=== PATIENT | male | born 1970 | race Caucasian/White ===

== ENCOUNTER 2016-06-24 11:21 | Observation (INO) ==
--- NOTE | 2016-06-24 11:37 | Emergency Department Note ---
Disposition Clinical Impression: Abdominal pain Qualifiers: Abdominal location: right lower quadrant Qualified Code(s): R10.31 - Right lower quadrant pain Disposition: Admitted As Inpatient Condition: Good Time of Disposition: 14:16 Abdominal Pain HPI - General Chief Complaint: ED Abdominal Pain Stated Complaint: "I think it may be appendicitis" Source: patient Mode of arrival: ambulatory Limitations: no limitations Nursing Notes Reviewed: Yes Vital Signs Reviewed: Yes - History of Present Illness HPI Narrative: 45-year-old male history of acute intermittent porphyria presents to the ED with right lower quadrant pain. On Friday he experienced periumbilical pain. Starting yesterday and today he has had nausea vomiting with episode nonbloody diarrhea. Today around 830, pain has migrated to the right lower quadrant and is sharp in nature. Reports a low-grade fever. Denies any urinary symptoms, scrotal pain, testicular tenderness. History of cholecystectomy. Denies any anticoagulants. Denies any bloody stools or black tarry stools. Pt Subjective Complaint: abdominal pain Pain Scale: 6 - Related Data Home Medications Medication Instructions Recorded Confirmed Citalopram [CeleXA] 20 mg PO DAILY 06/29/15 12/19/15 Indomethacin 50 mg PO BID 06/29/15 12/19/15 Metoprolol XL (24 HR) Succ [Toprol 50 mg PO DAILY PRN 06/29/15 12/19/15 Xl] Febuxostat [Uloric] 80 mg PO DAILY 12/19/15 12/19/15 Midodrine [ProAmatine] 5 mg PO DAILY 12/19/15 12/19/15 Omeprazole [PriLOSEC] 20 mg PO DAILY 12/19/15 12/19/15 Previous Rx's Medication Instructions Recorded Ondansetron ODT [Zofran ODT] 4 mg SL Q8HR #15 tab.rapdis 07/01/15 Allergies Allergy/AdvReac Type Severity Reaction Status Date / Time acetaminophen Allergy Hives Verified 06/29/15 15:39 [From Darvocet-N] cefepime Allergy Hives Verified 06/29/15 15:39 Erythromycin Base Allergy Hives Verified 06/29/15 15:39 morphine Allergy Hives Verified 06/29/15 15:39 piperacillin [From Zosyn] Allergy Hives Verified 06/29/15 15:39 propoxyphene Allergy Hives Verified 06/29/15 15:39 [From Darvocet-N] shellfish derived Allergy Anaphylaxis Verified 06/29/15 15:39 tazobactam [From Zosyn] Allergy Hives Verified 06/29/15 15:39 codeine AdvReac Gastrointestinal Verified 06/29/15 15:39 [From Tylenol-Codeine #3] Upset metoclopramide [From Reglan] AdvReac Hives Verified 12/19/15 09:39 All systems ED: reviewed and negative except as stated. Constitutional: Reports: fever. Denies: chills Cardiovascular: Denies: chest pain Respiratory: Denies: cough, dyspnea Gastrointestinal: Reports: abdominal pain, nausea, vomiting, diarrhea. Denies: melena, hematochezia Genitourinary: Denies: urgency, dysuria, frequency Musculoskeletal: Denies: back pain Integumentary: Denies: rash Abdominal Pain PMH - Past Medical History Medical history: Reports: kidney stones, SVT, other Psychiatric history: Reports: no psych history - Social History Smoking status: Never smoker Alcohol use: Reports: rarely Drug use: Reports: none Physical Exam - General Limitations: no limitations General appearance: alert, in distress (Uncomfortable) - Head Head exam: atraumatic, normocephalic, normal inspection - Eye Eye exam: Present: normal appearance, PERRL, EOMI - ENT ENT exam: normal exam, normal oropharynx, mucous membranes moist - Neck Neck exam: Present: normal inspection, full ROM, trachea midline - Chest Chest inspection: Present: normal inspection, symmetric chest wall rise - Respiratory Respiratory exam: Present: normal lung sounds bilaterally - Cardiovascular Cardiovascular exam: Present: regular rate, normal rhythm, normal heart sounds - Abdominal Exam Abdominal exam: Present: soft, tenderness, normal bowel sounds, psoas sign, Rovsing's sign, tenderness at McBurney's Point. Absent: distention, guarding, rebound, rigidity Abdominal tenderness: Present: RLQ, severe - Extremities Exam Extremities exam: Present: normal inspection, full ROM, normal capillary refill. Absent: tenderness, pedal edema, calf tenderness - Neurological Exam Neurological exam: Present: alert, oriented X3 - Psychiatric Psychiatric exam: Present: normal affect, normal mood - Skin Skin exam: Present: warm, dry, intact, normal color. Absent: rash Course Course Narrative: 45-year-old male presents with right lower quadrant pain. Clinically he appears to be appendicitis. Abdomen is soft, nondistended. Pain in right lower quadrant with positive McBurney's point and Rovsing sign. He is allergic to shellfish and CT contrast. Will get basic labs and CT without contrast. Allergic to morphine, Fentanyl ordered for pain. - Reevaluation(s) Reevaluation #1: Continues to have pain even with Fentanyl. He reports he can take Dilaudid or Demerol for pain. Awaiting CT scan results. Time: 13:02 Reevaluation #2: CT of the abdomen and pelvis does not reveal signs for appendicitis or obstructive uropathy. Patient continues to have right lower quadrant pain. Reports Dilaudid sent off his porphyria. Currently nauseated as a result. Phenergan ordered. Due to his acute onset this could be early appendicitis were CT may not be sensitive. Will consult Dr. Torres for possible admission. Time: 14:10 - Consultations Consultation #1: Spoke with adelina Ames to admit to surgery service. Recommend D5 1/2 NS 150 mL/hr. Given his acute onset, CT may not reveal appendicitis at this time. Admit for serial exams for possible appendicitis. Recommends low dose Dilaudid for pain control at 0.5 mg. Time: 14:12 Vital Signs Temperature 98.6 F 06/24/16 11:25 Pulse Rate 74 06/24/16 11:25 Respiratory Rate 16 06/24/16 11:25 Blood Pressure 130/90 06/24/16 11:25 O2 Sat by Pulse Oximetry 100 06/24/16 11:25 Temperature 98.6 F 06/24/16 11:25 Pulse Rate 65 06/24/16 12:46 Respiratory Rate 16 06/24/16 12:46 Blood Pressure 145/82 06/24/16 12:46 O2 Sat by Pulse Oximetry 96 06/24/16 12:46 Oxygen Delivery Oxygen Delivery Room Air Abdominal Pain - Medical Records Medical records reviewed: Yes I reviewed the patient's medical records. - Lab Data Lab results reviewed: Yes I reviewed the patient's lab results. Result diagrams: 06/24/16 12:41 06/24/16 12:41 Lab Results 06/24/16 06/24/16 06/24/16 Range/Units 12:41 12:41 12:41 WBC 4.0 L (4.3-11.1) K/mcL RBC 4.70 (4.19-5.50) M/mcL Hgb 15.0 (12.9-16.9) g/dL Hct 42.7 (37.5-50.1) % MCV 90.9 (83.0-100.0) fL MCH 31.9 (28.0-33.3) pg MCHC 35.1 (31.6-35.5) g/dL RDW 12.3 (11.5-14.5) % Plt Count 194 (140-400) K/mcL MPV 8.9 L (9.4-12.4) fL Immature Gran % 0.2 (0-4) % Seg Neutrophils % 52.3 % Lymphocytes % 37.3 % Monocytes % 7.5 % Eosinophils % 1.7 % Basophils % 1.0 % Neutrophils # 2.1 (1.6-8.9) K/mcL Lymphocytes # 1.5 (0.6-4.6) K/mcL Monocytes # 0.3 (0.0-1.3) K/mcL Eosinophils # 0.1 (0.0-0.6) K/mcL Basophils # 0.0 (0.0-0.2) K/mcL Immature Plt Fraction 1.8 (1.1-6.1) % PT 11.7 (9.4-12.1) Seconds INR 1.1 APTT 28.6 (26.0-36.0) Seconds Sodium 145 (136-145) mEq/L Potassium 3.7 (3.5-4.5) mEq/L Chloride 113 H (98-109) mEq/L Carbon Dioxide 22 (19-29) mEq/L BUN 14 (8-26) mg/dL Creatinine 1.05 (0.72-1.25) mg/dL Est GFR ( Amer) > 60 (> 60) Est GFR (Non-Af Amer) > 60 (> 60) BUN/Creatinine Ratio 13 (6-26) Glucose 101 H (70-99) mg/dL Calculated Osmolality 301 H (280-300) Calcium 8.6 (8.6-10.8) mg/dL Total Bilirubin 0.7 (0.2-1.2) mg/dL Direct Bilirubin 0.3 (0.0-0.5) mg/dL Indirect Bilirubin 0.4 (0.0-1.2) mg/dL AST 41 H (5-34) Units/L ALT 72 H (0-55) Units/L Alkaline Phosphatase 70 (38-126) Units/L Serum Total Protein 7.1 (6.0-8.3) g/dL Albumin 3.8 (3.5-5.0) g/dL Globulin 3.3 (2.4-3.5) g/dL Albumin/Globulin Ratio 1.2 (1.1-2.2) Lipase (8-78) Units/L 06/24/16 Range/Units 12:41 WBC (4.3-11.1) K/mcL RBC (4.19-5.50) M/mcL Hgb (12.9-16.9) g/dL Hct (37.5-50.1) % MCV (83.0-100.0) fL MCH (28.0-33.3) pg MCHC (31.6-35.5) g/dL RDW (11.5-14.5) % Plt Count (140-400) K/mcL MPV (9.4-12.4) fL Immature Gran % (0-4) % Seg Neutrophils % % Lymphocytes % % Monocytes % % Eosinophils % % Basophils % % Neutrophils # (1.6-8.9) K/mcL Lymphocytes # (0.6-4.6) K/mcL Monocytes # (0.0-1.3) K/mcL Eosinophils # (0.0-0.6) K/mcL Basophils # (0.0-0.2) K/mcL Immature Plt Fraction (1.1-6.1) % PT (9.4-12.1) Seconds INR APTT (26.0-36.0) Seconds Sodium (136-145) mEq/L Potassium (3.5-4.5) mEq/L Chloride (98-109) mEq/L Carbon Dioxide (19-29) mEq/L BUN (8-26) mg/dL Creatinine (0.72-1.25) mg/dL Est GFR ( Amer) (> 60) Est GFR (Non-Af Amer) (> 60) BUN/Creatinine Ratio (6-26) Glucose (70-99) mg/dL Calculated Osmolality (280-300) Calcium (8.6-10.8) mg/dL Total Bilirubin (0.2-1.2) mg/dL Direct Bilirubin (0.0-0.5) mg/dL Indirect Bilirubin (0.0-1.2) mg/dL AST (5-34) Units/L ALT (0-55) Units/L Alkaline Phosphatase (38-126) Units/L Serum Total Protein (6.0-8.3) g/dL Albumin (3.5-5.0) g/dL Globulin (2.4-3.5) g/dL Albumin/Globulin Ratio (1.1-2.2) Lipase 36 (8-78) Units/L - Radiology Data Radiology results reviewed: Yes I reviewed the patient's radiology results. Abdomen/Pelvis CT 06/24/16 11:36 IMPRESSION: 1. No acute finding in the abdomen or pelvis to account for patient's right lower quadrant abdominal pain. Specifically, there is no evidence of obstructive uropathy or appendicitis. D/ / 06/24/2016 13:51:39 Juan Alberto Lazaro MD / [email or web address] Interpreting Provider: Juan Alberto Lazaro MD Attestation Statement - Attestation Attestation: Patient was seen with resident physician. I reviewed the history, physical, assessment and plan, and agree with the findings. I also personally evaluated this patient and had [id number] time with this patient. 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 Patient's had nausea and vomiting as well pain started originally in the periumbilical area and has since radiated to the right lower quadrant where it has remained. Patient's exquisitely tender to palpation and is concerned that he might have appendicitis which prompted him to come to the emergency department. No fevers or chills at this point no dysuria. On examination ENT is normal heart and lungs are normal. Abdomen is soft there is exquisite tenderness with guarding in the right lower quadrant. Bowel sounds are present. Extremities are unremarkable. We will do CT scan without contrast as the patient is allergic to try and help ascertain the extent of his abdominal issues. Additionally will get lab tests and treat his pain as well as his nausea. Disposition according to the findings of the workup. CT scan did not show any acute abnormalities. Workup was otherwise normal. Patient had some difficulty tolerating pain medication which exacerbated his porphyria. This was treated while in the emergency department as well. Although the imaging was okay the patient's clinical exam was very suggestive of appendicitis and her concerns that might have been an early development still. We talked with Dr. martinez with whom the patient knows, and he agreed to admit the patient for serial abdominal examinations. We manage the pain and nausea this patient to the best of our ability will not emerge department will be admitted to Dr. martinez for further evaluation and treatment. I agree with the resident physician assessment and plan.
[2016-06-24] MEDS ORDERED: *HR* FentaNYL (PF) 100 MCG/2 ML VIAL IVP ONE ×2 (11:42→13:30)
[2016-06-24] MEDS ORDERED: Ondansetron 4 MG/2 ML VIAL IVP STA (12:09)
[2016-06-24 12:48] LABS: Eosinophils # 0.1 K/mcL (0.0-0.6); Eosinophils % 1.7 %; Hematocrit 42.7 % (37.5-50.1); Immature Granulocytes % 0.2 % (0-4); Immature Platelets 1.8 % (1.1-6.1); Lymphocytes # 1.5 K/mcL (0.6-4.6); Lymphocytes % 37.3 %; Mean Corpuscular HGB Conc 35.1 g/dL (31.6-35.5); Mean Corpuscular Hemoglobin 31.9 pg (28.0-33.3); Mean Corpuscular Volume 90.9 fL (83.0-100.0); Mean Platelet Volume 8.9 fL (9.4-12.4); Monocytes # 0.3 K/mcL (0.0-1.3); Monocytes % 7.5 %; Neutrophils # 2.1 K/mcL (1.6-8.9); Platelet Count 194 K/mcL (140-400); Red Cell Distribution Width 12.3 % (11.5-14.5); Segmented Neutrophils % 52.3 %
[2016-06-24 12:55] LABS: INR 1.1; Prothrombin Time 11.7 Seconds (9.4-12.1)
[2016-06-24] MEDS ORDERED: *HR* HYDROmorphone (PF) 1 MG/ML SYRINGE IVP ONE (12:56)
[2016-06-24 12:57] LABS: Activated Partial Thrombo Time 28.6 Seconds (26.0-36.0)
[2016-06-24 13:02] LABS: Alanine Aminotransferase 72 Units/L (0-55); Albumin 3.8 g/dL (3.5-5.0); Albumin/Globulin Ratio 1.2 (1.1-2.2); Alkaline Phosphatase 70 Units/L (38-126); Aspartate Amino Transferase 41 Units/L (5-34); BUN/Creatinine Ratio 13 (6-26); Bilirubin,Direct 0.3 mg/dL (0.0-0.5); Bilirubin,Indirect 0.4 mg/dL (0.0-1.2); Bilirubin,Total 0.7 mg/dL (0.2-1.2); Blood Urea Nitrogen 14 mg/dL (8-26); Calcium 8.6 mg/dL (8.6-10.8); Carbon Dioxide 22 mEq/L (19-29); Chloride 113 mEq/L (98-109); Globulin 3.3 g/dL (2.4-3.5); Glucose 101 mg/dL (70-99); Osmolality,Calculated 301 (280-300); Potassium 3.7 mEq/L (3.5-4.5); Sodium 145 mEq/L (136-145); Total Protein 7.1 g/dL (6.0-8.3); eGFR For African Americans > 60 (> 60); eGFR For Non-African Americans > 60 (> 60)
[2016-06-24] MEDS ORDERED: *HR* Dextrose 50 % in Water (Syg) 50 ML SYRINGE IVP ONE (13:29)
[2016-06-24] MEDS ORDERED: *HR* Promethazine 25 MG/ML VIAL IVP ONE ×2 (13:31→17:29)
[2016-06-24] MEDS: D5% in 0.45% NACL 1,000 ML IVC SCH ×2 (15:54→23:32)
[2016-06-24] MEDS: *HR* FentaNYL (PF) 100 MCG/2 ML VIAL IVP ONE ×2 (16:03→16:13)
[2016-06-24] MEDS ORDERED: *HR* Promethazine 25 MG/ML VIAL ONE (17:32)
[2016-06-24] MEDS: *HR* HYDROmorphone (PF) 1 MG/ML SYRINGE IVP PRN ×4 (18:59→23:32)
[2016-06-24] MEDS: MetroNIDAZOLE 500 MG/100 ML 500 MG/100 ML BAG IVPB SCH (18:59)
[2016-06-24] MEDS: Pantoprazole 40 MG VIAL IVP SCH (19:14)
--- NOTE | 2016-06-24 19:18 | General Surg History&Physical ---
Date of Encounter: 06/24/16 Time of Encounter: 18:15 History of Present Illness Chief complaint: Acute right lower quadrant abdominal pain, nausea and vomiting HPI: Mr. Jordan is a 45 year old male referred to [facility] after presenting to the [facility] ED with new onset right lower quadrant abdominal pain, nausea, and vomiting. Patient indicates symptoms started last evening but became acutely severe this morning prompting the patient to present to the Emergency Department for further evaluation and treatment. Patient was found to be exquisitely tender in the right lower quadrant. Laboratories were nondiagnostic with white count 4.0, hemoglobin 15, hematocrit 42.7, platelet count 194,000. Electrolytes, BUN, creatinine within normal limits. Total bilirubin 0.7, AST 41, ALT 72, alkaline phosphatase 70. Past medical history: Porphyria, kidney stones, paroxysmal SVT; avascular necrosis of the right hip Surgical history: Cardiac ablation for SVT; cystectomy 1995; right total hip for avascular necrosis 2013; right knee arthroscopy x 2 Allergies: Darvocet (propoxyphene), cefepime, erythromycin, morphine, codeine, metoclopramide. The patient indicates he tolerates Dilaudid. Medications: Citalopram 20 mg by mouth daily Indomethacin 50 mg by mouth twice a day Metoprolol XL 50 mg by mouth daily when necessary Fubuxostat (uloric) 80 mg by mouth daily Midodrine 5 mg by mouth daily Omeprazole 20 mg by mouth daily Social history: The patient is employed [employer]; the patient does not smoke, never has; he denies any illicit drug use or alcohol consumption. Physical examination: Age-appropriate male; sent quietly in his hospital bed. The patient is afebrile, 97.6, pulse 69, respirations 16, blood pressure 148/91. SPO2 on room air 98-100%. Skin is warm, no obvious jaundice Lungs: Clear, there is noted abdominal pain on deep inspiration. The patient indicates "it hurts to walk" Cardiac: Regular rate, no appreciable murmurs Abdomen: Soft with tenderness in the right lower quadrant; no discernible masses. Referred pain to the right lower quadrant when the left lower quadrant is palpated (Rovsing sign). No obvious rebound. Bowel sounds were sent. Extremities: No obvious clubbing cyanosis or edema. Laboratories: As noted above CT was reviewed with [facility] - the appendix was visualized and appeared normal. No acute findings in the abdomen or pelvis. No renal or ureteral stones detected. Mild fatty atrophy of the colon submucosa is noted which may be indicative of colitis or other chronic inflammation v an incidental finding in this acutely ill patient. It is possible for CT to be falsely negative if imaging completed within 24 hours onset of symptoms. Plan : admit for observation, serial abdominal exams. patient to remain NPO with IV fluids, pain control and antiemetics repeat labs in AM. Past Med Surg Social Fam HX - Past Medical History Medical history: kidney stones, SVT, other Psychiatric history: no psych history - Past Surgical History Surgical History: cholecystectomy, hip replacement - Social History Smoking Status: Never smoker Smokeless Tobacco Status: No Alcohol use: rarely Drug use: none - Family History Mother Adopted: No Living Status: Still Living Hx Family Cardiac Disorders: Yes (cardiac thoracic aneursym, Afib) Hx Family Respiratory Disorders: No Hx Family Cancer: No Hx Family GI Disorders: No Hx Family Endocrine Disorder: Yes (thyroid removal) Hx Family Neuromuscular Disorders: No Hx Family Neurologic Disorders: Yes (migranes) Hx Family HEENT Disorders: No Hx Family Autoimmune Disorders: No Father Living Status: Still Living Hx Family Cardiac Disorders: Yes (HTN, Cardiac Stent) Hx Family Endocrine Disorder: Yes (DM) Medications and Allergies Citalopram [CeleXA] 20 mg PO DAILY 06/29/15 [History] Metoprolol XL (24 HR) Succ [Toprol Xl] 50 mg PO DAILY PRN 06/29/15 [History] Febuxostat [Uloric] 120 mg PO DAILY 12/19/15 [History] Colchicine [Colcrys] 0.6 mg PO DAILY 06/24/16 [History] Ondansetron ODT [Zofran ODT] 4 mg SL Q6H PRN 06/24/16 [History] Allergies acetaminophen [From Darvocet-N] Allergy (Verified 06/29/15 15:39) Hives cefepime Allergy (Verified 06/29/15 15:39) Hives Erythromycin Base Allergy (Verified 06/29/15 15:39) Hives morphine Allergy (Verified 06/29/15 15:39) Hives piperacillin [From Zosyn] Allergy (Verified 06/29/15 15:39) Hives propoxyphene [From Darvocet-N] Allergy (Verified 06/29/15 15:39) Hives shellfish derived Allergy (Verified 06/29/15 15:39) Anaphylaxis tazobactam [From Zosyn] Allergy (Verified 06/29/15 15:39) Hives codeine [From Tylenol-Codeine #3] Adverse Reaction (Verified 06/29/15 15:39) Gastrointestinal Upset metoclopramide [From Reglan] Adverse Reaction (Verified 12/19/15 09:39) Hives Review of Systems All systems PM: A 10-system review of systems was performed and is negative for pertinent findings except as documented above in the HPI. General Surgery Exam Initial Vital Signs Temp Pulse Resp BP Pulse Ox 98.6 F 74 16 130/90 100 06/24/16 11:25 06/24/16 11:25 06/24/16 11:25 06/24/16 11:25 06/24/16 11:25 Results - Labs 06/24/16 12:41 06/24/16 12:41 Abnormal lab results WBC 4.0 K/mcL (4.3-11.1) L 06/24/16 12:41 MPV 8.9 fL (9.4-12.4) L 06/24/16 12:41 Chloride 113 mEq/L (98-109) H 06/24/16 12:41 Glucose 101 mg/dL (70-99) H 06/24/16 12:41 Calculated Osmolality 301 (280-300) H 06/24/16 12:41 AST 41 Units/L (5-34) H 06/24/16 12:41 ALT 72 Units/L (0-55) H 06/24/16 12:41 All other labs normal.
[2016-06-24] MEDS: *HR* Promethazine 25 MG/ML VIAL IVP PRN (21:40)
[2016-06-25] MEDS: MetroNIDAZOLE 500 MG/100 ML 500 MG/100 ML BAG IVPB SCH ×3 (01:55→20:48)
[2016-06-25] MEDS: *HR* Promethazine 25 MG/ML VIAL IVP PRN ×4 (01:55→18:19)
[2016-06-25] MEDS: *HR* HYDROmorphone (PF) 1 MG/ML SYRINGE IVP PRN ×7 (03:53→20:49)
[2016-06-25] MEDS: D5% in 0.45% NACL 1,000 ML IVC SCH ×2 (06:00→13:41)
[2016-06-25] MEDS: Pantoprazole 40 MG VIAL IVP SCH (08:04)
[2016-06-25 08:26] LABS: Basophils % 0.5 %; Eosinophils # 0.2 K/mcL (0.0-0.6); Eosinophils % 2.9 %; Hematocrit 39.3 % (37.5-50.1); Hemoglobin 14.3 g/dL (12.9-16.9); Immature Granulocytes % 0.2 % (0-4); Lymphocytes # 1.5 K/mcL (0.6-4.6); Lymphocytes % 27.4 %; Mean Corpuscular HGB Conc 36.4 g/dL (31.6-35.5); Mean Corpuscular Hemoglobin 32.9 pg (28.0-33.3); Mean Corpuscular Volume 90.6 fL (83.0-100.0); Mean Platelet Volume 9.8 fL (9.4-12.4); Monocytes # 0.4 K/mcL (0.0-1.3); Monocytes % 6.9 %; Neutrophils # 3.4 K/mcL (1.6-8.9); Platelet Count 142 K/mcL (140-400); Red Blood Count 4.34 M/mcL (4.19-5.50); Red Cell Distribution Width 11.9 % (11.5-14.5); Segmented Neutrophils % 62.1 %
[2016-06-25 08:31] LABS: BUN/Creatinine Ratio 13 (6-26); Blood Urea Nitrogen 12 mg/dL (8-26); Calcium 7.5 mg/dL (8.6-10.8); Carbon Dioxide 22 mEq/L (19-29); Chloride 109 mEq/L (98-109); Glucose 85 mg/dL (70-99); Osmolality,Calculated 291 (280-300); Potassium 3.3 mEq/L (3.5-4.5); Sodium 141 mEq/L (136-145); eGFR For African Americans > 60 (> 60); eGFR For Non-African Americans > 60 (> 60)
--- NOTE | 2016-06-25 08:33 | General Surgery Progress Note ---
Date of Encounter: 06/25/16 Time of Encounter: 07:55 Subjective Patient reports: still having pain Narrative: Hospital Day #1 - patient still complaining of RLQ abdominal pain. Characterized as " the same as yesterday" no further N/V, controlled by antiemetics Afeb, Vss Lungs CTA Abd tender RLQ with referred pain from the LLQ when palpated. No detected intra abd mass though exam limited by patient's tenderness Repeat WBC 5.5 with normal differential. Patient convinced he has acute appendicitis. It is entirely possible but there are no supporting lab or radiologic findings Plan: repeat CT. Objective Vital Signs - Last 8 Hours Temp Pulse Resp BP Pulse Ox 06/25/16 07:57 98.7 F 71 16 166/97 99 06/25/16 03:38 98.6 F 68 16 151/84 97 Intake and Output 06/24/16 06/25/16 06/25/16 23:59 07:59 15:59 Intake Total 1300 / 1300 1100 / 1100 Output Total 0 / 0 Balance 1300 / 1300 1100 / 1100 Intake: IV Fluids 1300 / 1300 1100 / 1100 D5% And 0.45% Nacl 1000 1000 / 1000 1000 / 1000 Ml Bag 1,000 ML @ 150 mls /hr IVC .[id number] [facility] Rx#: [id number] Cipro 400 MG/200 ML 400 200 / 200 mg In 200 ml @ 200 mls/hr IVPB Q12H [facility] Rx#: [id number] Flagyl 500 MG/100 ML 500 100 / 100 100 / 100 mg In 100 ml @ 100 mls/hr IVPB 0300,1100,1900 [facility] Rx#:[id number] Oral 0 / 0 Output: Urine 0 / 0 Other: Meal NPO Stool Size Moderate Stool Consistency soft Stool Color Brown # Voids 1 # Urine Diapers 1 # Bowel Movements 1 Blood Glucose* 111 98 - Labs 06/25/16 07:15 06/25/16 07:15 Consult Discharge Plan - Plan Referrals: NO,PCP [Primary Care Provider] -
[2016-06-25] MEDS ORDERED: *HR* HYDROmorphone (PF) 1 MG/ML SYRINGE IM ONE (14:10)
--- NOTE | 2016-06-25 16:19 | Event Note ---
Date of Encounter: 06/25/16 Time of Encounter: 16:15 CT repeated this AM. Personally reviewed with [facility]. No findings to suggest acute appendicitis. These findings discussed with patient. No other identified findings on CT to explain patient's symptoms. No renal or ureteral findings. Treatment plan - continue to monitor. Allow clear liquids. If symptoms fail to resolve in the next 24 hours may consider appendectomy despite lack of corroboration lab or radiologic findings Patient still c/o localized RLQ abdominal pain with palpation LLQ causing referred pain to the RLQ. No N/V - controlled with phenergan
[2016-06-25] MEDS ORDERED: D5% in 0.45% NACL 1,000 ML IVC SCH (16:30)
[2016-06-26] MEDS: *HR* Promethazine 25 MG/ML VIAL IVP PRN ×4 (00:12→21:27)
[2016-06-26] MEDS: MetroNIDAZOLE 500 MG/100 ML 500 MG/100 ML BAG IVPB SCH (03:33)
[2016-06-26 03:42] LABS: Basophils % 0.5 %; Eosinophils # 0.2 K/mcL (0.0-0.6); Eosinophils % 6.1 %; Hematocrit 36.6 % (37.5-50.1); Hemoglobin 13.2 g/dL (12.9-16.9); Immature Granulocytes % 0.3 % (0-4); Immature Platelets 2.2 % (1.1-6.1); Lymphocytes # 1.1 K/mcL (0.6-4.6); Lymphocytes % 29.7 %; Mean Corpuscular HGB Conc 36.1 g/dL (31.6-35.5); Mean Corpuscular Hemoglobin 32.4 pg (28.0-33.3); Mean Corpuscular Volume 89.9 fL (83.0-100.0); Mean Platelet Volume 9.2 fL (9.4-12.4); Monocytes # 0.4 K/mcL (0.0-1.3); Monocytes % 9.2 %; Neutrophils # 2.1 K/mcL (1.6-8.9); Platelet Count 141 K/mcL (140-400); Red Blood Count 4.07 M/mcL (4.19-5.50); Red Cell Distribution Width 11.9 % (11.5-14.5); Segmented Neutrophils % 54.2 %
[2016-06-26] MEDS: *HR* HYDROmorphone (PF) 1 MG/ML SYRINGE IVP PRN ×7 (05:44→21:08)
[2016-06-26] MEDS: Pantoprazole 40 MG VIAL IVP SCH (08:31)
[2016-06-26] MEDS ORDERED: *HR* Propofol 200 MG/20 ML VIAL IVP ONE (11:04)
[2016-06-26] MEDS ORDERED: *HR* Midazolam HCl 2 MG/2 ML VIAL ONE (11:05)
[2016-06-26] MEDS ORDERED: *HR* FentaNYL (PF) 100 MCG/2 ML VIAL ONE (11:05)
[2016-06-26] MEDS ORDERED: Bupivacaine/EPI 1:200k 0.25%PF 30 ML VIAL ONE (11:15)
--- NOTE | 2016-06-26 11:23 | Anesthesia Evaluation PreOp ---
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 History: Other (avascular necrosis of the hip) Other Medical History: Renal (stones), Other (porphyria) Anesthesia History: No Prior Anesthetic Complications, Past Anesthesia (cardiac ablation, cystectomy, r chela, r knee arth x 2) Alcohol Use: rarely Drug use: none Medications and Allergies Citalopram [CeleXA] 20 mg PO DAILY 06/29/15 [History] Metoprolol XL (24 HR) Succ [Toprol Xl] 50 mg PO DAILY PRN 06/29/15 [History] Febuxostat [Uloric] 120 mg PO DAILY 12/19/15 [History] Colchicine [Colcrys] 0.6 mg PO DAILY 06/24/16 [History] Ondansetron ODT [Zofran ODT] 4 mg SL Q6H PRN 06/24/16 [History] Allergies acetaminophen [From Darvocet-N] Allergy (Verified 06/29/15 15:39) Hives cefepime Allergy (Verified 06/29/15 15:39) Hives Erythromycin Base Allergy (Verified 06/29/15 15:39) Hives morphine Allergy (Verified 06/29/15 15:39) Hives piperacillin [From Zosyn] Allergy (Verified 06/29/15 15:39) Hives propoxyphene [From Darvocet-N] Allergy (Verified 06/29/15 15:39) Hives shellfish derived Allergy (Verified 06/29/15 15:39) Anaphylaxis tazobactam [From Zosyn] Allergy (Verified 06/29/15 15:39) Hives codeine [From Tylenol-Codeine #3] Adverse Reaction (Verified 06/29/15 15:39) Gastrointestinal Upset metoclopramide [From Reglan] Adverse Reaction (Verified 12/19/15 09:39) Hives - Meds/Allergy Pre-op Review Medications Reviewed: Yes Allergies Reviewed: Yes Beta Blockers on Current Med List: Yes If Beta Blockers taken, Date/Time (Last Dose taken): metoprolol, pt has not received Anesthesia Results - Labs 06/26/16 03:30 06/26/16 03:30 - Imaging EKG: report reviewed (sr) Anesthesia Exam Vital Signs/O2 Sat/Glucose, Most Current Temp Pulse Resp BP Pulse Ox 06/26/16 07:26 98.8 F 71 18 146/87 95 Height: 1.78 Weight: 92 NPO (# of Hours): >8 - HEENT Pupil (Motor): Pupils equal, EOMI Mallampati: II Teeth: Normal Oral Opening: Greater than 3 - PILOT STEAM YACHT LOC: Oriented PILOT STEAM YACHT Motor: Normal RUE, Normal LUE, Normal RLE, Normal LLE, Normal Face PILOT STEAM YACHT Sensory: Normal: RUE, LUE, RLE, LLE, Face - Cardiac Rhythm: Regular Murmur: None - Pulmonary Breath Sounds: bilateral Clear Respiratory Effort: Symmetrical Anesthesia Assess/Plan ASA Score: 2 (AVOID MORPHINE, KETAMINE, ETOMIDATE Okay to use propofol, fentanyl, midazolam, toradol, acetaminophen.) Modified [place] Scale for Level of Consciousness: Cooperative, oriented, and tranquil Anesthetic Plan: General Monitoring Plan: Standard Monitors Recovery Plan: PACU
--- NOTE | 2016-06-26 11:33 | General Surgery Progress Note ---
Date of Encounter: 06/26/16 Time of Encounter: 11:15 Subjective Patient reports: still having pain Narrative: Hospital day 2: Patient still complaining of pain, no nausea or vomiting. The pain is characterized as unchanged. The patient is resting in his bed, in no acute distress. The patient has not eaten, despite the allowed clear liquids, due to the abdominal pain. The patient continues to require Dilaudid hourly for control of his pain Skin is warm, without obvious jaundice. Maximum temperature 99.3; pulse 71, respirations 18, blood pressure 146/87 Lungs: Clear Abdomen: Tender in the right lower quadrant with referred pain from the left lower quadrant. The tenderness reduces my ability to examine the patient for palpable masses. No elicited rebound. Bowel sounds are hypoactive. Bowel movement recorded last evening with no symptomatic improvement. Laboratories: White count 3.8, hemoglobin 13.2, hematocrit 36.6. Platelet count 141,000. Potassium 3.2 - the potassium supplementation was not administered. Impression: Persistent acute right lower quadrant abdominal pain. Clinical findings are consistent with acute appendicitis though no corroborating evidence such as leukocytosis or abnormal CT present. Symptoms have persisted over the last 48 hours without improvement. The patient remains convinced that this is acute appendicitis. As there are no other identified etiologies for the patient 's symptoms, laparoscopic appendectomy, possible open appendectomy will be scheduled. The procedure was discussed. Risks including hemorrhage, infection, intra-abdominal abscess, injury to adjacent structures and persistent pain. The possibility of removing a normal appendix was discussed and acknowledged by the patient. Consent has been granted by the patient. Objective Vital Signs - Last 8 Hours Temp Pulse Resp BP Pulse Ox 06/26/16 07:26 98.8 F 71 18 146/87 95 Intake and Output 06/25/16 06/26/16 06/26/16 23:59 07:59 15:59 Intake Total 400 / 400 300 / 300 Output Total 0 / 0 Balance 400 / 400 300 / 300 Intake: IV Fluids 400 / 400 300 / 300 Cipro 400 MG/200 ML 400 200 / 200 200 / 200 mg In 200 ml @ 200 mls/hr IVPB Q12H [facility] Rx#: [id number] Flagyl 500 MG/100 ML 500 100 / 100 100 / 100 mg In 100 ml @ 100 mls/hr IVPB 0300,1100,1900 [facility] Rx#:[id number] Potassium Chloride 10 mEq 100 / 100 /100mL 10 meq In 100 ml @ 100 mls/hr IVPB Q1H [facility] Rx#:[id number] Oral 0 / 0 Output: Urine 0 / 0 Other: Meal Dinner Percent of Meal Consumed 0% # Voids 0 1 Blood Glucose* 112 - Labs 06/26/16 03:30 06/26/16 03:30 Diabetes panel 06/26/16 Range/Units 03:30 Potassium 3.2 L (3.5-4.5) mEq/L Pituitary panel 06/26/16 Range/Units 03:30 Potassium 3.2 L (3.5-4.5) mEq/L Adrenal panel 06/26/16 Range/Units 03:30 Potassium 3.2 L (3.5-4.5) mEq/L Consult Discharge Plan - Plan Referrals: NO,PCP [Primary Care Provider] -
[2016-06-26] MEDS ORDERED: Acetaminophen IV 1,000 MG/100 ML INFUS..BTL ONE (12:20)
[2016-06-26] MEDS ORDERED: Ketorolac 30 MG/ML VIAL ONE (12:27)
[2016-06-26] MEDS ORDERED: Ondansetron 4 MG/2 ML VIAL ONE (12:27)
[2016-06-26] MEDS ORDERED: Dexamethasone 4 MG/ML VIAL ONE (12:27)
[2016-06-26] MEDS ORDERED: Neostigmine Methylsulfate 3 MG/3 ML SYRINGE ONE (12:28)
[2016-06-26] MEDS ORDERED: *HR* HYDROmorphone (PF) 1 MG/ML SYRINGE IVP PRN (12:37)
[2016-06-26] MEDS ORDERED: Ondansetron 4 MG/2 ML VIAL IVP ONE (12:37)
[2016-06-26] MEDS ORDERED: *HR* HYDROmorphone 2 MG/ML SYRINGE ONE (12:43)
[2016-06-26] MEDS ORDERED: Ringers Solution, Lactated 500 ML IVC ONE (12:57)
--- NOTE | 2016-06-26 13:06 | Operative Note ---
Date of procedure: 06/26/16 Pre-op diagnosis: Persistent right lower quadrant abdominal pain Post-op diagnosis: same Procedure: Laparoscopic appendectomy Complications: None apparent Anesthesia: GETA Local Anesthetics: 0.25% Sensorcaine HCL with Epinephrine 1:200,000 SubQ (cc) ( 20 mL) Surgeon: Jeffrey Torres Estimated blood loss (cc): 2 IV fluids (cc): 1,000 Specimen: appendix Condition: stable Disposition: PACU Procedure in Detail: The patient was brought to the operating room where he was placed supine upon the operating room table. The patient was appropriately identified as to person and procedure. The accuracy of this information was confirmed by the procedure team. The patient was intubated and anesthetized under the supervision of Dr. Rc Waller. After induction of adequate general anesthesia, the abdomen was palpated with no discernible intra-abdominal masses. The abdomen was prepped and draped in the usual sterile fashion. Several milliliters of 0.25% bupivacaine with 1-200,000 units epinephrine was infiltrated into the infraumbilical skin. A small transverse incision was made. Dissection was carried to the fascia. Additional bupivacaine with epinephrine was infiltrated into the fascia. The fascia was grasped, elevated, and incised. An 11 mm Xcel port was established. The rigid laparoscope was placed within the obturator to visualize passage through the layers of the anterior abdominal wall. Once the abdominal cavity was accessed, the obturator was replaced by the rigid laparoscope. The abdomen was insufflated with gaseous carbon dioxide. There was no obvious injury from established and the port. Under direct visualization, a 5 mm port was placed in the midline suprapubic area, and a 12 mm port established in the left lower quadrant midclavicular line. Both sides were infiltrated with bupivacaine with epinephrine solution. He Was identified, grasped with a endoscopic Holiday, and elevated. The attached appendix was identified. No acute inflammation was identified. The mesoappendix was divided at the junction between the appendix and the cecum. The appendix was transected at its junction with the cecum using an Ethicon ATS 45 mm stapler (blue cartridge). The mesoappendix was then transected using the Ethicon ATS 45 mm stapler (vascular cartridge). Once from surrounding structures, the appendix was placed in an endoscopic pouch and extracted through the infraumbilical opening. The appendix was recovered and sent to pathology. The staple lines were inspected for adequate hemostasis. Once this was assured, the pneumoperitoneum was evacuated and the instrumentation removed. The fascia of the infraumbilical opening was closed with interrupted [id number] Vicryl using S retractors. The skin edges of the port sites were approximated with subcutaneous 4-0 Vicryl. The incisions were sealed with Dermabond dermal adhesive. The patient was taken to PACU in stable condition. Needle, sponge, and instrument counts were correct at the close of the case. Total volume of 0.25% bupivacaine with 1-200,000 units epinephrine, 20 mL.
[2016-06-26] MEDS ORDERED: Acetaminophen 325 MG TABLET PO PRN (13:27)
[2016-06-26] MEDS ORDERED: Metoprolol XL (24 HR) Succ 50 MG TAB.ER.24H PO PRN (13:27)
--- NOTE | 2016-06-26 13:34 | Anesthesia Evaluation Post Op ---
Date of Encounter: 06/26/16 Time of Encounter: 13:28 - Vital Signs Vital Signs: Vital Signs - Last 8 Hours Temp Pulse Resp BP Pulse Ox 06/26/16 13:25 97.5 F L 85 16 140/87 99 06/26/16 13:15 78 16 142/86 97 06/26/16 13:05 92 16 140/97 99 06/26/16 12:55 97 F L 97 16 163/103 100 06/26/16 07:26 98.8 F 71 18 146/87 95 Intake and Output 06/25/16 06/26/16 06/26/16 23:59 07:59 15:59 Intake Total 400 / 400 300 / 300 500 / 500 Output Total 0 / 0 2 / 2 Balance 400 / 400 300 / 300 498 / 498 Intake: IV Fluids 400 / 400 300 / 300 500 / 500 Lactated Ringers 500 ML @ 500 / 500 1000 mls/hr IVC .Q30M [facility] Rx#:[id number] Cipro 400 MG/200 ML 400 200 / 200 200 / 200 mg In 200 ml @ 200 mls/hr IVPB Q12H [facility] Rx#: [id number] Flagyl 500 MG/100 ML 500 100 / 100 100 / 100 mg In 100 ml @ 100 mls/hr IVPB 0300,1100,1900 [facility] Rx#:[id number] Potassium Chloride 10 mEq 100 / 100 /100mL 10 meq In 100 ml @ 100 mls/hr IVPB Q1H [facility] Rx#:[id number] Oral 0 / 0 Output: Urine 0 / 0 Estimated Blood Loss 2 / 2 Other: Meal Dinner Percent of Meal Consumed 0% # Voids 0 1 Blood Glucose* 112 - Lungs Lungs: Clear Ascult./Percussion - Airway Airway: Non-obstructed - Cardiovascular Regular Rate, Baseline Rhythm - Mental Status Mental Status: Alert & Oriented, Answers Appropriately - Pain Pain Scale: 0 Pain Scale used: Numeric (1 - 10) - Nausea Vomiting Nausea Vomiting: Not Present - Hydration Hydration: Tolerates oral liquids - Discharge PostOp Status: Transfer Patient to floor
[2016-06-26] MEDS: FEBUXOSTAT 120 MG PO SCH (14:25)
[2016-06-26] MEDS: D5% in 0.45% NACL 1,000 ML IVC SCH (19:38)
[2016-06-27] MEDS: D5% in 0.45% NACL 1,000 ML IVC SCH (01:14)
[2016-06-27] MEDS: *HR* HYDROmorphone (PF) 1 MG/ML SYRINGE IVP PRN ×4 (01:18→12:16)
[2016-06-27] MEDS: *HR* Promethazine 25 MG/ML VIAL IVP PRN ×3 (01:39→12:04)
[2016-06-27 03:25] LABS: Basophils % 0.1 %; Hematocrit 36.8 % (37.5-50.1); Hemoglobin 13.3 g/dL (12.9-16.9); Immature Granulocytes % 0.4 % (0-4); Lymphocytes # 0.7 K/mcL (0.6-4.6); Lymphocytes % 9.2 %; Mean Corpuscular HGB Conc 36.1 g/dL (31.6-35.5); Mean Corpuscular Hemoglobin 32.2 pg (28.0-33.3); Mean Corpuscular Volume 89.1 fL (83.0-100.0); Mean Platelet Volume 9.6 fL (9.4-12.4); Monocytes # 0.3 K/mcL (0.0-1.3); Monocytes % 3.4 %; Neutrophils # 6.6 K/mcL (1.6-8.9); Platelet Count 151 K/mcL (140-400); Red Blood Count 4.13 M/mcL (4.19-5.50); Red Cell Distribution Width 11.8 % (11.5-14.5); Segmented Neutrophils % 86.9 %
[2016-06-27] MEDS: FEBUXOSTAT 120 MG PO SCH (07:53)
[2016-06-27] MEDS ORDERED: Pantoprazole 40 MG VIAL IVP SCH (09:00)
[2016-06-27] MEDS ORDERED: Colchicine 0.6 MG TABLET PO SCH (09:00)
[2016-06-27 11:29] VITALS: BP 163/87
--- NOTE | 2016-06-27 13:17 | General Surgery Progress Note ---
Date of Encounter: 06/27/16 Time of Encounter: 12:55 Subjective Patient reports: feels better, pain is less, tolerating a regular diet Narrative: General Surgery Progress Note / Discharge Postoperative day 1: Patient feeling much improved; the preoperative abdominal pain is resolved. No referred pain from the LLQ as noted pre op. The patient's only complaint is infraumbilical port site tenderness. The patient is afebrile , 98.8, pulse 76, respirations 20, blood pressure 163/87. Lungs: Clear Cardiac: Regular rate, no appreciable murmurs Abdomen: Soft, no longer tender in the right lower quadrant. Infraumbilical incisional tenderness as expected. Port sites clean and dry. Tolerating diet; no nausea or vomiting. Laboratories: White count 7.6, hemoglobin stable at 13.3, hematocrit 36.8. Platelet count 151,000. Potassium 3.8 Pathology: Pending Impression: Postoperative day 1; patient much improved with resolution of the right lower quadrant abdominal pain. Status post laparoscopic appendectomy. Acceptable status Hypokalemia - resolved History of porphyria - stable history SVT - stable with no evidence recurrence during this hospitalization. Plan: discharge home follow up office, , 07/04/2016 Awaiting pathology results Instructions: Patient may consume a regular diet Activities as tolerated, lifting limited to less than 20 pounds Patient may shower, wash incisions with soap and water Tylenol, ibuprofen, Motrin, Advil, etc. as needed for pain Prescription for [place] 10/325 one every 6 hours as needed for pain not relieved by [id number]-nfwrzro medications;#15 Prescription for Phenergan 12.5 mg tabs 1 every 6 hours as needed for nausea vomiting; #20 Patient may resume usual home meds Objective Vital Signs - Last 8 Hours Temp Pulse Resp BP Pulse Ox 06/27/16 11:27 98.8 F 76 20 163/87 96 06/27/16 08:41 98.5 F 67 18 152/93 97 Intake and Output 06/26/16 06/27/16 06/27/16 23:59 07:59 15:59 Intake Total 240 / 240 1000 / 1000 1023 / 1023 Output Total 100 / 100 Balance 140 / 140 1000 / 1000 1023 / 1023 Intake: IV Fluids 1000 / 1000 783 / 783 D5% And 0.45% Nacl 1000 1000 / 1000 783 / 783 Ml Bag 1,000 ML @ 75 mls/ hr IVC .[id number] [facility] Rx#: [id number] Oral 240 / 240 240 / 240 Output: Urine 100 / 100 Other: Meal Breakfast Percent of Meal Consumed 100% # Voids 1 1 - Labs 06/27/16 03:20 06/27/16 03:20 Diabetes panel 06/27/16 Range/Units 03:20 Potassium 3.8 (3.5-4.5) mEq/L Pituitary panel 06/27/16 Range/Units 03:20 Potassium 3.8 (3.5-4.5) mEq/L Adrenal panel 06/27/16 Range/Units 03:20 Potassium 3.8 (3.5-4.5) mEq/L - VTE Documentation of Mechanical Device: Intermittent pneumatic compression device Consult Discharge Plan - Plan Referrals: Jeffrey Torres MD [Non-Partnered Physician] - NO,PCP [Primary Care Provider] -
--- NOTE | 2016-06-27 13:21 | Discharge Summary ---
Outpatient Proc Discharge Plan - Plan Additional Instructions: Regular diet Activity as tolerated; lifting limited to less than 20 pounds Patient may shower, wash incisions with soap and water Patient may resume usual home meds Follow-up office, 07/04/16 - please call to make appointment Tylenol, ibuprofen, Motrin, Advil, as needed for pain Rx:[place] 10/325 one every 6 hours as needed for pain not relieved by over-the- counter medications; #15 Rx:Phenergan 12.5 mg tabs 1 every 6 hours as needed for nausea or vomiting; #20 Prescriptions: HYDROcodone/Acet 10/325 mg [[place] 10-325 mg] 1 tab PO Q6HR PRN #15 tab PRN Reason: Pain Promethazine [Phenergan] 12.5 mg PO Q6HR PRN #20 tablet PRN Reason: nausea or vomiting Home Medications: Citalopram [CeleXA] 20 mg PO DAILY 06/29/15 [History] Metoprolol XL (24 HR) Succ [Toprol Xl] 50 mg PO DAILY PRN 06/29/15 [History] Febuxostat [Uloric] 120 mg PO DAILY 12/19/15 [History] Colchicine [Colcrys] 0.6 mg PO DAILY 06/24/16 [History] Ondansetron ODT [Zofran ODT] 4 mg SL Q6H PRN 06/24/16 [History] Acetaminophen [Tylenol] 650 mg PO Q6HR PRN #0 tablet 06/27/16 [Rx] HYDROcodone/Acet 10/325 mg [[place] 10-325 mg] 1 tab PO Q6HR PRN #15 tab 06/27/16 [Rx] Promethazine [Phenergan] 12.5 mg PO Q6HR PRN #20 tablet 06/27/16 [Rx]
[2016-06-27 13:25] LABS: Bilirubin,Urine Negative (Negative); Blood,Urine Negative (Negative); Clarity,Urine Clear (Clear); Color,Urine Yellow (Yellow); Glucose,Urine (UA) Normal (Normal); Ketones,Urine Negative (Negative); Leukocyte Esterase,Urine Negative (Negative); Nitrite,Urine Negative (Negative); Protein,Urine Negative (Neg-Trace); Specific Gravity,Urine 1.021 (1.010-1.025); Urobilinogen,Urine Normal (Normal)
== END 2016-06-27 14:11 | disposition home or self-care (01) ==
LOC: 3ANU 11:21 → EMEROO 11:21 → 3ANU 16:35
PROVIDERS: ADMIT Surgery; ATTEND Surgery

== ENCOUNTER 2016-09-01 08:23 | Observation (INO) ==
--- NOTE | 2016-09-01 09:02 | Emergency Department Note ---
Disposition Clinical Impression: Postoperative fever Disposition: Admitted As Inpatient Condition: Critical Time of Disposition: 11:00 Extremity Problem HPI - General Chief complaint: ED Extremity Problem,Nontraumatic Stated complaint: post surgery fever/chills Time Seen by Provider: 09/01/16 08:33 Source: patient Limitations: no limitations Nursing Notes Reviewed: Yes Vital Signs Reviewed: Yes - History of Present Illness HPI Narrative: Mr. Jordan, a 46yo male, presents from home via POV with CC: fever, chills, left foot pain. Status post 2 days left first metatarsal arthroplasty with implant. Has sharp burning pain over right metatarsal and great toe. Chills onset this AM. He has been compliant with his medications and has yet to remove his post- op-placed bandage. Allergies: morphine - acute intermittant porphyria. zosyn - hives erythromycin - hives cipro - hives multiple others PMH: SVT s/p ablation, HTN, gout Pain Scale: 8 - Related Data Home Medications Medication Instructions Recorded Confirmed Citalopram [CeleXA] 20 mg PO DAILY 06/29/15 09/01/16 Colchicine [Colcrys] 0.6 mg PO DAILY PRN 06/24/16 09/01/16 Febuxostat [Uloric] 40 mg PO DAILY 08/30/16 09/01/16 Febuxostat [Uloric] 80 mg PO DAILY 08/30/16 09/01/16 Previous Rx's Medication Instructions Recorded HYDROcodone/Acet 10/325 mg [[place] 1 tab PO Q6HR PRN #28 tab 08/30/16 10-325 mg] Allergies Allergy/AdvReac Type Severity Reaction Status Date / Time cefepime Allergy Hives Verified 09/01/16 15:20 Erythromycin Base Allergy Hives Verified 09/01/16 15:20 morphine Allergy Hives Verified 09/01/16 15:20 piperacillin [From Zosyn] Allergy Hives Verified 09/01/16 15:20 propoxyphene Allergy Hives Verified 09/01/16 15:20 [From Darvocet-N] shellfish derived Allergy Anaphylaxis Verified 09/01/16 15:20 tazobactam [From Zosyn] Allergy Hives Verified 09/01/16 15:20 ciprofloxacin [From Cipro] AdvReac Hives Verified 09/01/16 15:20 levofloxacin [From Levaquin] AdvReac See Verified 09/01/16 15:20 Comments metoclopramide [From Reglan] AdvReac Hives Verified 09/01/16 15:20 All systems ED: reviewed and negative except as stated. Constitutional: Reports: fever, chills, weakness ENT ED: Denies: congestion Cardiovascular: Denies: chest pain, palpitations, dyspnea on exertion, edema, syncope Respiratory: Denies: cough, dyspnea, wheezes Gastrointestinal: Denies: abdominal pain, nausea, vomiting, diarrhea, constipation Genitourinary: Denies: urgency, dysuria Musculoskeletal: Reports: joint swelling, arthralgia Integumentary: Reports: lesions. Denies: rash, abrasion Neurological: Reports: numbness (lt great toe). Denies: headache, weakness Past Medical History - Past Medical History Medical history: Reports: kidney stones, SVT, other Surgical history: Reports: appendectomy, cholecystectomy, hip replacement, other Psychiatric history: Reports: no psych history - Social History Smoking Status: Never smoker Smokeless Tobacco Status: No Alcohol use: Reports: none Drug use: Reports: none Physical Exam General: Patient is alert, oriented, and in no acute distress. HEENT: No facial asymmetry. Head is normocephalic and atraumatic. PERRLA, EOMI. Nasal turbinates moist and pink. Posterior pharynx without exudates or cobblestoning. Trachea midline, no palpable thyroid nodules, no thyromegaly. Cardiovascular: Heart regular rate and rhythm without clicks, rubs, gallops, or murmurs. No JVD. PMI nondisplaced. Respiratory: Symmetric chest rise with good respiratory effort. Bilateral breath sounds are clear without wheezing, crackles, or rhonchi. Abdomen: Bowel sounds present normoactive x-4 quadrants. Abdomen is soft, nondistended, and nontender. No organomegaly noted. Musculoskeletal: Able to spontaneously move left ankle and toes. Neuro: left great toe numb to tough Skin: Left great toe and first metatarsal erythmatous, swollen, warm, tender to touch with medial surgical incision closed, sutures in place, no purulance. Psych: Patient's affect is appropriate for situation. - General Limitations: no limitations General appearance: alert Course Course Narrative: 09:[address] Sessions, education consultant podiatry and patient's surgeon. He recalls the patient and requests CRP and uric acid, admit to medicine with him following. Will begin broad spectrum ABX, continue pain control. Foot X-Ray 09/01/16 08:58 IMPRESSION: 1. There has been 1st MTP joint arthroplasty. No acute osseous abnormality is present. 2. Nonspecific soft tissue swelling involving the forefoot. D/ / 09/01/2016 09:22:37 Ramses Burgos MD / jorge a Interpreting Provider: Ramses Burgos MD Given patient's multiple antibiotic allergies and the need to cover for gram- positive, MRSA, gram-negative, and Pseudomonas will provide 20mg/kg vancomycin IV as well as 20mg/kg merapenem IV Placed 20ga in left brachial vein under ultraound. Vital Signs Temperature 98.6 F 09/01/16 08:28 Pulse Rate 116 09/01/16 08:28 Respiratory Rate 18 09/01/16 08:28 Blood Pressure 139/105 09/01/16 08:28 O2 Sat by Pulse Oximetry 97 09/01/16 08:28 Temperature 98.7 F 09/02/16 23:51 Pulse Rate 86 09/02/16 23:51 Respiratory Rate 16 09/02/16 23:51 Blood Pressure 150/95 09/02/16 23:51 O2 Sat by Pulse Oximetry 95 09/02/16 23:51 Oxygen Delivery Oxygen Delivery Nasal Cannula Extremity Problem, Nontraumati - Medical Records Medical records reviewed: Yes I reviewed the patient's medical records. - Lab Data Lab results reviewed: Yes I reviewed the patient's lab results. Result diagrams: 09/03/16 04:17 09/03/16 04:17 Lab Results 09/01/16 09/01/16 09/01/16 Range/Units 09:36 09:36 09:36 WBC 4.9 (4.3-11.1) K/mcL RBC 4.27 (4.19-5.50) M/mcL Hgb 13.8 (12.9-16.9) g/dL Hct 39.8 (37.5-50.1) % MCV 93.2 (83.0-100.0) fL MCH 32.3 (28.0-33.3) pg MCHC 34.7 (31.6-35.5) g/dL RDW 13.6 (11.5-14.5) % Plt Count 148 (140-400) K/mcL MPV 9.3 L (9.4-12.4) fL Immature Gran % 0.2 (0-4) % Seg Neutrophils % 73.4 % Lymphocytes % 16.7 % Monocytes % 7.9 % Eosinophils % 1.2 % Basophils % 0.6 % Neutrophils # 3.6 (1.6-8.9) K/mcL Lymphocytes # 0.8 (0.6-4.6) K/mcL Monocytes # 0.4 (0.0-1.3) K/mcL Eosinophils # 0.1 (0.0-0.6) K/mcL Basophils # 0.0 (0.0-0.2) K/mcL Sodium 140 (136-145) mEq/L Potassium 3.6 (3.5-4.5) mEq/L Chloride 108 (98-109) mEq/L Carbon Dioxide 22 (19-29) mEq/L BUN 12 (8-26) mg/dL Creatinine 0.86 (0.72-1.25) mg/dL Est GFR ( Amer) > 60 (> 60) Est GFR (Non-Af Amer) > 60 (> 60) BUN/Creatinine Ratio 14 (6-26) Glucose 112 H (70-99) mg/dL Calculated Osmolality 291 (280-300) Lactic Acid 1.7 (0.5-2.2) mmol/L Uric Acid 7.6 H (3.5-7.2) mg/dL Calcium 8.6 (8.6-10.8) mg/dL C-Reactive Protein 47 H (Less than 5) mg/L - Radiology Data Radiology results reviewed: Yes I reviewed the patient's radiology results. Attestation Statement - Attestation Attestation: I, Ashish Mata, examined this patient and my medical decision-making was reviewed with the PROFESSOR OF RADIOLOGY/PA/Advanced Practice Nurse/Resident Physician. I agree with the documented findings, disposition and treatment plan as described except to the extent set forth below. 46-year-old male presents with concerns of fever, chills, nausea, vomiting and increased left foot pain status post first metatarsal repair 2 days ago. On physical examination the patient has tenderness to palpation of the first metatarsal joint without evidence of crepitus, erythema, induration, fluctuance or cellulitis. X-ray does not show significant degeneration of the joint or other evidence of infection. Patient was evaluated by Dr. agustin in the emergency department who agreed with the plan of action for IV antibiotics and admission to the hospital for further care. Patient has multiple allergies and was started on meropenem and vancomycin in the emergency department.
[2016-09-01] MEDS ORDERED: *HR* HYDROmorphone (PF) 1 MG/ML SYRINGE IVP ONE ×2 (09:05→09:50)
[2016-09-01 09:46] LABS: Basophils % 0.6 %; Eosinophils # 0.1 K/mcL (0.0-0.6); Eosinophils % 1.2 %; Hematocrit 39.8 % (37.5-50.1); Hemoglobin 13.8 g/dL (12.9-16.9); Immature Granulocytes % 0.2 % (0-4); Lymphocytes # 0.8 K/mcL (0.6-4.6); Lymphocytes % 16.7 %; Mean Corpuscular HGB Conc 34.7 g/dL (31.6-35.5); Mean Corpuscular Hemoglobin 32.3 pg (28.0-33.3); Mean Corpuscular Volume 93.2 fL (83.0-100.0); Mean Platelet Volume 9.3 fL (9.4-12.4); Monocytes # 0.4 K/mcL (0.0-1.3); Monocytes % 7.9 %; Neutrophils # 3.6 K/mcL (1.6-8.9); Platelet Count 148 K/mcL (140-400); Red Blood Count 4.27 M/mcL (4.19-5.50); Red Cell Distribution Width 13.6 % (11.5-14.5); Segmented Neutrophils % 73.4 %
[2016-09-01] MEDS ORDERED: Ondansetron 4 MG/2 ML VIAL IVP ONE (09:50)
[2016-09-01] MEDS ORDERED: Vancomycin 2,000 MG in D5% in Water 250 ML IVPB ONE ×2 (09:55→10:15)
[2016-09-01 09:57] LABS: BUN/Creatinine Ratio 14 (6-26); Blood Urea Nitrogen 12 mg/dL (8-26); Calcium 8.6 mg/dL (8.6-10.8); Carbon Dioxide 22 mEq/L (19-29); Chloride 108 mEq/L (98-109); Glucose 112 mg/dL (70-99); Osmolality,Calculated 291 (280-300); Potassium 3.6 mEq/L (3.5-4.5); Sodium 140 mEq/L (136-145); eGFR For African Americans > 60 (> 60); eGFR For Non-African Americans > 60 (> 60)
[2016-09-01 10:30] LABS: C-Reactive Protein 47 mg/L (Less than 5); Uric Acid 7.6 mg/dL (3.5-7.2)
[2016-09-01] MEDS ORDERED: Naloxone 0.4 MG/ML INJ IVP PRN (10:40)
[2016-09-01] MEDS ORDERED: Acetaminophen 325 MG TABLET PO PRN (10:40)
[2016-09-01] MEDS: *HR* HYDROmorphone (PF) 1 MG/ML SYRINGE IVP PRN ×4 (12:14→21:34)
--- NOTE | 2016-09-01 13:00 | Internal Med History&Physical ---
Date of Encounter: 09/01/16 Time of Encounter: 11:45 Assessment and Plan (1) Postoperative wound infection Current visit: Yes Status: Acute Will treat with IV antibiotics. Consult podiatry for further recommendations. Follow culture results. Qualifiers: Encounter type: initial encounter Qualified Code(s): T81.4XXA - Infection following a procedure, initial encounter Internal Medicine - H&P: HPI Chief complaint: Infection at recent left foot surgical site Admitted From: Emergency Dept Plans for Post Hospital Care: Home History of present illness: Mr. Jordan is a 46 year old male who underwent left foot first metatarsophalangeal joint arthroplasty 2 days back presented to the ER with complaints of increased swelling pain and redness at surgical site along with fevers and chills at home. He had been discharged immediately postsurgery on the same day. He had been doing well at that time and his pain was well controlled. However since last night he began to have fevers along with worsening pain. No focal weakness. Past Med Surg Social Fam HX - Past Medical History Attestation: Yes The following information was validated with the patient. Source: patient Medical history: kidney stones, SVT, other (Porphyria) Psychiatric history: no psych history - Past Surgical History Surgical History: appendectomy, cholecystectomy, hip replacement, other - Social History Smoking Status: Never smoker Smokeless Tobacco Status: No Alcohol use: none Drug use: none - Family History Mother Adopted: [place]: Destiny Family Member Ethnicity: Non- Living Status: Still Living Age at : 73 Hx Family Cardiac Disorders: Yes (htn) Hx Family Respiratory Disorders: No Hx Family Cancer: No Hx Family GI Disorders: No Hx Family Genitourinary Disorders: No Hx Family Endocrine Disorder: Yes (hypothyroid) Hx Family Musculoskeletal Disorders: No Hx Family Neuromuscular Disorders: No Hx Family Neurologic Disorders: No Hx Family HEENT Disorders: No Hx Family Autoimmune Disorders: No Hx Family Reproductive Disorders: No Hx Family Psychosocial Disorders: No Hx Family Medical Disorders: Yes (fibromyalgia) Father Name: Aubrey Jordan Sr Family Member Ethnicity: Non- Living Status: Still Living Age at : 74 Hx Family Cardiac Disorders: Yes (cardiac stent, htn) Hx Family Respiratory Disorders: Yes (sleep apnea) Hx Family Cancer: No Hx Family GI Disorders: No Hx Family Genitourinary Disorders: No Hx Family Endocrine Disorder: Yes (DM type 2 insulin dependent) Hx Family Musculoskeletal Disorders: Yes (arthritis) Hx Family Neuromuscular Disorders: No Hx Family Neurologic Disorders: No Hx Family HEENT Disorders: No Hx Family Autoimmune Disorders: No Hx Family Reproductive Disorders: No Hx Family Psychosocial Disorders: No Hx Family Medical Disorders: No Internal Medicine - H&P: Meds Citalopram [CeleXA] 20 mg PO DAILY 06/29/15 [History] Colchicine [Colcrys] 0.6 mg PO DAILY PRN 06/24/16 [History] Febuxostat [Uloric] 40 mg PO DAILY 08/30/16 [History] Febuxostat [Uloric] 80 mg PO DAILY 08/30/16 [History] HYDROcodone/Acet 10/325 mg [[place] 10-325 mg] 1 tab PO Q6HR PRN #28 tab 08/30/16 [Rx] Allergies cefepime Allergy (Verified 08/30/16 07:19) Hives Erythromycin Base Allergy (Verified 08/30/16 07:19) Hives morphine Allergy (Verified 08/30/16 07:19) Hives piperacillin [From Zosyn] Allergy (Verified 08/30/16 07:19) Hives propoxyphene [From Darvocet-N] Allergy (Verified 08/30/16 07:19) Hives shellfish derived Allergy (Verified 08/30/16 07:19) Anaphylaxis tazobactam [From Zosyn] Allergy (Verified 08/30/16 07:19) Hives ciprofloxacin [From Cipro] Adverse Reaction (Verified 08/30/16 07:19) Hives levofloxacin [From Levaquin] Adverse Reaction (Verified 08/30/16 07:19) See Comments tendonitis metoclopramide [From Reglan] Adverse Reaction (Verified 08/30/16 07:19) Hives All Systems PM: A 10-system review of systems was performed and is negative for pertinent findings except as documented above in the HPI. - Constitutional Constitutional: chills, fever(s), night sweats - EENT Eyes: no change in vision, no discharge, no pain, no photophobia Ears: no ear discharge, no ear pain, no tinnitus Nose, mouth and throat: no dysphagia, no nasal discharge, no neck pain, no sore throat - Cardiovascular Cardiovascular ROS IM: no chest pain, no diaphoresis, no dyspnea, no lightheadedness, no palpitations, no syncope - Respiratory Respiratory: no cough, no dyspnea, no wheezing, no excessive phlegm production - Musculoskeletal Musculoskeletal ROS IM: no numbness, no tingling Additional comments: Swelling and redness at left foot surgical site - Integumentary Integumentary IM: erythema - Neurological Neurological ROS: no confusion, no convulsions, no focal weakness, no numbness, no tingling, no tremor(s) - Hematologic/Lymphatic Hematologic/Lymphatic: no easy bruising - Constitutional Vitals: Temp Pulse Resp BP Pulse Ox 99.0 F 95 16 159/96 97 09/01/16 12:03 09/01/16 12:03 09/01/16 12:03 09/01/16 12:03 09/01/16 12:03 General appearance: Present: cooperative, mild distress, A&O X 3, answers questions appropriately - Respiratory Respiratory exam: Present: CTAB. Absent: accessory muscle use, rales, rhonchi, wheezes - Cardiovascular Cardiovascular exam: Present: RRR, +S1, +S2. Absent: diastolic murmur, gallop, rubs, systolic murmur - Extremities Exam Extremities exam: Present: tenderness (Erythema and tenderness involving the left foot surgical site over the first metatarsophalangeal joint with sero- sanguinous fluid whizzing around the sutures. Warm and tender to palpation.), warm, radial pulses palpable and symetrical. Absent: calf tenderness, cyanotic , pedal edema - Skin Skin exam: Present: dry, erythema (As described above), intact Internal Med - H&P Results - Labs CBC & Chem 7: 09/01/16 09:36 09/01/16 09:36 - Attending Attestation This document has been at least partially created by [employer] recognition technology by Dr. Garay. Errors in grammar, wording or other phrases may exist. If errors are found after the documentation is signed, they will be addressed individually in the addendum section of this document when appropriate.
[2016-09-01] MEDS ORDERED: Colchicine 0.6 MG TABLET PO PRN (13:07)
[2016-09-01] MEDS: Ondansetron 4 MG/2 ML VIAL IVP PRN ×2 (13:42→21:30)
[2016-09-01 14:59] LABS: Bilirubin,Urine Negative (Negative); Blood,Urine Negative (Negative); Clarity,Urine Clear (Clear); Color,Urine Yellow (Yellow); Glucose,Urine (UA) Normal (Normal); Ketones,Urine Negative (Negative); Leukocyte Esterase,Urine Negative (Negative); Nitrite,Urine Negative (Negative); Protein,Urine Negative (Neg-Trace); Specific Gravity,Urine 1.022 (1.010-1.025); Urobilinogen,Urine Normal (Normal)
--- NOTE | 2016-09-01 17:00 | Podiatry Consult Note ---
Date of Encounter: 09/01/16 Time of Encounter: 16:57 Assessment and Plan (1) Cellulitis of second toe of right foot Current visit: No Status: Acute At this time due to the normal lab work we will just watch the site and administer antibiotics. I do not want to remove any sutures at this time as I have concerns about the site closing after suture removal. At this time I am also unsure of whether the site is infected or not. Possible gout flareup secondary to the trauma of surgery could very easily cause similar symptoms. We will continue dressing the site, icing, elevating to decrease the edema. If there is no noted improvement within the next few hours we will consider removing some sutures to inspect for any purulence. At this time I have low suspicion of deep abscess or acute infection and feel as though this may be due to a postoperative gouty flareup. Due to the ramifications if an infection is present we will continue treating with antibiotics and monitoring closely. Daily dressing changes will consist of Adaptic, 4 x 4, Kerlix, Pascual wrap tightly. The patient will keep his foot elevated above his heart and we will continue icing it. History of Present Illness Chief complaint: Increased pain in foot HPI: Mr. Jordan is a 46 year old male with a history of porphyria, gout, kidney stones ,, SVT, appendicitis. Patient relates that after the surgery he felt quite well and was walking on his foot. Patient relates that Friday night he began having increasing symptoms. Patient relates that he started throwing up and having fever and chills. Patient relates that his foot began to swell an increase in pain. Patient relates that the swelling in his foot has increased and his fever and chills. Patient relates that he presented to the emergency department today as a result. Patient relates that he is concerned about infection. Past Med Surg Social Fam HX - Past Medical History Medical history: kidney stones, SVT, other (Porphyria) Psychiatric history: no psych history - Past Surgical History Surgical History: appendectomy, cholecystectomy, hip replacement, other - Social History Smoking Status: Never smoker Smokeless Tobacco Status: No Alcohol use: none Drug use: none - Family History Mother Adopted: [place]: Destiny Family Member Ethnicity: Non- Living Status: Still Living Age at : 73 Hx Family Cardiac Disorders: Yes (htn) Hx Family Respiratory Disorders: No Hx Family Cancer: No Hx Family GI Disorders: No Hx Family Genitourinary Disorders: No Hx Family Endocrine Disorder: Yes (hypothyroid) Hx Family Musculoskeletal Disorders: No Hx Family Neuromuscular Disorders: No Hx Family Neurologic Disorders: No Hx Family HEENT Disorders: No Hx Family Autoimmune Disorders: No Hx Family Reproductive Disorders: No Hx Family Psychosocial Disorders: No Hx Family Medical Disorders: Yes (fibromyalgia) Father Name: Aubrey Jordan Sr Family Member Ethnicity: Non- Living Status: Still Living Age at : 74 Hx Family Cardiac Disorders: Yes (cardiac stent, htn) Hx Family Respiratory Disorders: Yes (sleep apnea) Hx Family Cancer: No Hx Family GI Disorders: No Hx Family Genitourinary Disorders: No Hx Family Endocrine Disorder: Yes (DM type 2 insulin dependent) Hx Family Musculoskeletal Disorders: Yes (arthritis) Hx Family Neuromuscular Disorders: No Hx Family Neurologic Disorders: No Hx Family HEENT Disorders: No Hx Family Autoimmune Disorders: No Hx Family Reproductive Disorders: No Hx Family Psychosocial Disorders: No Hx Family Medical Disorders: No Medications and Allergies Citalopram [CeleXA] 20 mg PO DAILY 06/29/15 [History] Colchicine [Colcrys] 0.6 mg PO DAILY PRN 06/24/16 [History] Febuxostat [Uloric] 40 mg PO DAILY 08/30/16 [History] Febuxostat [Uloric] 80 mg PO DAILY 08/30/16 [History] HYDROcodone/Acet 10/325 mg [[place] 10-325 mg] 1 tab PO Q6HR PRN #28 tab 08/30/16 [Rx] Allergies cefepime Allergy (Verified 09/01/16 15:20) Hives Erythromycin Base Allergy (Verified 09/01/16 15:20) Hives morphine Allergy (Verified 09/01/16 15:20) Hives piperacillin [From Zosyn] Allergy (Verified 09/01/16 15:20) Hives propoxyphene [From Darvocet-N] Allergy (Verified 09/01/16 15:20) Hives shellfish derived Allergy (Verified 09/01/16 15:20) Anaphylaxis tazobactam [From Zosyn] Allergy (Verified 09/01/16 15:20) Hives ciprofloxacin [From Cipro] Adverse Reaction (Verified 09/01/16 15:20) Hives levofloxacin [From Levaquin] Adverse Reaction (Verified 09/01/16 15:20) See Comments tendonitis metoclopramide [From Reglan] Adverse Reaction (Verified 09/01/16 15:20) Hives All Systems Reviewed: A 10-system review of systems was performed and is negative for pertinent findings except as documented above in the HPI. Physical Exam - Constitutional Vitals: Temp Pulse Resp BP Pulse Ox 99.3 F 87 16 151/96 98 09/01/16 15:36 09/01/16 15:36 09/01/16 15:36 09/01/16 15:36 09/01/16 15:36 Exam: No obvious line of cellulitis or erythema noted. Vague severe edema with splotchy redness and ecchymosis noted. Serous drainage noted with slight bloody drainage from the incision site along the first metatarsal phalangeal joint. No palpable abscess, no fluctuance, no dehiscence. Bullous lesions noted around the first metatarsal phalangeal joint consistent with fracture blisters. The fracture blisters are serous filled. Slight decreased sensation noted to the great toe of the left foot. No elevated white blood cell count, CRP not significantly elevated , no signs of gas on radiographic exam or displacement. Results - Labs Result Diagrams: 09/01/16 09:36 09/01/16 09:36 Labs: Abnormal lab results MPV 9.3 fL (9.4-12.4) L 09/01/16 09:36 Glucose 112 mg/dL (70-99) H 09/01/16 09:36 Uric Acid 7.6 mg/dL (3.5-7.2) H 09/01/16 09:36 C-Reactive Protein 47 mg/L (Less than 5) H 09/01/16 09:36 All other labs normal. Consult Discharge Plan - Plan Referrals: Keri Garvin CNP [Primary Care Provider] -
[2016-09-01] MEDS: *HR* Heparin 5,000 UNIT/ML VIAL SQ SCH (17:21)
[2016-09-01] MEDS: *HR* HYDROcodone/Acet 10/325 mg TABLET PO PRN (20:34)
[2016-09-01] MEDS: Ketorolac 30 MG/ML VIAL IVP PRN (20:35)
[2016-09-02] MEDS: *HR* HYDROmorphone (PF) 1 MG/ML SYRINGE IVP PRN ×7 (00:33→23:56)
[2016-09-02] MEDS: *HR* HYDROcodone/Acet 10/325 mg TABLET PO PRN ×3 (02:26→18:20)
[2016-09-02 04:25] LABS: Eosinophils # 0.1 K/mcL (0.0-0.6); Hematocrit 39.1 % (37.5-50.1); Hemoglobin 13.5 g/dL (12.9-16.9); Immature Granulocytes % 0.2 % (0-4); Lymphocytes # 1.2 K/mcL (0.6-4.6); Mean Corpuscular HGB Conc 34.5 g/dL (31.6-35.5); Mean Corpuscular Hemoglobin 31.8 pg (28.0-33.3); Mean Corpuscular Volume 92.2 fL (83.0-100.0); Mean Platelet Volume 9.4 fL (9.4-12.4); Monocytes # 0.4 K/mcL (0.0-1.3); Monocytes % 8.6 %; Neutrophils # 2.3 K/mcL (1.6-8.9); Platelet Count 168 K/mcL (140-400); Red Blood Count 4.24 M/mcL (4.19-5.50); Red Cell Distribution Width 13.2 % (11.5-14.5); Segmented Neutrophils % 57.2 %
[2016-09-02 04:47] LABS: BUN/Creatinine Ratio 11 (6-26); Blood Urea Nitrogen 10 mg/dL (8-26); Calcium 8.9 mg/dL (8.6-10.8); Carbon Dioxide 24 mEq/L (19-29); Chloride 106 mEq/L (98-109); Glucose 103 mg/dL (70-99); Osmolality,Calculated 287 (280-300); Potassium 3.7 mEq/L (3.5-4.5); Sodium 139 mEq/L (136-145); eGFR For African Americans > 60 (> 60); eGFR For Non-African Americans > 60 (> 60)
[2016-09-02] MEDS: *HR* Heparin 5,000 UNIT/ML VIAL SQ SCH ×2 (04:57→18:20)
[2016-09-02] MEDS ORDERED: NON-FORMULARY MEDICATION 1 EACH EACH (Febuxostat [Uloric] 80 MG) PO SCH (09:00)
--- NOTE | 2016-09-02 09:06 | Internal Med Progress Note ---
Date of Encounter: 09/02/16 Time of Encounter: 09:00 - Assessment and plan (1) Postoperative wound infection Current Visit: Yes Status: Acute Assessment and plan: Left foot first metatarsophalangeal joint arthroplasty 3 days ago. Presented to the emergency department last night with complaints of increased swelling and redness pain at surgical site. He reports fevers and chills at home. This morning he reports that he feels as if he has the flu. Left foot x-ray from the emergency department last night showed existing arthroplasty in no acute osseous abnormality. There was also nonspecific soft tissue swelling involved in the foot. Patient is being followed by podiatry. They feel most likely that there may not be infection, however may be a gout flare that coincided with the surgery. Patient states the pain is severe and I have increased Dilaudid from 1 mg every 3 hours to 1 mg every 2 hours prn. Ice, elevate Continue to monitor patient and labs Continue gout medication. Continue IV vancomycin Podiatry is on board. 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 He reports abdominal pain that is exacerbated by stress or infection. He has requested an amp of D50 as routine treatment that he has had in the past. Due to reduced intakes of calories and carbohydrates, which may occur during an illness surgery or other stress, increases in aVL A and PBG to be reversed by carbohydrate administration. One amp of D50 Antiemetics as needed Pain control IV fluids (4) Abdominal pain Current Visit: No Status: Acute Assessment and plan: Due to AIP. Plan as above Qualifiers: Abdominal location: generalized Qualified Code(s): R10.84 - Generalized abdominal pain (5) DVT prophylaxis Current Visit: No Status: Acute Assessment and plan: Heparin subcutaneous daily - Time Spent With Patient less than 15 minutes - Subjective Interval history: Patient reports severe pain to postop left great toe and foot. He says that he feels as if he has the flu. He also has requested an amp of D50 for AIP treatment. I did review an up-to-date article for rationale. Patient has gotten off his pain medication schedule due to volume on the unit. I have increased his frequency of Dilaudid 1 mg from 3 hours to every 2 hours as needed. We will continue to monitor the patient. Podiatry is on board monitoring wound. - Constitutional Vitals: Temp Pulse Resp BP Pulse Ox 98.1 F 81 16 160/95 97 09/02/16 06:53 09/02/16 06:53 09/02/16 06:53 09/02/16 06:53 09/02/16 06:53 General appearance: Present: cooperative, mild distress, A&O X 3, pleasant, answers questions appropriately Exam: moderate distress - Head Head exam: Present: normal inspection - Eye Eye exam: Present: normal appearance, conjuntiva pink - ENT ENT exam: Present: mucous membranes moist, normal exam, normal external ear exam - Neck Neck exam general surgery: Present: normal inspection. Absent: lymphadenopathy , tenderness - Respiratory Respiratory exam: Present: CTAB, respiratory distress. Absent: rales, rhonchi, stridor, wheezes - Cardiovascular Cardiovascular exam: Present: RRR, +S1, +S2. Absent: diastolic murmur, systolic murmur - GI/Abdominal GI/Abdominal exam: Present: soft, tenderness. Absent: hepatomegaly - Extremities Exam Extremities exam: Present: normal capillary refill, tenderness, warm, radial pulses palpable and symetrical. Absent: pedal edema - Neurological Exam Neurological exam: Present: alert, oriented X3, no focal deficits, strengths equal and symetr throughout. Absent: facial droop, speech deficit Internal Medicine: Result - Labs CBC & Chem 7: 09/02/16 03:10 09/02/16 03:10 Labs: Short CBC 09/02/16 Range/Units 03:10 WBC 4.1 L (4.3-11.1) K/mcL Hgb 13.5 (12.9-16.9) g/dL Hct 39.1 (37.5-50.1) % Plt Count 168 (140-400) K/mcL Neutrophils # 2.3 (1.6-8.9) K/mcL BMP 09/02/16 03:10 Sodium 139 Potassium 3.7 Chloride 106 Carbon Dioxide 24 BUN 10 Creatinine 0.91 Glucose 103 H Calcium 8.9 Urine 09/01/16 Range/Units 14:33 Urine Color Yellow (Yellow) Urine Clarity Clear (Clear) Urine pH 6.0 (5.0-8.0) pH Units Ur Specific [place] 1.022 (1.010-1.025) Urine Protein Negative (Neg-Trace) mg/dL Urine Glucose (UA) Normal (Normal) mg/dL Consult Discharge Plan - Plan Referrals: Keri Garvin CNP [Primary Care Provider] -
[2016-09-02] MEDS ORDERED: *HR* Dextrose 25% in Water (Syg) 10 ML SYRINGE IVP ONE (09:16)
[2016-09-02] MEDS: Ertapenem 1,000 MG in 0.9 % Sodium Chloride Mini Bag 100 ML IVPB SCH (09:19)
[2016-09-02] MEDS: FEBUXOSTAT 120 MG PO SCH (09:20)
[2016-09-02] MEDS ORDERED: *HR* Dextrose 50 % in Water (Syg) 50 ML SYRINGE IVP ONE (09:30)
[2016-09-02] MEDS: Vancomycin 1,500 MG in D5% in Water 250 ML IVPB SCH (16:36)
[2016-09-03] MEDS: Ketorolac 30 MG/ML VIAL IVP PRN (00:48)
[2016-09-03] MEDS: *HR* HYDROmorphone (PF) 1 MG/ML SYRINGE IVP PRN ×4 (02:59→15:37)
[2016-09-03] MEDS: Vancomycin 1,500 MG in D5% in Water 250 ML IVPB SCH ×2 (02:59→13:45)
[2016-09-03 04:44] LABS: Basophils % 0.9 %; Eosinophils # 0.3 K/mcL (0.0-0.6); Eosinophils % 5.8 %; Hematocrit 39.3 % (37.5-50.1); Hemoglobin 13.6 g/dL (12.9-16.9); Immature Granulocytes % 0.5 % (0-4); Lymphocytes # 1.8 K/mcL (0.6-4.6); Lymphocytes % 41.6 %; Mean Corpuscular HGB Conc 34.6 g/dL (31.6-35.5); Mean Corpuscular Hemoglobin 32.5 pg (28.0-33.3); Mean Platelet Volume 9.6 fL (9.4-12.4); Monocytes # 0.3 K/mcL (0.0-1.3); Monocytes % 7.9 %; Neutrophils # 1.9 K/mcL (1.6-8.9); Platelet Count 183 K/mcL (140-400); Red Blood Count 4.18 M/mcL (4.19-5.50); Red Cell Distribution Width 13.2 % (11.5-14.5); Segmented Neutrophils % 43.3 %
[2016-09-03 04:58] LABS: BUN/Creatinine Ratio 13 (6-26); Blood Urea Nitrogen 12 mg/dL (8-26); Calcium 8.9 mg/dL (8.6-10.8); Carbon Dioxide 26 mEq/L (19-29); Chloride 106 mEq/L (98-109); Glucose 107 mg/dL (70-99); Osmolality,Calculated 290 (280-300); Potassium 4.1 mEq/L (3.5-4.5); Sodium 140 mEq/L (136-145); eGFR For African Americans > 60 (> 60); eGFR For Non-African Americans > 60 (> 60)
[2016-09-03] MEDS: *HR* Heparin 5,000 UNIT/ML VIAL SQ SCH (06:23)
[2016-09-03] MEDS: *HR* HYDROcodone/Acet 10/325 mg TABLET PO PRN ×2 (06:26→12:15)
[2016-09-03] MEDS: FEBUXOSTAT 120 MG PO SCH (09:09)
[2016-09-03] MEDS: Ondansetron 4 MG/2 ML VIAL IVP PRN (09:21)
[2016-09-03] MEDS: Ertapenem 1,000 MG in 0.9 % Sodium Chloride Mini Bag 100 ML IVPB SCH (09:21)
[2016-09-03] MEDS ORDERED: Pantoprazole 40 MG VIAL IVP SCH (10:15)
--- NOTE | 2016-09-03 10:38 | Internal Med Progress Note ---
Date of Encounter: 09/03/16 Time of Encounter: 10:37 - Subjective Interval history: patient does not take indomethacin due to gastritis. he takes uloric and colchicine for acute gout attack. he has his uloric with him since he knows it is non-formulary. - Constitutional Vitals: Temp Pulse Resp BP Pulse Ox 98.6 F 63 14 130/92 95 09/03/16 07:16 09/03/16 07:16 09/03/16 07:16 09/03/16 07:16 09/03/16 07:16 General appearance: Present: cooperative, mild distress, A&O X 3, pleasant, answers questions appropriately Internal Medicine: Result - Labs CBC & Chem 7: 09/03/16 04:17 09/03/16 04:17 Labs: Short CBC 09/03/16 Range/Units 04:17 WBC 4.3 (4.3-11.1) K/mcL Hgb 13.6 (12.9-16.9) g/dL Hct 39.3 (37.5-50.1) % Plt Count 183 (140-400) K/mcL Neutrophils # 1.9 (1.6-8.9) K/mcL BMP 09/03/16 04:17 Sodium 140 Potassium 4.1 Chloride 106 Carbon Dioxide 26 BUN 12 Creatinine 0.96 Glucose 107 H Calcium 8.9 Consult Discharge Plan - Plan Referrals: Zbigniew Caldwell DPM [Partnered Physician] - 09/06/16 9:15 am Keri Garvin CNP [Primary Care Provider] -
[2016-09-03] MEDS ORDERED: Colchicine 0.6 MG TABLET PO ONE (10:41)
[2016-09-03] MEDS ORDERED: Patient Taking Own Medication 1 EACH PO SCH (10:45)
[2016-09-03 11:00] VITALS: BP 131/80
[2016-09-03] MEDS ORDERED: Indomethacin 25 MG CAPSULE PO SCH (12:00)
--- NOTE | 2016-09-03 14:11 | Podiatry Progress Note ---
Date of Encounter: 09/03/16 Time of Encounter: 12:30 - Assessment and Plan (1) Cellulitis of second toe of right foot Status: Acute Dressing removed, assessment complete Slight maceration noted to surgical line, appears to be cause of lost sutures. distal 3 sutures absent. No appearance of surgical site dehiscence. Mild warmth, edema and erythema remain to toe #1 surrounding MTP joint. Minimal sensation to toe, movement intact, cap refill < 3 seconds No drainage to incision line Patient may go home from podiatry stand point Continue medications for acute gout attack- this is likely cause of acute pain and edema related to absence of white count and fever Wound cultures negative Continue oral antibiotics per internal med Patient has appointment in clinic on Friday, follow up sooner if needed Call with any fevers, chills, n/v or flu like symptoms Cleansed with alcohol, applied betadine to incision line to dry maceration, 4x4 , kerlex and coban applied for compression of edema to reduce swelling Protective weight bearing Keep elevated above level of heart as much as possible. Wear post op shoe for ambulation (2) Postoperative fever Status: Acute (3) Postoperative wound infection Status: Acute Qualifiers: Encounter type: initial encounter Qualified Code(s): T81.4XXA - Infection following a procedure, initial encounter Subjective Interval history: Soft tissue swelling remains surrounding surgical incision and MP joint. It is decreased from initial assessment. There are no apparent blisters remaining. Patient states pain has decreased and now reports as 4/10. Patient states great toe continues to be numb but this is likely due to edema. Sensation should return once this has subsided. Patient states he noted that 3 sutures came out while he was in the bathroom today. Patient states he chilled some overnight but has been documented afebrile >24 hours. Patient states he is continuing to take medication for gout as prescribed. Patient denies any calf pain. Objective - Vital Signs Vital Signs: Vital Signs Temp Pulse Resp BP Pulse Ox 09/03/16 10:58 98.6 F 66 14 131/80 95 09/03/16 07:16 98.6 F 63 14 130/92 95 09/02/16 23:51 98.7 F 86 16 150/95 95 09/02/16 18:32 98.5 F 88 16 137/88 96 09/02/16 16:14 97.6 F 78 15 160/92 96 Intake and Output 09/02/16 09/03/16 09/03/16 23:59 07:59 15:59 Intake Total 250 / 250 250 / 250 Balance 250 / 250 250 / 250 Intake: IV Fluids 250 / 250 250 / 250 Vancocin 1,500 MG In 250 / 250 250 / 250 Dextrose 5% 250 ML @ 167 mls/hr IVPB Q12H MAURIZIO Rx#: [id number] Other: # Voids 2 1 # Bowel Movements 3 - Exam Exam: General Examination: CONSTITUTIONAL: Alert, oriented, in no acute distress, non-toxic. EXTREMITIES: CFT 3 seconds all toes. Edema +1 and pedal pulses palpable. SKIN: Skin with decreased turgor, decreased subcutaneous tissue, skin thin and shiny with trophic changes associated with comorbidities as described in history.. NEUROLOGIC: Grossly intact epicritic and vibratory sensation from toes to tibia, evidenced with use of monofilament 5.07 and tuning fork at 128 CPS. Patient complains of paresthesias and dysesthesias. There is no clinical evidence of loss of protective sensation. Surgical incision clean Slight maceration to incision line noted, distal 3 sutures are absent but incision line remains intact Erythema remains to area directly surrounding MT head #1 of foot Moderate edema and warmth continues Movement intact Minimal sensation to toe #1, full sensation to all other areas of foot Cap refill <3 seconds Warm to touch No drainage or odor from incision line. - Lab Result Diagrams: 09/03/16 04:17 09/03/16 04:17 Labs: Abnormal lab results RBC 4.18 M/mcL (4.19-5.50) L 09/03/16 04:17 Glucose 107 mg/dL (70-99) H 09/03/16 04:17 Uric Acid 7.6 mg/dL (3.5-7.2) H 09/01/16 09:36 C-Reactive Protein 47 mg/L (Less than 5) H 09/01/16 09:36 Microbiology, Last 48 Hours 09/01/16 11:35 Wound Culture - Final Left Foot No growth. Consult Discharge Plan - Plan Additional Instructions: please follow up in the podiatry clinic on Friday Call with any fevers, chills, n/v or flu like symptoms follow up with your primary care doctor for gout attack in 1 week. take colchicine 0.6 mg daily for 7 days until you see your primary care doctor. Cleansed with alcohol, applied betadine to incision line to dry maceration, 4x4 , kerlex and coban applied for compression of edema to reduce swelling Protective weight bearing Keep elevated above level of heart as much as possible. Wear post op shoe for ambulation Referrals: Zbigniew Caldwell DPM [Partnered Physician] - 09/06/16 9:15 am Prescriptions: Colchicine [Colcrys] 0.6 mg PO DAILY #10 tablet Doxycycline 100 mg PO BID #14 capsule Ondansetron ODT [Zofran ODT] 4 mg SL Q6HR #20 tab.rapdis
--- NOTE | 2016-09-03 15:43 | Discharge Summary ---
Date of Encounter: 09/03/16 Time of Encounter: 15:43 - Discharge Diagnosis (1) Postoperative fever Priority: Primary Status: Acute (2) Cellulitis of second toe of right foot Priority: Primary Status: Acute (3) Acute gout Priority: Primary Status: Acute Qualifiers: Gout site: foot Gout etiology: idiopathic Laterality: right Qualified Code(s): M10.071 - Idiopathic gout, right ankle and foot - Discharge Medications Prescriptions: Ondansetron ODT [Zofran ODT] 4 mg SL Q6HR #20 tab.rapdis Colchicine [Colcrys] 0.6 mg PO DAILY #10 tablet Doxycycline 100 mg PO BID #14 capsule Home Medications: Citalopram [CeleXA] 20 mg PO DAILY 06/29/15 [History] Febuxostat [Uloric] 40 mg PO DAILY 08/30/16 [History] Febuxostat [Uloric] 80 mg PO DAILY 08/30/16 [History] HYDROcodone/Acet 10/325 mg [[place] 10-325 mg] 1 tab PO Q6HR PRN #28 tab 08/30/16 [Rx] Colchicine [Colcrys] 0.6 mg PO DAILY #10 tablet 09/03/16 [Rx] Doxycycline 100 mg PO BID #14 capsule 09/03/16 [Rx] Ondansetron ODT [Zofran ODT] 4 mg SL Q6HR #20 tab.rapdis 09/03/16 [Rx] Allergies/Adverse Reactions: Allergies cefepime Allergy (Verified 09/01/16 15:20) Hives Erythromycin Base Allergy (Verified 09/01/16 15:20) Hives morphine Allergy (Verified 09/01/16 15:20) Hives piperacillin [From Zosyn] Allergy (Verified 09/01/16 15:20) Hives propoxyphene [From Darvocet-N] Allergy (Verified 09/01/16 15:20) Hives shellfish derived Allergy (Verified 09/01/16 15:20) Anaphylaxis tazobactam [From Zosyn] Allergy (Verified 09/01/16 15:20) Hives ciprofloxacin [From Cipro] Adverse Reaction (Verified 09/01/16 15:20) Hives levofloxacin [From Levaquin] Adverse Reaction (Verified 09/01/16 15:20) See Comments tendonitis metoclopramide [From Reglan] Adverse Reaction (Verified 09/01/16 15:20) Hives Date of admission: 09/01/16 11:29 Primary care physician: Keri Garvin, - Patient Status Disposition: Home, Self-Care Condition: Good Functional capacity at discharge: independent ambulation Overall status at discharge: patient is progressing back to baseline - Discharge Instructions Follow Up With: Zbigniew Caldwell DPM [Partnered Physician] - 09/06/16 9:15 am Additional Instructions: please follow up in the podiatry clinic on Friday Call with any fevers, chills, n/v or flu like symptoms follow up with your primary care doctor for gout attack in 1 week. take colchicine 0.6 mg daily for 7 days until you see your primary care doctor. Cleansed with alcohol, applied betadine to incision line to dry maceration, 4x4 , kerlex and coban applied for compression of edema to reduce swelling Protective weight bearing Keep elevated above level of heart as much as possible. Wear post op shoe for ambulation - Diet and Activity Activity: resume usual activities as tolerated Diet: low fat, low cholesterol, low salt diet Interval History: patient does not take indomethacin due to gastritis. he takes colchicine for acute gout attack. he has his uloric with him since he knows it is non- formulary. Hospital course: Mr. Jordan is a 46 year old male with past medical history of acute intermittent porphyria, and gout who underwent left foot first metatarsophalangeal joint arthroplasty 2 days before presentation. He presented to our ED with increased swelling with associated pain and redness at the surgical site along with fevers and chills at home. Patient admitted with diagnosis of cellulitis of second toe right foot, and acute gout attack. He was started on empiric antibiotics, IV fluids and IV Toradol. His symptoms slowly improved and blood and wound cultures came back negative. Patient remained afebrile and WBC was normal during this hospitalization. He was started on colchicine for acute gout attack. Patient was feeling better and was eager to go home the day of discharge. PLAN: Continue oral doxycycline for 7 more days. Follow up in the podiatry clinic as scheduled. Continue colchicine 0.6 mg daily for 7 more days. Follow- up with primary care physician for acute gout attack. - Time Spent with Patient Total time spent providing and/or coordinating discharge services: - Constitutional Vitals: Temp Pulse Resp BP Pulse Ox 98.6 F 66 14 131/80 95 09/03/16 10:58 09/03/16 10:58 09/03/16 10:58 09/03/16 10:58 09/03/16 10:58 General appearance: Present: cooperative, mild distress, A&O X 3, pleasant, answers questions appropriately
[2016-09-03] MEDS ORDERED: Aminoglycoside Consult 1 EACH MC ONE (16:29)
[2016-09-04] MEDS ORDERED: (Febuxostat [Uloric] 80 MG) PO SCH (09:00)
[2016-09-04] MEDS ORDERED: Colchicine 0.6 MG TABLET PO SCH (12:00)
== END 2016-09-03 16:30 | disposition home or self-care (01) ==
LOC: EMEROO 08:23 → 3NENU 08:23 → SUATTDRO 11:29 → 3NENU 11:47
PROVIDERS: ADMIT Internal Medicine; ATTEND Internal Medicine

== ENCOUNTER 2017-02-11 16:49 | Observation (INO) ==
--- NOTE | 2017-02-11 17:07 | Emergency Department Note ---
Disposition Clinical Impression: Cellulitis of foot Disposition: Still a Patient Condition: Good Referrals: Keri De Santiago MD [Primary Care Provider] - Forms: ED Satisfaction Letter Extremity Problem HPI - General Chief complaint: ED Extremity Problem,Nontraumatic Stated complaint: Right foot inflammation Time Seen by Provider: 02/11/17 16:56 Source: patient Mode of arrival: ambulatory Limitations: no limitations Nursing Notes Reviewed: Yes Vital Signs Reviewed: Yes - History of Present Illness HPI Narrative: 46-year-old male whose had pain and swelling in his right second toe with marked increase in redness and he's got a streak of red going up his foot. Concern for infection. Patient also has a hip replacement on the right that he is concerned may become seated. Pt Subjective Complaint: extremity pain, extremity swelling Onset (ago): day(s) Consistency: constant Injury Location: right, lower extremity Pain Scale: 6 Quality: stabbing, aching Radiation: none Improves with: nothing Worsens with: weight bearing, walking Associated symptoms: Reports: fever, arthralgias, rash - Related Data Home Medications Medication Instructions Recorded Confirmed Citalopram [CeleXA] 20 mg PO DAILY 06/29/15 09/01/16 Febuxostat [Uloric] 40 mg PO DAILY 08/30/16 09/01/16 Febuxostat [Uloric] 80 mg PO DAILY 08/30/16 09/01/16 Previous Rx's Medication Instructions Recorded HYDROcodone/Acet 10/325 mg [[place] 1 tab PO Q6HR PRN #28 tab 08/30/16 10-325 mg] Colchicine [Colcrys] 0.6 mg PO DAILY #10 tablet 09/03/16 Doxycycline 100 mg PO BID #14 capsule 09/03/16 Ondansetron ODT [Zofran ODT] 4 mg SL Q6HR #20 tab.rapdis 09/03/16 Allergies Allergy/AdvReac Type Severity Reaction Status Date / Time cefepime Allergy Hives Verified 02/11/17 16:56 Erythromycin Base Allergy Hives Verified 02/11/17 16:56 morphine Allergy Hives Verified 02/11/17 16:56 piperacillin [From Zosyn] Allergy Hives Verified 02/11/17 16:56 propoxyphene Allergy Hives Verified 02/11/17 16:56 [From Darvocet-N] shellfish derived Allergy Anaphylaxis Verified 02/11/17 16:56 tazobactam [From Zosyn] Allergy Hives Verified 02/11/17 16:56 ciprofloxacin [From Cipro] AdvReac Hives Verified 02/11/17 16:56 metoclopramide [From Reglan] AdvReac Hives Verified 02/11/17 16:56 All systems ED: reviewed and negative except as stated. Constitutional: Denies: fever, chills, weakness, weight change Eyes: Denies: eye pain, eye discharge, vision change ENT ED: Denies: ear pain, throat pain, dental pain, hearing loss, epistaxis, congestion, dysphagia Cardiovascular: Denies: chest pain, palpitations, dyspnea on exertion, edema, syncope Respiratory: Denies: cough, dyspnea, wheezes, hemoptysis, stridor Gastrointestinal: Denies: abdominal pain, nausea, vomiting, diarrhea, constipation, hematemesis, melena, hematochezia Genitourinary: Denies: urgency, dysuria, frequency, hematuria Musculoskeletal: Reports: arthralgia. Denies: back pain, neck pain, myalgia Integumentary: Denies: rash, abrasion, lesions Neurological: Denies: headache, weakness, numbness, paresthesias, confusion, abnormal gait, vertigo Psychiatric: Denies: anxiety, depression, suicidal thoughts, homicidal thoughts , auditory hallucinations, visual hallucinations Endocrine: Denies: fatigue Hematological/Lymphatic: Denies: easy bleeding, easy bruising Allergic/Immunologic: Denies: facial swelling, urticaria Past Medical History - Past Medical History Medical history: Reports: kidney stones, SVT, other Surgical history: Reports: appendectomy, cholecystectomy, hip replacement, other Psychiatric history: Reports: no psych history - Social History Smoking Status: Never smoker Smokeless Tobacco Status: No Alcohol use: Reports: none Drug use: Reports: none Physical Exam - General Limitations: no limitations General appearance: alert, in no apparent distress - Head Head exam: atraumatic, normocephalic, normal inspection - Eye Eye exam: Present: normal appearance, PERRL, EOMI - ENT ENT exam: normal exam, normal oropharynx, mucous membranes moist - Neck Neck exam: Present: normal inspection, full ROM, trachea midline - Chest Chest inspection: Present: normal inspection, symmetric chest wall rise - Respiratory Respiratory exam: Present: normal lung sounds bilaterally - Cardiovascular Cardiovascular exam: Present: regular rate, normal rhythm, normal heart sounds - Abdominal Exam Abdominal exam: Present: soft, Non-Tender. Absent: tenderness, distention, guarding, rebound, rigidity - Expanded Lower Extremity Exam Foot/toe exam: Present: swelling, erythema (Second digit), other (Some evidence of ascending lymphangitis) Course Vital Signs Temperature 99.4 F 02/11/17 16:56 Pulse Rate 91 02/11/17 16:56 Respiratory Rate 18 02/11/17 16:56 Blood Pressure 159/100 02/11/17 16:56 O2 Sat by Pulse Oximetry 99 02/11/17 16:56 Temperature 99.4 F 02/11/17 16:56 Pulse Rate 91 02/11/17 16:56 Respiratory Rate 18 02/11/17 16:56 Blood Pressure 159/100 02/11/17 16:56 O2 Sat by Pulse Oximetry 99 02/11/17 16:56 Oxygen Delivery Oxygen Delivery Room Air S.B.ANeyl. - S.B.A.R. Recommendation: Recommendation based on pending studies, treatments, or consults S.B.A.RChelsie Report Given to: Dr. Dave Alcantara Repor Time: 19:00
[2017-02-11] MEDS ORDERED: *HR* HYDROmorphone (PF) 1 MG/ML SYRINGE IM ONE (17:20)
[2017-02-11] MEDS ORDERED: Ondansetron ODT 4 MG TAB.RAPDIS SL ONE (17:20)
[2017-02-11] MEDS ORDERED: 0.9 % Sodium Chloride 1,000 ML IVC ONE (18:21)
--- NOTE | 2017-02-11 19:21 | Emergency Department Note ---
Disposition Clinical Impression: Cellulitis of foot Disposition: Admitted As Inpatient Condition: Fair Time of Disposition: 00:11 Extremity Problem HPI - General Chief complaint: ED Extremity Problem,Nontraumatic Stated complaint: Right foot inflammation Time Seen by Provider: 02/11/17 16:56 Source: patient Mode of arrival: ambulatory Limitations: no limitations Nursing Notes Reviewed: Yes Vital Signs Reviewed: Yes - History of Present Illness HPI Narrative: Mr. Jordan, a 38-year-old male, presents from the oncology clinic with his PA to emergency department with concerns of right #2 toe swelling, erythema as well as the dorsum of his right foot swollen with erythema. His pain is described as 8/10 and burning/tearing sensation. He denies any trauma or injury to the toe. He has not had any recent antibiotics. Patient does have a history of gout however his symptoms today are different in that the swelling and erythema are extending proximal to the MTP joint. Additionally, patient has had a fever of 101 at home and decreased appetite. Patient is concerned for an ascending infection. 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 Follows with Dr. agustin and podiatry. Past medical history is notable for acute intermittent porphyria. Foot X-Ray 02/11/17 17:03 IMPRESSION: Soft tissue swelling without acute or focal bony abnormality. If osteomyelitis is a clinical concern, an MRI would be a helpful study. D/ / Jessie Chisholm Cha, MD / Jessie Chisholm Cha, MD Interpreting Provider: Jessie Chisholm Cha, MD Hip X-Ray 02/11/17 21:13 IMPRESSION: Status post total right hip arthroplasty, in gross anatomic alignment, without evidence of hardware complication, acute fracture or dislocation. Cortical thickening at the proximal right femoral diaphysis, likely related to postoperative changes or healing of old fracture. D/ / Jaguar Lee MD / Jaguar Lee MD Interpreting Provider: Jaguar Lee MD Consistency: constant Injury Location: right, lower extremity Pain Scale: 8 Quality: stabbing, aching Improves with: nothing Worsens with: weight bearing, walking Associated symptoms: Reports: fever, arthralgias, rash - Related Data Home Medications Medication Instructions Recorded Confirmed Citalopram [CeleXA] 20 mg PO DAILY 06/29/15 09/01/16 Febuxostat [Uloric] 40 mg PO DAILY 08/30/16 09/01/16 Febuxostat [Uloric] 80 mg PO DAILY 08/30/16 09/01/16 Previous Rx's Medication Instructions Recorded HYDROcodone/Acet 10/325 mg [[place] 1 tab PO Q6HR PRN #28 tab 08/30/16 10-325 mg] Colchicine [Colcrys] 0.6 mg PO DAILY #10 tablet 09/03/16 Doxycycline 100 mg PO BID #14 capsule 09/03/16 Ondansetron ODT [Zofran ODT] 4 mg SL Q6HR #20 tab.rapdis 09/03/16 Oxycodone HCl/Acetaminophen 1 each PO Q4HR PRN #12 tablet 02/11/17 [Percocet 5-325 mg Tablet] Sulfamethoxazole/Trimeth DS 1 each PO BID #14 tablet 02/11/17 [Bactrim DS] Allergies Allergy/AdvReac Type Severity Reaction Status Date / Time cefepime Allergy Hives Verified 02/11/17 16:56 Erythromycin Base Allergy Hives Verified 02/11/17 16:56 morphine Allergy Hives Verified 02/11/17 16:56 piperacillin [From Zosyn] Allergy Hives Verified 02/11/17 16:56 propoxyphene Allergy Hives Verified 02/11/17 16:56 [From Darvocet-N] shellfish derived Allergy Anaphylaxis Verified 02/11/17 16:56 tazobactam [From Zosyn] Allergy Hives Verified 02/11/17 16:56 ciprofloxacin [From Cipro] AdvReac Hives Verified 02/11/17 16:56 metoclopramide [From Reglan] AdvReac Hives Verified 02/11/17 16:56 All systems ED: reviewed and negative except as stated. Constitutional: Reports: fever. Denies: chills, weakness, weight change Eyes: Denies: eye pain, eye discharge, vision change ENT ED: Denies: ear pain, throat pain, dental pain, hearing loss, epistaxis, congestion, dysphagia Cardiovascular: Denies: chest pain, palpitations, dyspnea on exertion, edema, syncope Respiratory: Denies: cough, dyspnea, wheezes, hemoptysis, stridor Gastrointestinal: Denies: abdominal pain, nausea, vomiting, diarrhea, constipation, hematemesis, melena, hematochezia Genitourinary: Denies: urgency, dysuria, frequency, hematuria Musculoskeletal: Reports: arthralgia. Denies: back pain, neck pain, myalgia Integumentary: Denies: rash, abrasion, lesions Neurological: Denies: headache, weakness, numbness, paresthesias, confusion, abnormal gait, vertigo Psychiatric: Denies: anxiety, depression, suicidal thoughts, homicidal thoughts , auditory hallucinations, visual hallucinations Endocrine: Denies: fatigue Hematological/Lymphatic: Denies: easy bleeding, easy bruising Allergic/Immunologic: Denies: facial swelling, urticaria Past Medical History - Past Medical History Medical history: Reports: kidney stones, SVT, other Surgical history: Reports: appendectomy, cholecystectomy, hip replacement, other Psychiatric history: Reports: no psych history - Social History Smoking Status: Never smoker Smokeless Tobacco Status: No Alcohol use: Reports: none Drug use: Reports: none Physical Exam Vital Signs Reviewed General: Patient is alert, oriented, and in no acute distress. HEENT: No facial asymmetry. Head is normocephalic and atraumatic. PERRLA, EOMI. Nasal turbinates moist and pink. Posterior pharynx without exudates or cobblestoning. Trachea midline, no palpable thyroid nodules, no thyromegaly. Cardiovascular: Heart regular rate and rhythm without clicks, rubs, gallops, or murmurs. No JVD. PMI nondisplaced. BL DP and PT pulses equal. Respiratory: Symmetric chest rise with good respiratory effort. Bilateral breath sounds are clear without wheezing, crackles, or rhonchi. Abdomen: Bowel sounds present normoactive x-4 quadrants. Abdomen is soft, nondistended, and nontender. No organomegaly noted. Musculoskeletal: Muscle strength 5/5 and symmetric bilaterally in lower extremities. Skin: Right #2 toe swollen and erythematous with mild erythema extending over the swollen dorsum of his foot, tender throughout all swollen areas. Psych: Patient's affect is appropriate for situation. - General Limitations: no limitations General appearance: alert, in no apparent distress Course Course Narrative: Patient presents with what initially appears to be a gout flare however he has been on culture seen for the past week as he was suspecting the same. His symptoms have not improved and had that have worsened. Additionally, he has a addition of a periodic low-grade fever with MAXIMUM TEMPERATURE pain in the febrile range of 101. Patient had an appointment with his executive assistant however, because of his fever, they recommended he come to the emergency department for more rapid evaluation. Has lab work has returned-no leukocytosis, no elevated sedimentation rate, unremarkable electrolytes, normal renal function. X-ray of the patient's right foot and right hip are unremarkable. He receives a single 1.5 g dose of vancomycin in the emergency department. Initial plan was to discharge the patient home with strict return precautions and close follow-up however, attempts to ambulate him which she was unable to do so despite IV analgesia on board. He is agreeable to admission for continued IV antibiotics and pain control. I discussed the patient with the hospitalist, Dr. Alvarado, who agrees to accept the patient. Vital Signs Temperature 99.4 F 02/11/17 16:56 Pulse Rate 91 02/11/17 16:56 Respiratory Rate 18 02/11/17 16:56 Blood Pressure 159/100 02/11/17 16:56 O2 Sat by Pulse Oximetry 99 02/11/17 16:56 Temperature 99.2 F 02/11/17 18:58 Pulse Rate 82 02/11/17 20:39 Respiratory Rate 16 02/11/17 23:39 Blood Pressure 143/89 02/11/17 23:39 O2 Sat by Pulse Oximetry 97 02/11/17 20:39 Oxygen Delivery Oxygen Delivery Room Air Extremity Problem, Nontraumati - Lab Data Result diagrams: 02/11/17 19:05 02/11/17 19:05 Lab Results 02/11/17 02/11/17 02/11/17 Range/Units 19:05 19:05 19:05 WBC 8.9 (4.3-11.1) K/mcL RBC 4.50 (4.19-5.50) M/mcL Hgb 14.9 (12.9-16.9) g/dL Hct 42.4 (37.5-50.1) % MCV 94.2 (83.0-100.0) fL MCH 33.1 (28.0-33.3) pg MCHC 35.1 (31.6-35.5) g/dL RDW 13.5 (11.5-14.5) % Plt Count 184 (140-400) K/mcL MPV 9.3 L (9.4-12.4) fL Immature Gran % 0.3 (0-4) % Seg Neutrophils % 58.9 % Lymphocytes % 31.2 % Monocytes % 7.3 % Eosinophils % 1.6 % Basophils % 0.7 % Neutrophils # 5.2 (1.6-8.9) K/mcL Lymphocytes # 2.8 (0.6-4.6) K/mcL Monocytes # 0.7 (0.0-1.3) K/mcL Eosinophils # 0.1 (0.0-0.6) K/mcL Basophils # 0.1 (0.0-0.2) K/mcL ESR 8 (0-10) mm/hr Sodium 142 (136-145) mEq/L Potassium 4.0 (3.5-4.5) mEq/L Chloride 108 (98-109) mEq/L Carbon Dioxide 24 (19-29) mEq/L BUN 12 (8-26) mg/dL Creatinine 1.15 (0.72-1.25) mg/dL Est GFR ( Amer) > 60 (> 60) Est GFR (Non-Af Amer) > 60 (> 60) BUN/Creatinine Ratio 10 (6-26) Glucose 85 (70-99) mg/dL Calculated Osmolality 293 (280-300) Calcium 9.2 (8.6-10.8) mg/dL Attestation Statement - Attestation Attestation: I, Tera Acosta MD, personally evaluated this patient and discussed their management with the resident physician. I reviewed the resident's note and agree with the documented findings, medical decision making, and plan of care. This patient was signed out at shift change from Dr. Carrillo. Please refer to his note for complete details of the history and physical examination. Patient is a 46-year-old male who presents to the emergency department complaining of pain and swelling and redness of the right second toe which started yesterday morning. He denies any injury. He does have a history of similar episode in the past. Pain and redness and swelling is gotten progressively worse and he developed a fever up to 101. He developed increased swelling of the foot with redness streaking up the top of the foot to the ankle. He complains of pain in the ankle radiating up into the right lower leg. He also complains of pain in the right hip. He has a history of a right hip prosthesis. On examination patient is a well-developed well-nourished well-appearing male in no acute distress. He is alert and oriented 3. There is no cyanosis or diaphoresis. Breath sounds are clear and equal bilaterally. Heart regular rate and rhythm. There is marked erythema and swelling and tenderness of the distal right second toe with swelling of the right foot and erythema and warmth to touch over the dorsum of the right foot. Range of motion of the foot and toe is limited secondary to pain. No open wounds. X-ray shows soft tissue swelling with no acute osseous abnormality. Labs reviewed. The hospitalist, Dr. Alvarado, was consulted and accepted admission of the patient.
[2017-02-11 19:24] LABS: Basophils # 0.1 K/mcL (0.0-0.2); Basophils % 0.7 %; Eosinophils # 0.1 K/mcL (0.0-0.6); Eosinophils % 1.6 %; Hematocrit 42.4 % (37.5-50.1); Hemoglobin 14.9 g/dL (12.9-16.9); Immature Granulocytes % 0.3 % (0-4); Lymphocytes # 2.8 K/mcL (0.6-4.6); Lymphocytes % 31.2 %; Mean Corpuscular HGB Conc 35.1 g/dL (31.6-35.5); Mean Corpuscular Hemoglobin 33.1 pg (28.0-33.3); Mean Corpuscular Volume 94.2 fL (83.0-100.0); Mean Platelet Volume 9.3 fL (9.4-12.4); Monocytes # 0.7 K/mcL (0.0-1.3); Monocytes % 7.3 %; Neutrophils # 5.2 K/mcL (1.6-8.9); Platelet Count 184 K/mcL (140-400); Red Cell Distribution Width 13.5 % (11.5-14.5); Segmented Neutrophils % 58.9 %
[2017-02-11] MEDS ORDERED: Vancomycin 1,500 MG in D5% in Water 250 ML IVPB ONE (19:36)
[2017-02-11] MEDS ORDERED: *HR* HYDROmorphone (PF) 1 MG/ML SYRINGE IVP ONE (19:45)
[2017-02-11] MEDS ORDERED: Ondansetron 4 MG/2 ML VIAL IVP ONE (19:45)
[2017-02-11 19:59] LABS: BUN/Creatinine Ratio 10 (6-26); Blood Urea Nitrogen 12 mg/dL (8-26); Calcium 9.2 mg/dL (8.6-10.8); Carbon Dioxide 24 mEq/L (19-29); Chloride 108 mEq/L (98-109); Glucose 85 mg/dL (70-99); Osmolality,Calculated 293 (280-300); Sodium 142 mEq/L (136-145); eGFR For African Americans > 60 (> 60); eGFR For Non-African Americans > 60 (> 60)
[2017-02-11] MEDS ORDERED: *HR* FentaNYL (PF) 100 MCG/2 ML VIAL IVP ONE ×2 (21:39→22:52)
--- NOTE | 2017-02-11 22:40 | Internal Med History&Physical ---
Date of Encounter: 02/11/17 Time of Encounter: 22:39 Assessment and Plan (1) Cellulitis of second toe of right foot Current visit: Yes Status: Acute Patients with a history of hardware implanted in the right hip from avascular necrosis now has cellulitis on the same side, due to concern for the possibility of bacteremia with seeding of the implant blood cultures have been drawn with empiric use of IV antibiotics pending microbiology results, IV Vancomycin to cover for MRSA and Unasyn for better strep coverage(patient reports that he gets hives with the penicillins but Benadryl is able to control it, no anaphylactic reaction has been associated with this), continue pain management, foot elevation, should these conservative measures fail we will get podiatry involved (2) AIP (acute intermittent porphyria) Current visit: Yes Status: Chronic Stable, outpatient follow-up (3) Depression Current visit: Yes Status: Chronic Continue home medication Qualifiers: Depression Type: major depressive disorder Major depression recurrence: recurrent Active/Remission status: in partial remission Qualified Code(s): F33.41 - Major depressive disorder, recurrent, in partial remission Internal Medicine - H&P: HPI Chief complaint: toe pain Admitted From: Emergency Dept Plans for Post Hospital Care: Home History of present illness: Mr. Jordan is a 46 year old male with a history of acute intermittent porphyria and prior cellulitis of the right 2nd toe who comes in with toe pain. He reports that he was in his usual state of health until 48 hours prior to presentation when he began experiencing throbbing/achy/stabbing pain in the right 2nd toe associated with swelling and redness. There is constant throbbing pain of 10/10 in severity with interspersed burning/stabbing periods, the pain radiates proximally to the foot. In the spate of a few hours the toe swelling spread proximally to include the dorsum of the foot associated with inability to ambulate on the foot and pain with ambulation and movement. He reports associated fever of 101 that began today with intermittent chills, he also had aches and pains, general malaise, loss of appetite and nausea with no vomiting. He denies toe trauma. He initially thought that this was an acute gout flare so he took colchicine yesterday and today with no improvement in his symptoms. 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 He denies change in urinary habits but reports loose stools after using colchicine. 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 Past Med Surg Social Fam HX - Past Medical History Medical history: kidney stones, SVT, other Psychiatric history: no psych history - Past Surgical History Surgical History: appendectomy, cholecystectomy, hip replacement, other - Social History Smoking Status: Never smoker Smokeless Tobacco Status: No Alcohol use: none Drug use: none - Family History Mother Adopted: No Family Member Ethnicity: Non- Living Status: Still Living Hx Family Cardiac Disorders: Yes (htn) Hx Family Respiratory Disorders: No Hx Family Cancer: No Hx Family GI Disorders: No Hx Family Endocrine Disorder: Yes (hypothyroid) Hx Family Neuromuscular Disorders: No Hx Family Neurologic Disorders: No Hx Family HEENT Disorders: No Hx Family Autoimmune Disorders: No Father Family Member Ethnicity: Non- Living Status: Still Living Hx Family Cardiac Disorders: Yes (cardiac stent, htn) Hx Family Respiratory Disorders: Yes (sleep apnea) Hx Family Cancer: No Hx Family GI Disorders: No Hx Family Endocrine Disorder: Yes (DM type 2 insulin dependent) Hx Family Neuromuscular Disorders: No Hx Family Neurologic Disorders: No Hx Family HEENT Disorders: No Hx Family Autoimmune Disorders: No Internal Medicine - H&P: Meds Citalopram [CeleXA] 20 mg PO DAILY 06/29/15 [History] Febuxostat [Uloric] 40 mg PO DAILY 08/30/16 [History] Febuxostat [Uloric] 80 mg PO DAILY 08/30/16 [History] HYDROcodone/Acet 10/325 mg [Harold 10-325 mg] 1 tab PO Q6HR PRN #28 tab 08/30/16 [Rx] Colchicine [Colcrys] 0.6 mg PO DAILY #10 tablet 09/03/16 [Rx] Doxycycline 100 mg PO BID #14 capsule 09/03/16 [Rx] Ondansetron ODT [Zofran ODT] 4 mg SL Q6HR #20 tab.rapdis 09/03/16 [Rx] Oxycodone HCl/Acetaminophen [Percocet 5-325 mg Tablet] 1 each PO Q4HR PRN #12 tablet 02/11/17 [Rx] Sulfamethoxazole/Trimeth DS [Bactrim DS] 1 each PO BID #14 tablet 02/11/17 [Rx] 3 Allergy/AdvReac Type Severity Reaction Status Date / Time cefepime Allergy Hives Verified 02/11/17 16:56 Erythromycin Base Allergy Hives Verified 02/11/17 16:56 morphine Allergy Hives Verified 02/11/17 16:56 piperacillin [From Zosyn] Allergy Hives Verified 02/11/17 16:56 propoxyphene Allergy Hives Verified 02/11/17 16:56 [From Darvocet-N] shellfish derived Allergy Anaphylaxis Verified 02/11/17 16:56 tazobactam [From Zosyn] Allergy Hives Verified 02/11/17 16:56 ciprofloxacin [From Cipro] AdvReac Hives Verified 02/11/17 16:56 metoclopramide [From Reglan] AdvReac Hives Verified 02/11/17 16:56 All Systems PM: A 10-system review of systems was performed and is negative for pertinent findings except as documented above in the HPI. - Constitutional Vitals: Temp Pulse Resp BP Pulse Ox 99.2 F 82 16 142/99 97 02/11/17 18:58 02/11/17 20:39 02/11/17 20:39 02/11/17 20:39 02/11/17 20:39 GENERAL: Adult male, lying in bed, Alert, not in obvious pain or distress HEENT: NC/AT, EOMI, PERRLA, anicteric sclera, normal conjunctiva, supple, clear nares, moist mucous membranes with clear pharynx, RESP: Lungs are clear to auscultation bilaterally, with good AE, no crackles or wheeze CARDIO: Normal heart sounds with RRR, no murmurs, no JVD, no ankle edema GI: Soft, full, no tenderness, no organomegaly felt, normal bowel sounds heard MUSCULOSKELETAL: Grossly normal movements bilaterally, warm tender distal leg to right 2nd toe with red distal digit, swollen dorsum of foot, tender to movement, right groin tenderness NEUROLOGIC: CN 2-12 intact grossly. No gross motor/sensory deficit appreciated, PSYCHIATRY: AAO x 3. Mood is fair SKIN: inflamed tip of right 2nd toe, left medial foot surgical scar Internal Med - H&P Results - Labs CBC & Chem 7: 02/11/17 19:05 02/11/17 19:05 Labs: Short CBC 02/11/17 Range/Units 19:05 WBC 8.9 (4.3-11.1) K/mcL Hgb 14.9 (12.9-16.9) g/dL Hct 42.4 (37.5-50.1) % Plt Count 184 (140-400) K/mcL Neutrophils # 5.2 (1.6-8.9) K/mcL BMP 02/11/17 19:05 Sodium 142 Potassium 4.0 Chloride 108 Carbon Dioxide 24 BUN 12 Creatinine 1.15 Glucose 85 Calcium 9.2 - Impressions ITS Impressions Foot X-Ray 02/11/17 17:03 IMPRESSION: Soft tissue swelling without acute or focal bony abnormality. If osteomyelitis is a clinical concern, an MRI would be a helpful study. D/ / Jessie Chisholm Cha, MD / Jessie Chisholm Cha, MD Interpreting Provider: Jessie Chisholm Cha, MD Hip X-Ray 02/11/17 21:13 IMPRESSION: Status post total right hip arthroplasty, in gross anatomic alignment, without evidence of hardware complication, acute fracture or dislocation. Cortical thickening at the proximal right femoral diaphysis, likely related to postoperative changes or healing of old fracture. D/ / Jaguar Lee MD / Jaguar Lee MD Interpreting Provider: Jaguar Lee MD - Diagnostic Studies Other Images Status: image reviewed by me (hip and foot xray)
[2017-02-12] MEDS ORDERED: Naloxone 0.4 MG/ML INJ IVP PRN (00:09)
[2017-02-12] MEDS ORDERED: Acetaminophen 325 MG TABLET PO PRN (00:09)
[2017-02-12] MEDS: *HR* HYDROmorphone (PF) 1 MG/ML SYRINGE IVP PRN ×5 (01:19→20:33)
[2017-02-12] MEDS: Ketorolac 30 MG/ML VIAL IVP PRN ×2 (04:10→18:31)
[2017-02-12 05:44] LABS: Basophils % 0.5 %; Eosinophils # 0.2 K/mcL (0.0-0.6); Eosinophils % 2.3 %; Hematocrit 37.6 % (37.5-50.1); Immature Granulocytes % 0.3 % (0-4); Lymphocytes # 1.3 K/mcL (0.6-4.6); Lymphocytes % 18.2 %; Mean Corpuscular HGB Conc 35.1 g/dL (31.6-35.5); Mean Corpuscular Hemoglobin 32.9 pg (28.0-33.3); Mean Corpuscular Volume 93.8 fL (83.0-100.0); Mean Platelet Volume 9.8 fL (9.4-12.4); Monocytes # 0.5 K/mcL (0.0-1.3); Monocytes % 6.7 %; Neutrophils # 5.2 K/mcL (1.6-8.9); Platelet Count 158 K/mcL (140-400); Red Blood Count 4.01 M/mcL (4.19-5.50); Red Cell Distribution Width 13.2 % (11.5-14.5)
[2017-02-12 05:46] LABS: Hemoglobin 13.2 g/dL (12.9-16.9)
[2017-02-12 05:58] LABS: BUN/Creatinine Ratio 11 (6-26); Blood Urea Nitrogen 11 mg/dL (8-26); Calcium 8.6 mg/dL (8.6-10.8); Carbon Dioxide 23 mEq/L (19-29); Chloride 111 mEq/L (98-109); Glucose 99 mg/dL (70-99); Magnesium 2.3 mg/dL (1.6-2.6); Osmolality,Calculated 291 (280-300); Potassium 3.8 mEq/L (3.5-4.5); Sodium 141 mEq/L (136-145); eGFR For African Americans > 60 (> 60); eGFR For Non-African Americans > 60 (> 60)
[2017-02-12 05:59] LABS: Phosphorous 2.6 mg/dL (2.3-4.7)
[2017-02-12] MEDS ORDERED: Vancomycin 1,000 MG in D5% in Water 250 ML IVPB SCH (06:00)
[2017-02-12] MEDS: Ampicillin/Sulbactam 3,000 MG in 0.9 % Sodium Chloride Mini Bag 100 ML IVPB SCH ×3 (06:05→18:30)
[2017-02-12] MEDS: ULORIC 80MG PO SCH (07:50)
[2017-02-12] MEDS: ULORIC 40MG PO SCH (07:50)
[2017-02-12] MEDS ORDERED: *HR* Dextrose 50 % in Water (Syg) 50 ML SYRINGE IVP ONE (08:19)
[2017-02-12] MEDS: *HR* OxyCODONE/APAP 5/325 TABLET PO PRN ×3 (09:41→23:48)
[2017-02-12] MEDS: Vancomycin 1,250 MG in D5% in Water 250 ML IVPB SCH ×2 (09:41→20:34)
[2017-02-12] MEDS ORDERED: *HR* LORazepam 2 MG/ML VIAL IVP ONE (11:11)
--- NOTE | 2017-02-12 11:17 | Internal Med Progress Note ---
Date of Encounter: 02/12/17 Time of Encounter: 08:10 - Assessment and plan (1) Cellulitis of second toe of right foot Current Visit: Yes Status: Acute Assessment and plan: Patients with a history of right hip from replacement due to avascular necrosis , now has cellulitis on the same side, due to concern for the possibility of bacteremia with seeding of the implant, blood cultures have been drawn with empiric use of IV antibiotics pending microbiology results. IV Vancomycin to cover for MRSA and Unasyn for better strep coverage(patient reports that he gets hives with the penicillins but Benadryl is able to control it, no anaphylactic reaction has been associated with this), continue pain management, foot elevation. Pt and I discussed podiatry consult, however, we have decided to wait on MRI hip results and possible ortho consult. Continue IV antibiotics Continue pain control Elevate extremity (2) AIP (acute intermittent porphyria) Current Visit: Yes Status: Chronic Assessment and plan: Stable. Follow up with PCP. PT reports abdominal pain with IV antibiotics, amp of D50 given per his request. (3) Depression Current Visit: Yes Status: Chronic Assessment and plan: Chronic. Continue home medications. Qualifiers: Depression Type: major depressive disorder Major depression recurrence: recurrent Active/Remission status: in partial remission Qualified Code(s): F33.41 - Major depressive disorder, recurrent, in partial remission (4) Right hip pain Current Visit: Yes Status: Acute Assessment and plan: Pt reports right hip pain and he is concerned about possible infection to hip. Pt is able to ambulate. Prior hip replacement to right side due to AVN. CT completed, possible cellulitis, MRI ordered. Hip X-Ray 02/11/17 21:13 IMPRESSION: Status post total right hip arthroplasty, in gross anatomic alignment, without evidence of hardware complication, acute fracture or dislocation. Cortical thickening at the proximal right femoral diaphysis, likely related to postoperative changes or healing of old fracture. D/ / Jaguar Lee MD / Jaguar Lee MD Interpreting Provider: Jaguar Lee MD Hip CT 02/12/17 09:30 IMPRESSION: Minimal degree of subcutaneous edema along the lateral aspect of the right hip/proximal thigh without evidence for other soft tissue abnormality. Findings are nonspecific but could reflect cellulitis. Stable appearance to right hip prosthesis without evidence for hardware complication. Within the limitations of the exam no acute bony abnormalities or CT evidence for osteomyelitis. D/ / 02/12/2017 10:33:32 Harshad Wetzel MD / carey Interpreting Provider: Harshad Wetzel MD (5) Pain of right calf Current Visit: Yes Status: Acute Assessment and plan: Pt reports pain and tenderness to right calf, also swelling. Doppler completed and is negative for DVT or SVT. Continue to monitor. Pain control as ordered. - Time Spent With Patient less than 15 minutes - Subjective Interval history: Pt was seen and assessed at 0810. Pt is alert and awake, oriented. Pt reports right hip pain and is concerned about infection in hip replacement, replaced due to AVN. Toe appears better than on arrival. Pt also reports right calf pain and swelling, doppler negative for DVT. Pt reports increasing pain to toe and hip medication frequency increased. Will follow up with hip pain with MRI and pt and I discussed holding off on consult to ortho until after MRI is completed and resulted. - Constitutional Vitals: Temp Pulse Resp BP Pulse Ox 98.4 F 88 16 135/85 94 02/12/17 11:03 02/12/17 11:03 02/12/17 11:03 02/12/17 11:03 02/12/17 11:03 General appearance: Present: cooperative, A&O X 3, pleasant, no acute distress, answers questions appropriately - Head Head exam: Present: atraumatic, normal inspection, normocephalic - Eye Eye exam: Present: EOMI, normal appearance, conjuntiva pink, sclera anicteric - Neck Neck exam general surgery: Present: supple, trachea midline - Respiratory Respiratory exam: Present: CTAB. Absent: accessory muscle use, chest wall tenderness, rales, respiratory distress, rhonchi, wheezes - Cardiovascular Cardiovascular exam: Present: RRR, +S1, +S2. Absent: bradycardia, diastolic murmur, gallop, rubs, systolic murmur, tachycardia - GI/Abdominal GI/Abdominal exam: Present: normal bowel sounds, soft. Absent: distended, hepatomegaly, tenderness - Extremities Exam Extremities exam: Present: calf tenderness, joint swelling, pedal edema, tenderness, warm, radial pulses palpable and symmetrical - Neurological Exam Neurological exam: Present: alert, oriented X3, no focal deficits. Absent: facial droop, speech deficit - Skin Skin exam: Present: dry, intact, normal color, warm. Absent: rash Internal Medicine: Result - Labs CBC & Chem 7: 02/12/17 05:04 02/12/17 05:04 Labs: Short CBC 02/12/17 Range/Units 05:04 WBC 7.3 (4.3-11.1) K/mcL Hgb 13.2 D (12.9-16.9) g/dL Hct 37.6 (37.5-50.1) % Plt Count 158 (140-400) K/mcL Neutrophils # 5.2 (1.6-8.9) K/mcL BMP 02/12/17 05:04 Sodium 141 Potassium 3.8 Chloride 111 H Carbon Dioxide 23 BUN 11 Creatinine 1.04 Glucose 99 Calcium 8.6 - Impressions Impressions Hip CT 02/12/17 09:30 IMPRESSION: Minimal degree of subcutaneous edema along the lateral aspect of the right hip/proximal thigh without evidence for other soft tissue abnormality. Findings are nonspecific but could reflect cellulitis. Stable appearance to right hip prosthesis without evidence for hardware complication. Within the limitations of the exam no acute bony abnormalities or CT evidence for osteomyelitis. D/ / 02/12/2017 10:33:32 Harshad Wetzel MD / carey Interpreting Provider: Harshad Wetzel MD Consult Discharge Plan - Plan Referrals: Keri De Santiago MD [Primary Care Provider] -
[2017-02-12] MEDS: Ondansetron 4 MG/2 ML VIAL IVP PRN ×2 (12:04→18:35)
--- NOTE | 2017-02-12 13:10 | Podiatry Consult Note ---
Date of Encounter: 02/12/17 Time of Encounter: 12:00 Assessment and Plan (1) Pain of toe of right foot Current visit: Yes Status: Acute Assessment: Pain of right foot toe #2 Patient has hx of gouty arthritis Will order uric acid level to assess for gout flare. Does not appear infectious at this time There is edema to right foot however due to normal white count and low inflammatory markers, low suspicion of cellulitis related to infectious process of toe Continue antibiotics while patient is worked up for edema and pain Will continue to follow If uric acid is elevated will plan for steroid infection of IP joint of toe #2 tomorrow Plan discussed with patient, verbalized understanding Foot X-Ray 02/11/17 17:03 IMPRESSION: Soft tissue swelling without acute or focal bony abnormality. If osteomyelitis is a clinical concern, an MRI would be a helpful study. D/ / Jessie Chisholm Cha, MD / Jessie Chisholm Cha, MD Interpreting Provider: Jessie Chisholm Cha, MD (2) Edema of right foot Current visit: Yes Status: Acute Patient being worked up for possible infection of hip joint Will reevaluate edema after MRI of right hip Possible ortho consult for evaluation If edema is found unrelated to hip, and edema and erythema does not improve with treatment of gouty arthritis of toe, CT or MRI of foot may be warranted. Will continue to follow. History of Present Illness HPI: Mr. Jordan is a 46 year old male who has been consulted to us regarding pain of toe #2 right foot and edema of foot. Patient reports streaking up leg. States this has occurred over past 2-3 days. Patient however states his has right hip pain which has been ongoing for 2 weeks. States that he had a replacement 4 years ago and he is concerned there is infection in the hip and he is awaiting a right hip MRI. Patient has a hx of gout of right foot toe #2 and has been treated with steroid injections of joint in past. Patient denies any fevers or chills. There is no white count and ESR is 8. Past Med Surg Social Fam HX - Past Medical History Medical history: kidney stones, SVT, other Psychiatric history: no psych history - Past Surgical History Surgical History: appendectomy, cholecystectomy, hip replacement, other - Social History Smoking Status: Never smoker Smokeless Tobacco Status: No Alcohol use: none Drug use: none - Family History Mother History Unknown: Yes Adopted: [place]: naomi Age: 74 Family Member Ethnicity: Non- Living Status: Still Living Hx Family Cardiac Disorders: Yes (htn) Hx Family Respiratory Disorders: No Hx Family Cancer: No Hx Family GI Disorders: No Hx Family Endocrine Disorder: Yes (hypothyroid) Hx Family Neuromuscular Disorders: No Hx Family Neurologic Disorders: No Hx Family HEENT Disorders: No Hx Family Autoimmune Disorders: No Father Family Member Ethnicity: Non- Living Status: Still Living Hx Family Cardiac Disorders: Yes (cardiac stent, htn) Hx Family Respiratory Disorders: Yes (sleep apnea) Hx Family Cancer: No Hx Family GI Disorders: No Hx Family Endocrine Disorder: Yes (DM type 2 insulin dependent) Hx Family Neuromuscular Disorders: No Hx Family Neurologic Disorders: No Hx Family HEENT Disorders: No Hx Family Autoimmune Disorders: No Medications and Allergies Febuxostat [Uloric] 40 mg PO DAILY 08/30/16 [History] Ondansetron ODT [Zofran ODT] 4 mg SL Q6HR #20 tab.rapdis 09/03/16 [Rx] Sertraline [Zoloft] 50 mg PO DAILY 02/12/17 [History] 3 Allergy/AdvReac Type Severity Reaction Status Date / Time cefepime Allergy Hives Verified 02/11/17 16:56 Erythromycin Base Allergy Hives Verified 02/11/17 16:56 morphine Allergy Hives Verified 02/11/17 16:56 piperacillin [From Zosyn] Allergy Hives Verified 02/11/17 16:56 propoxyphene Allergy Hives Verified 02/11/17 16:56 [From Darvocet-N] shellfish derived Allergy Anaphylaxis Verified 02/11/17 16:56 tazobactam [From Zosyn] Allergy Hives Verified 02/11/17 16:56 ciprofloxacin [From Cipro] AdvReac Hives Verified 02/11/17 16:56 metoclopramide [From Reglan] AdvReac Hives Verified 02/11/17 16:56 All Systems Reviewed: A 10-system review of systems was performed and is negative for pertinent findings except as documented above in the HPI. Physical Exam - Constitutional Vitals: Temp Pulse Resp BP Pulse Ox 98.4 F 88 16 135/85 94 10/25/17 11:03 02/12/17 11:03 02/12/17 11:03 02/12/17 11:03 02/12/17 11:03 Exam: Awake, alert and oriented x3 Pedal pulses palpable DP/PT Cap refill <3 seconds Sensation intact with light touch, no loss of protective sensation There is noted erythema, edema, warmth and associated tenderness surrounding IP joint and distal tip of toe #2 right foot. This is most consistent with gouty arthritis There is mild edema and very mild erythema noted to dorsal aspect of right foot There is not appear to be connection from the toe to edema of the foot and there is low clinical suspicion of an infectious process of the toe Patient states there was streaking up leg however there is no streaking visible at this time Results - Labs Result Diagrams: 02/12/17 05:04 02/12/17 05:04 Labs: Abnormal lab results RBC 4.01 M/mcL (4.19-5.50) L 02/12/17 05:04 Chloride 111 mEq/L (98-109) H 02/12/17 05:04 H & H 02/12/17 Range/Units 05:04 Hgb 13.2 D (12.9-16.9) g/dL Hct 37.6 (37.5-50.1) % All other labs normal. Consult Discharge Plan - Plan Referrals: Keri De Santiago MD [Primary Care Provider] -
[2017-02-12 13:51] LABS: Uric Acid 7.9 mg/dL (3.5-7.2)
[2017-02-13] MEDS: Ketorolac 30 MG/ML VIAL IVP PRN ×2 (00:40→06:46)
[2017-02-13] MEDS: Ondansetron 4 MG/2 ML VIAL IVP PRN ×3 (00:41→12:42)
[2017-02-13] MEDS: *HR* HYDROmorphone (PF) 1 MG/ML SYRINGE IVP PRN ×6 (00:41→22:25)
[2017-02-13] MEDS: Ampicillin/Sulbactam 3,000 MG in 0.9 % Sodium Chloride Mini Bag 100 ML IVPB SCH ×4 (01:24→17:56)
[2017-02-13 04:33] LABS: Basophils % 0.8 %; Eosinophils # 0.2 K/mcL (0.0-0.6); Eosinophils % 4.4 %; Hematocrit 35.7 % (37.5-50.1); Hemoglobin 12.7 g/dL (12.9-16.9); Immature Granulocytes % 0.2 % (0-4); Lymphocytes # 1.4 K/mcL (0.6-4.6); Lymphocytes % 29.2 %; Mean Corpuscular HGB Conc 35.6 g/dL (31.6-35.5); Mean Corpuscular Hemoglobin 33.5 pg (28.0-33.3); Mean Corpuscular Volume 94.2 fL (83.0-100.0); Mean Platelet Volume 9.7 fL (9.4-12.4); Monocytes # 0.4 K/mcL (0.0-1.3); Monocytes % 8.8 %; Neutrophils # 2.7 K/mcL (1.6-8.9); Platelet Count 135 K/mcL (140-400); Red Blood Count 3.79 M/mcL (4.19-5.50); Red Cell Distribution Width 13.1 % (11.5-14.5); Segmented Neutrophils % 56.6 %
[2017-02-13 04:36] LABS: INR 0.9; Prothrombin Time 10.1 Seconds (9.4-12.1)
[2017-02-13 04:54] LABS: Alanine Aminotransferase 66 Units/L (0-55); Aspartate Amino Transferase 69 Units/L (5-34); BUN/Creatinine Ratio 10 (6-26); Blood Urea Nitrogen 10 mg/dL (8-26); Calcium 8.7 mg/dL (8.6-10.8); Carbon Dioxide 23 mEq/L (19-29); Chloride 109 mEq/L (98-109); Glucose 100 mg/dL (70-99); Osmolality,Calculated 291 (280-300); Potassium 3.8 mEq/L (3.5-4.5); Sodium 141 mEq/L (136-145); eGFR For African Americans > 60 (> 60); eGFR For Non-African Americans > 60 (> 60)
[2017-02-13] MEDS: *HR* OxyCODONE/APAP 5/325 TABLET PO PRN ×3 (06:04→21:11)
[2017-02-13] MEDS ORDERED: *HR* LORazepam 2 MG/ML VIAL IVP ONE (07:21)
[2017-02-13] MEDS: Vancomycin 1,500 MG in D5% in Water 250 ML IVPB SCH ×2 (09:46→22:47)
[2017-02-13] MEDS: Magic Mouthwash 10 ML UD Cup PO PRN ×2 (09:47→17:45)
[2017-02-13] MEDS: ULORIC 40MG PO SCH (11:04)
[2017-02-13] MEDS: ULORIC 80MG PO SCH (11:05)
[2017-02-13 14:13] LABS: % Iron Saturation 15 % (20-55); Iron 49 mcg/dL (65-175); Transferrin 241 mg/dL (174-364)
[2017-02-13 14:49] LABS: Folate 10.5 ng/mL (7.0-31.4)
[2017-02-13] MEDS ORDERED: hydrOXYzine pamoate 25 MG CAPSULE PO PRN (14:51)
--- NOTE | 2017-02-13 15:14 | Infectious Disease Consult ---
Date of Encounter: 02/13/17 Time of Encounter: 15:12 Assessment and Plan (1) Cellulitis of foot Status: Acute Assessment and plan: Cellulitis vs. gout flare vs. other. Location: Right foot distal second toe and right dorsal foot. Foot x-ray negative for acute bony abnormality, but does show some soft tissue swelling. The patient has no SIRS criteria. Erythema to the right foot improved, but toe erythema is unchanged. ESR and CRP are normal. Blood cultures drawn 02/11/17 are NGTD x 2 sets. Podiatry consulted and following. Await further recommendations. Continue Vancomycin IV for now (day 3). Pharmacy to dose. Goal trough ~15. Continue Unasyn 3 grams IV Q6H. Consider covering for both infection and gout flare, but will defer the ordering of steroids to the primary and podiatry teams. Duration of treatment depends on the clinical picture. Monitor renal function and for drug toxicity and dose-adjust antibiotics. (2) Right hip pain Status: Acute Assessment and plan: Etiology not entirely clear, but low index of suspicion for infectious etiology. Imaging not conclusive for infection, but the MRI showed fluid decompressing into the iliopsoas tendon sheath and iliacus muscle. Additionally, a small seroma was noted adjacent to the surgical scar. IR consulted. States seroma is too small to aspirate. Ortho has been consulted. Await recommendations. Consider aspiration of the hip joint to evaluate for septic arthritis. Continue antibiotics as above for now. Pain management per the primary team. (3) Pain of toe of right foot Status: Acute (4) AIP (acute intermittent porphyria) Status: Chronic (5) Diarrhea Status: Acute Assessment and plan: The patient had one episode of diarrhea which is not indicative of C. diff. Likely secondary to IV antibiotics. Cancel C. diff testing. Cancel C. diff precautions. If the patient begins to have more than four loose, watery stools per day, consider C. diff testing at that time. Start probiotic BID. Qualifiers: Diarrhea type: unspecified type Qualified Code(s): R19.7 - Diarrhea, unspecified Infectious Disease HPI - Data of Consult Patient: known to practice within the last 3 years Consult date: 02/13/17 Requesting Physician: Beverly Palm CNP Primary Care Provider: Keri De Santiago - Consult Narrative Reason for consult: Right toe cellulitis History of present illness: Mr. 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 She was admitted to the hospital February 11 for cellulitis of the right second toe. We are consult February 13 for antibiotic recommendations regarding cellulitis of the right second toe. Briefly, the patient is a 46-year-old male with past medical history as stated above. The patient is noted to the infectious disease service as we've been consulted on this case in the past. The patient states that couple of weeks ago , he started having significant pain in his right hip. He states 2 days prior to admission he began to have some redness and swelling and pain in the right foot second toe. In and swelling continued to get worse and he noticed some redness migrating up the foot and into the ankle on the day of admission. Upon arrival to ER, he had a low-grade fever and was mildly tachycardic. His white blood cell count was normal. He endorsed a history of fever at home with significant chills and general malaise. He had a right foot x-ray that showed soft tissue swelling without bony abnormality. He also had a right hip x-ray that was essentially negative. The patient was given a dose of IV vancomycin and had blood cultures drawn in the emergency department. He was admitted to the hospital for further evaluation and treatment. Since admission, the patient has undergone a right hip CAT scan that showed minimal subcutaneous edema, but no other abnormality. He also had a right hip MRI that showed a small fluid collection, likely a seroma, adjacent to the surgical scar. He also had some fluid decompressing into the iliopsoas tendon sheath and iliacus muscle. She was evaluated by interventional radiology today and in the fluid collection was too small to aspirate. The patient is continued to be afebrile, hemodynamically stable, and leukocytosis since admission. He does have a mild pancytopenia today. Currently he is on IV Unasyn and IV vancomycin. We've been asked to evaluate and make further recommendations. I exam today, the patient states that overall he just feels poorly. He states he has generalized malaise and fatigue and is exhausted. He complains of significant pain in the right hip that is deep and is worse with abduction of the hip. He denies any changes at the surgical site. He states he's noticed intermittent inguinal lymphadenopathy. He reports a fever at home with associated chills and rigors. He denies any recent congestion, earache, or sore throat. He denies any chest pain, shortness of breath, or cough. He reports some nausea, but no vomiting. He states he hasn't been eating very much. He denies any abdominal pain or urinary complaints. He states that the pain in his foot started in the toe and migrated up the foot to the back of the calf, spared the knee and thigh, and was in the right hip. He states the pain is improved in his calf, but he continues to have pain in the right second toe, foot, and lateral ankle. Does have a history of gout has been taking Colcrys since the thought it might be a gout flare, but the pain and swelling and redness continued to get worse. He denies any back pain. 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 Source: patient, old records reviewed, nursing notes reviewed Medical history: kidney stones, SVT, other (Avascular necrosis right hip s/p right THR) Psychiatric history: no psych history - Past Surgical History Surgical History: appendectomy, cholecystectomy, hip replacement, other (Left foot great toe arthrotomy) - Social History Smoking Status: Never smoker Smokeless Tobacco Status: No Alcohol use: none Drug use: none Occupational status: employed Current living situation: Home - Independent Activity Level: Independent ambulation Recent Out of Country Travel Within the Last 8 Weeks: No Exposure or Possible Exposure to Illness During Travel: No - Family History Mother History Unknown: Yes Adopted: [place]: naomi Age: 74 Family Member Ethnicity: Non- Living Status: Still Living Hx Family Cardiac Disorders: Yes (htn) Hx Family Respiratory Disorders: No Hx Family Cancer: No Hx Family GI Disorders: No Hx Family Endocrine Disorder: Yes (hypothyroid) Hx Family Neuromuscular Disorders: No Hx Family Neurologic Disorders: No Hx Family HEENT Disorders: No Hx Family Autoimmune Disorders: No Father Family Member Ethnicity: Non- Living Status: Still Living Hx Family Cardiac Disorders: Yes (cardiac stent, htn) Hx Family Respiratory Disorders: Yes (sleep apnea) Hx Family Cancer: No Hx Family GI Disorders: No Hx Family Endocrine Disorder: Yes (DM type 2 insulin dependent) Hx Family Neuromuscular Disorders: No Hx Family Neurologic Disorders: No Hx Family HEENT Disorders: No Hx Family Autoimmune Disorders: No Infectious Disease-CN:Meds Febuxostat [Uloric] 40 mg PO DAILY 08/30/16 [History] Ondansetron ODT [Zofran ODT] 4 mg SL Q6HR #20 tab.rapdis 09/03/16 [Rx] Sertraline [Zoloft] 50 mg PO DAILY 02/12/17 [History] 3 Allergy/AdvReac Type Severity Reaction Status Date / Time cefepime Allergy Hives Verified 02/11/17 16:56 Erythromycin Base Allergy Hives Verified 02/11/17 16:56 morphine Allergy Hives Verified 02/11/17 16:56 piperacillin [From Zosyn] Allergy Hives Verified 02/11/17 16:56 propoxyphene Allergy Hives Verified 02/11/17 16:56 [From Darvocet-N] shellfish derived Allergy Anaphylaxis Verified 02/11/17 16:56 tazobactam [From Zosyn] Allergy Hives Verified 02/11/17 16:56 ciprofloxacin [From Cipro] AdvReac Hives Verified 02/11/17 16:56 metoclopramide [From Reglan] AdvReac Hives Verified 02/11/17 16:56 All systems: reviewed and no additional remarkable complaints except as stated Exam - Constitutional Vitals: Temp Pulse Resp BP Pulse Ox 98.6 F 84 16 162/102 95 02/13/17 12:07 02/13/17 12:07 02/13/17 12:07 02/13/17 12:07 02/13/17 12:07 General appearance: average body habitus, cooperative, no acute distress - Head Head exam: Present: atraumatic, normal inspection, normocephalic - Eye Eye exam: Present: EOMI, normal appearance, PERRL Pupils: Present: normal accommodation - ENT ENT exam: Present: mucous membranes moist - Neck Neck exam: Present: normal inspection. Absent: lymphadenopathy - Respiratory Respiratory exam: Present: CTAB. Absent: rales, respiratory distress, rhonchi, wheezes - Cardiovascular Cardiovascular exam: Present: RRR, +S1, +S2 - GI/Abdominal GI/Abdominal exam: Present: normal bowel sounds, soft. Absent: distended, tenderness - Extremities Exam Extremities exam: Present: joint swelling (Right foot second toe IP joint), pedal edema (Trace Right foot/ankle), tenderness (Right foot second toe) - Expanded Lower Extremity Exam 1 - Well-healed hip replacement incision without redness, warmth, drainage. Right hip abduction limited due to pain, but otherwise ROM normal. 1 - Erythema, tenderness - Back Exam Back exam: Present: normal inspection. Absent: paraspinal tenderness, vertebral tenderness - Neurological Exam Neurological exam: Present: alert, oriented X3, no focal deficits - Psychiatric Psychiatric exam: Present: normal affect, normal mood - Skin Skin exam: Present: dry, intact, normal color, warm - Additional findings Additional findings: Patient reports intermittent inguinal lymphadenopathy, but none noted at this time. Infectious Disease CN: Results - Labs CBC & Chem 7: 02/13/17 03:53 02/13/17 03:53 Consult Discharge Plan - Plan Referrals: Keri De Santiago MD [Primary Care Provider] -
[2017-02-13] MEDS: *HR* Promethazine 25 MG/ML VIAL IVP PRN ×2 (15:17→22:25)
[2017-02-13] MEDS ORDERED: Metoprolol XL (24 HR) Succ 50 MG TAB.ER.24H PO ONE (15:40)
--- NOTE | 2017-02-13 16:36 | Orthopedic Consult Note ---
Date of Encounter: 02/13/17 Time of Encounter: 17:44 Assessment and Plan (1) Right hip pain Current Visit: Yes Status: Acute Dr. Piper notified patient's condition. Will plan for bone scan given patient's presentation as above. Will also consult general surgery given patient's concerns regarding other health conditions. Patient to continue pain control per hospitalist. (2) Status post total hip replacement, right Current Visit: Yes Status: Chronic (3) Pain aggravated by walking Current Visit: Yes Status: Acute History of Present Illness Chief complaint: right hip pain HPI: Mr. Jordan is a 46 year old male presenting to [facility] for toe and foot pain with red streaking. 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 He is s/p right THR 03/2013 at [facility]. Based on his labwork and other evaluations appears to be more cellulitis of the foot in origin and no pathology with hip other than fluid collection as noted below on MRI, however patient states he has Porphyria and had acute appendicitis in 06/2016 which per patient had no lab value changes but did have appendectomy with Dr. Torres which revealed the appendicitis. Patient states he developed right hip pain unprovoked two weeks ago. He denies any injury, fall, or MVA in the past 1 year. He states that only a couple days ago he developed the right toe and foot pain. He has a history of gout but states it has never been this bad before. He states he has increasingly felt unwell over the past 2 weeks with increasing difficulty with ambulation secondary to right hip pain per patient. He states he has a strong family history of Multiple Myeloma and is in the process of evaluation for that as he states he feels something is not right about his health despite no recent illnesses or trauma. On exam he is resting comfortably in bed. He is alert and oriented. Right hip incision is well healed with no erythema, ecchymosis, or petechiae. No fluctuance noted to incision. Nontender to palpation of incision. 3 mildly swollen lymph nodes noted to right groin. Palpation of greater trochanter up to iliac crest tender to palpation causing patient to guarding. He is otherwise nontender at the right hip. Left hip is nontender. ROM right hip is full and intact though hip abduction causes patient pain in same area as palpated. B/L knees are wnl. Patient right foot and second digit is erythematous and tender to palpation. ROM intact. Neurovascularly intact. MR/MR hip RT wo con IMPRESSION: 1. Postsurgical scarring in the subcutaneous fat of the right lateral proximal thigh without significant abnormal soft tissue edema. Small 2.3 x 2 x 0.9 cm fluid collection along the surgical scar deep to the iliotibial band compatible with a postoperative seroma. Abscess not entirely excluded although the lack of adjacent edema suggests a seroma. No communication with the joint space identified. 2. Status post right total hip arthroplasty. Fluid decompressing into the iliopsoas tendon sheath and iliacus muscle. If there is any clinical concern for septic arthritis please consider arthrocentesis. No evidence of osteomyelitis. 3. Multilevel bilateral facet arthropathy of the visualized lower lumbar spine. D/ / Chau Jordan MD / Chau Jordan MD Interpreting Provider: Chau Jordan MD Dr. Piper notified patient's condition. Will plan for bone scan given patient's presentation as above. Will also consult general surgery given patient's concerns regarding other health conditions. Patient to continue pain control per hospitalist. Thank you for this consultation. Past Med Surg Social Fam HX - Past Medical History Medical history: kidney stones, SVT, other (Avascular necrosis right hip s/p right THR) Psychiatric history: no psych history - Past Surgical History Surgical History: appendectomy, cholecystectomy, hip replacement, other (Left foot great toe arthrotomy) - Social History Smoking Status: Never smoker Smokeless Tobacco Status: No Alcohol use: none Drug use: none - Family History Mother History Unknown: Yes Adopted: [place]: naomi Age: 74 Family Member Ethnicity: Non- Living Status: Still Living Hx Family Cardiac Disorders: Yes (htn) Hx Family Respiratory Disorders: No Hx Family Cancer: No Hx Family GI Disorders: No Hx Family Endocrine Disorder: Yes (hypothyroid) Hx Family Neuromuscular Disorders: No Hx Family Neurologic Disorders: No Hx Family HEENT Disorders: No Hx Family Autoimmune Disorders: No Father Family Member Ethnicity: Non- Living Status: Still Living Hx Family Cardiac Disorders: Yes (cardiac stent, htn) Hx Family Respiratory Disorders: Yes (sleep apnea) Hx Family Cancer: No Hx Family GI Disorders: No Hx Family Endocrine Disorder: Yes (DM type 2 insulin dependent) Hx Family Neuromuscular Disorders: No Hx Family Neurologic Disorders: No Hx Family HEENT Disorders: No Hx Family Autoimmune Disorders: No Medications and Allergies Febuxostat [Uloric] 40 mg PO DAILY 08/30/16 [History] Ondansetron ODT [Zofran ODT] 4 mg SL Q6HR #20 tab.rapdis 09/03/16 [Rx] Sertraline [Zoloft] 50 mg PO DAILY 02/12/17 [History] 3 Allergy/AdvReac Type Severity Reaction Status Date / Time cefepime Allergy Hives Verified 02/11/17 16:56 Erythromycin Base Allergy Hives Verified 02/11/17 16:56 morphine Allergy Hives Verified 02/11/17 16:56 piperacillin [From Zosyn] Allergy Hives Verified 02/11/17 16:56 propoxyphene Allergy Hives Verified 02/11/17 16:56 [From Darvocet-N] shellfish derived Allergy Anaphylaxis Verified 02/11/17 16:56 tazobactam [From Zosyn] Allergy Hives Verified 02/11/17 16:56 ciprofloxacin [From Cipro] AdvReac Hives Verified 02/11/17 16:56 metoclopramide [From Reglan] AdvReac Hives Verified 02/11/17 16:56 All Systems Reviewed: A 10-system review of systems was performed and is negative for pertinent findings except as documented above in the HPI. Physical Exam - Constitutional Vitals: Temp Pulse Resp BP Pulse Ox 99.0 F 103 18 160/103 97 02/13/17 15:43 02/13/17 15:43 02/13/17 15:43 02/13/17 15:43 02/13/17 15:43 Results - Labs Result Diagrams: 02/13/17 03:53 02/13/17 03:53 Labs: Abnormal lab results RBC 3.79 M/mcL (4.19-5.50) L 02/13/17 03:53 Hgb 12.7 g/dL (12.9-16.9) L 02/13/17 03:53 Hct 35.7 % (37.5-50.1) L 02/13/17 03:53 MCH 33.5 pg (28.0-33.3) H 02/13/17 03:53 MCHC 35.6 g/dL (31.6-35.5) H 02/13/17 03:53 Plt Count 135 K/mcL (140-400) L 02/13/17 03:53 Glucose 100 mg/dL (70-99) H 02/13/17 03:53 Uric Acid 7.9 mg/dL (3.5-7.2) H 02/12/17 05:04 Iron 49 mcg/dL (65-175) L 02/13/17 13:13 % Saturation 15 % (20-55) L 02/13/17 13:13 AST 69 Units/L (5-34) H 02/13/17 03:53 ALT 66 Units/L (0-55) H 02/13/17 03:53 H & H 02/13/17 Range/Units 03:53 Hgb 12.7 L (12.9-16.9) g/dL Hct 35.7 L (37.5-50.1) % All other labs normal. Consult Discharge Plan - Plan Referrals: Keri De Santiago MD [Primary Care Provider] -
--- NOTE | 2017-02-13 17:39 | Podiatry Progress Note ---
Date of Encounter: 02/13/17 Time of Encounter: 15:30 - Assessment and Plan (1) Acute gout Current Visit: No Status: Acute Assessment: #1 acute gouty arthritis digits #2 right foot Plan: #1 would recommend Burst and diminished dosing of steroids provided patient has no other active infection per orthopedics and infectious disease. Otherwise we can give him indomethacin 50 mg 1 by mouth 3 times a day along with allopurinol if his uric acid is greater than 6.5. Qualifiers: Gout site: foot Gout etiology: idiopathic Laterality: right Qualified Code(s): M10.071 - Idiopathic gout, right ankle and foot Subjective Principal diagnosis: Painful toe #2 right foot Interval history: Admitted for right hip pain with recent onset of painful toe #2 right foot with a history of gouty arthritis. Patient states his second toe became painful overnight several days ago and his symptoms are consistent with acute gouty arthritis associated dorsal swelling of the right foot. Remainder of the toes are spared. Objective - Vital Signs Vital Signs: Vital Signs Temp Pulse Resp BP Pulse Ox 02/13/17 16:17 99.2 F 94 16 151/95 99 02/13/17 15:43 99.0 F 103 18 160/103 97 02/13/17 15:29 102 164/124 02/13/17 12:07 98.6 F 84 16 162/102 95 02/13/17 07:15 98.3 F 84 18 126/74 95 02/13/17 00:36 98.4 F 86 14 134/76 96 02/12/17 19:00 93 02/12/17 18:43 98.4 F 100 14 155/92 93 Intake and Output 02/13/17 02/13/17 02/13/17 07:59 15:59 23:59 Intake Total 350 / 350 350 / 350 Balance 350 / 350 350 / 350 Intake: IV Fluids 350 / 350 350 / 350 Unasyn 3,000 MG In 0.9 % Sodium 100 / 100 100 / 100 Chloride (Mini-Bag +) 100 ML @ 200 mls/hr IVPB Q6HR [facility] Rx#: [id number] Vancocin 1,500 MG In Dextrose 5 250 / 250 250 / 250 % 250 ML @ 166.67 mls/hr IVPB Q12H [facility] Rx#:[id number] Other: Meal NPO - Exam Exam: Erythematous #2 toe right foot at the level of the distal phalanx. The plantar aspect is spared of erythema toe #2. We do appreciate global edema of the right dorsal forefoot. No lymphangitis, no cellulitis. No open lesions. Skin is intact. - Lab Result Diagrams: 02/13/17 03:53 02/13/17 03:53 Labs: Abnormal lab results RBC 3.79 M/mcL (4.19-5.50) L 02/13/17 03:53 Hgb 12.7 g/dL (12.9-16.9) L 02/13/17 03:53 Hct 35.7 % (37.5-50.1) L 02/13/17 03:53 MCH 33.5 pg (28.0-33.3) H 02/13/17 03:53 MCHC 35.6 g/dL (31.6-35.5) H 02/13/17 03:53 Plt Count 135 K/mcL (140-400) L 02/13/17 03:53 Glucose 100 mg/dL (70-99) H 02/13/17 03:53 Uric Acid 7.9 mg/dL (3.5-7.2) H 02/12/17 05:04 Iron 49 mcg/dL (65-175) L 02/13/17 13:13 % Saturation 15 % (20-55) L 02/13/17 13:13 AST 69 Units/L (5-34) H 02/13/17 03:53 ALT 66 Units/L (0-55) H 02/13/17 03:53 Consult Discharge Plan - Plan Referrals: Keri De Santiago MD [Primary Care Provider] -
--- NOTE | 2017-02-13 20:12 | Internal Med Progress Note ---
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 IV Vancomycin to cover for MRSA and Unasyn for better strep coverage(patient reports that he gets hives with the penicillins but Benadryl is able to control it, no anaphylactic reaction has been associated with this), continue pain management, foot elevation. Pt was seen by podiatry today. Physician believes that patient has a flare of acute gouty arthritis and recommended burst and taper of steroids. After discharge he will be given indomethacin 50 mg by mouth 3 times a day with allopurinol. Patient also has been seen by infectious disease. Differentials for them include cellulitis versus gout flare versus other. ESR and CRP are normal. Blood cultures are negative 2. We will continue the vancomycin for right now pharmacy to dose. Continue Unasyn 3 g IV every 6 hours. Infectious disease recommends considering covering for both infection and gout flare but will defer to the ordering of steroids to primary podiatry teams. We will wait until after joint aspiration tomorrow to start steroid burst and taper. Discuss this with Dr. Piper. Continue IV antibiotics Continue pain control Elevate extremity Steroid burst and taper per recommendation of podiatry. (2) AIP (acute intermittent porphyria) Current Visit: Yes Status: Chronic Assessment and plan: Stable. Follow up with PCP. PT reports abdominal pain with IV antibiotics, amp of D50 given per his request Continue to monitor. (3) Depression Current Visit: Yes Status: Chronic Assessment and plan: Chronic. Continue home medications. He also appears to have some mild anxiety. He is requiring Ativan before procedures, requesting after procedures. Hydroxyzine has been offered as an alternative. Qualifiers: Qualified Code(s): F33.41 - Major depressive disorder, recurrent, in partial remission (4) Right hip pain Current Visit: Yes Status: Acute Assessment and plan: Pt reports right hip pain and he is concerned about possible infection to hip. Pt is able to ambulate. Prior hip replacement to right side due to AVN [address] completed, possible cellulitis. MRI hip shows small fluid collection along surgical store deep to the IT band compatible with postoperative seroma. There is also fluid decompressing into the iliopsoas tendon and iliac is muscle. [facility] was consulted, joint aspiration was ordered, however not performed. Patient will go back for joint aspiration tomorrow morning. According to CT there is no evidence of osteomyelitis. As stated above, patient could benefit from a burst and taper of steroids after hip aspiration. Patient has a small subcentimeter soft lymph node in right groin. Patient reports low-grade fever, however temperature has not gone above 99.2. Since blood pressure is mildly elevated, pulse is 90. Hip X-Ray 02/11/17 21:13 IMPRESSION: Status post total right hip arthroplasty, in gross anatomic alignment, without evidence of hardware complication, acute fracture or dislocation. Cortical thickening at the proximal right femoral diaphysis, likely related to postoperative changes or healing of old fracture. D/ / Jaguar Lee MD / Jaguar Lee MD Interpreting Provider: Jaguar Lee MD Hip CT 02/12/17 09:30 IMPRESSION: Minimal degree of subcutaneous edema along the lateral aspect of the right hip/proximal thigh without evidence for other soft tissue abnormality. Findings are nonspecific but could reflect cellulitis. Stable appearance to right hip prosthesis without evidence for hardware complication. Within the limitations of the exam no acute bony abnormalities or CT evidence for osteomyelitis. D/ / 02/12/2017 10:33:32 Harshad Wetzel MD / carey Interpreting Provider: Harshad Wetzel MD (5) Pain of right calf Current Visit: Yes Status: Acute Assessment and plan: Pt reports pain and tenderness to right calf, also swelling. Doppler completed and is negative for DVT or SVT. Continue to monitor. Patient denies calf pain today. Pain control as ordered. - Time Spent With Patient less than 15 minutes - Subjective Interval history: Pt was seen and assessed at 07:15. Pt is alert and awake, oriented. Patient still reports left hip pain and apparently walks with a limp now. Toe and dorsal right foot appear more edematous and swollen than yesterday. Patient denies right calf pain today. Pt reports increasing pain to toe and hip, medication frequency increased. Patient also appears to have uncontrolled nausea. He is requested Benadryl 25 mg IV, as well as Phenergan 12.5 mg IV. He reports that Zofran does not help him. Patient also has been requesting Ativan prior to every procedure, as well as requesting Ativan after procedure today. I offered him hydroxyzine as an alternative. Patient has suggests multiple labs that I order for him. He is concerned that he may have multiple myeloma. He has been seen by surgery, or so, podiatry, infectious disease , as well as interventional radiology. Patient has a 3 phase bone scan for right hip tomorrow. Patient has suggested being transferred to [facility] where his surgery was done. Will wait for results of testing prior to transfer. - Constitutional Vitals: Temp Pulse Resp BP Pulse Ox 99.2 F 91 16 151/91 95 02/13/17 18:56 02/13/17 18:56 02/13/17 18:56 02/13/17 18:56 02/13/17 18:56 General appearance: Present: cooperative, A&O X 3, pleasant, no acute distress, answers questions appropriately - Head Head exam: Present: atraumatic, normal inspection, normocephalic - Eye Eye exam: Present: normal appearance, conjuntiva pink, sclera anicteric - Neck Neck exam general surgery: Present: supple, trachea midline. Absent: tenderness - Respiratory Respiratory exam: Present: CTAB. Absent: accessory muscle use, chest wall tenderness, rales, respiratory distress, rhonchi, wheezes - Cardiovascular Cardiovascular exam: Present: RRR, +S1, +S2. Absent: diastolic murmur, gallop, rubs, systolic murmur - GI/Abdominal GI/Abdominal exam: Present: normal bowel sounds, soft, tenderness, no peritoneal signs. Absent: hepatomegaly - Extremities Exam Extremities exam: Present: pedal edema, tenderness, warm, radial pulses palpable and symmetrical. Absent: calf tenderness, cyanotic, normal capillary refill, normal inspection - Neurological Exam Neurological exam: Present: alert, oriented X3, no focal deficits. Absent: facial droop, speech deficit - Skin Skin exam: Present: dry, intact, normal color, warm. Absent: rash Internal Medicine: Result - Labs CBC & Chem 7: 02/13/17 03:53 02/13/17 03:53 Labs: Short CBC 02/13/17 Range/Units 03:53 WBC 4.8 (4.3-11.1) K/mcL Hgb 12.7 L (12.9-16.9) g/dL Hct 35.7 L (37.5-50.1) % Plt Count 135 L (140-400) K/mcL Neutrophils # 2.7 (1.6-8.9) K/mcL BMP 02/13/17 03:53 Sodium 141 Potassium 3.8 Chloride 109 Carbon Dioxide 23 BUN 10 Creatinine 1.03 Glucose 100 H Calcium 8.7 Liver Function 02/13/17 Range/Units 03:53 AST 69 H (5-34) Units/L ALT 66 H (0-55) Units/L - ABG Interpretation ABG results: PT/INR, D-dimer PT 10.1 Seconds (9.4-12.1) 02/13/17 03:53 - Impressions Impressions Guidance Needle Placement Ultrasound 02/13/17 00:00 IMPRESSION: No fluid collection seen on the ultrasound evaluation. Aspiration could not be performed. D/ / 02/13/2017 15:21:18 Cookie Mcfadden MD / rosa Interpreting Provider: Cookie Mcfadden MD Consult Discharge Plan - Plan Referrals: Keri De Santiago MD [Primary Care Provider] -
--- NOTE | 2017-02-13 20:26 | General Surgery Consult Note ---
Date of Encounter: 02/13/17 Time of Encounter: 20:01 History of Present Illness Consult date: 02/13/17 Requesting physician: Geetha Wahl History of present illness: 46 yo well known to me related to prior admission and treatment for acute right lower quadrant abdominal pain, 06/2016. Patient now hospitalized after developing severe pain, erythema and swelling right toes/foot,02/09/2017. The patient describes progressive pain and swelling with "red streaks' up the leg and right hip pain. S/p THR, 2012 due to acute vascular necrosis. On presentation to ED, patient underwent examination, foot and hip x-rays. CT right hip followed by MRI was completed, 02/12/2017. Findings include: intact appearing orthopedic hardware, no fractures or dislocations, no suspicious focal bony lesions, no bony erosions or destructive changes, no periosteal reaction. Minimal subcutaneous edema along the lateral aspects of the hip/ proximal thigh is noted but no focal fluid collections, radiopaque foreign bodies or soft tissue gas. The minimal subcutaneous edema prompted further examination with MRI. A 3 x 1.1 cm fluid collection within the right iliac is muscle is noted and appears to communicate with a small volume of fluid in the iliopsoas tendon sheath. Additionally, a small fluid collection deep to the iliotibial band measuring 2.3 x 2 x 0.9 cm adjacent to the greater trochanter of the right femur is also described. Significance of these findings will be deferred to orthopedics. I was asked to see the patient from a general surgical standpoint as the patient complained of lymphadenopathy. No lymphadenopathy was notable on the CT or MRI. Past medical history: Depression; acute intermittent porphyria, gout, kidney stones, paroxysmal SVT, avascular necrosis of the right hip Surgical history: Right total hip replacement, 2012; laparoscopic appendectomy, 06/26/16 Allergies: Propoxyphene, cefepime, erythromycin, morphine, codeine, metoclopramide, piperacillin and possibly tazobactam, ciprofloxacine (The patient tolerated Dilaudid during my care for the patient in June 2016) Medications: Citalopram 20 mg by mouth daily [place] 40 mg by mouth daily records also indicate 80 mg by mouth daily Previous use of hydrocodone with acetaminophen 10/325 one by mouth every 6 hours when necessary (prescribed 2016) Colchicine 0.6 mg by mouth daily Oxycodone with acetaminophen 5/325 one every 4 hours as needed for pain prescribed 02/11/17 Bactrim DS 1 by mouth twice a day prescribed 02/11/17 Physical examination obese age-appropriate male in quite a bit of distress related to her hip and right leg pain. Skin warm without obvious jaundice Persistent low-grade fever this date, 99.0-99.2; pulse 91 but as high as 103 ; respirations 16, blood pressure 151/91. PO2 on room air 95-99% Extremities: The right leg is erythematous with the right middle toe extremely tender, erythematous and swollen. No obvious lymphangitis noted. Minimal, subcentimeter, mobile, nontender lymphadenopathy in the right groin no significant adenopathy left groin Single mobile, subcentimeter, nontender lymph node left axilla. No right axillary lymph nodes. A PICC line present in the right upper extremity Lungs: Clear, no obvious abdominal pain with deep inspiration Cardiac: Regular rate regular rate, no appreciable murmurs Abdomen: Soft, nontender, active bowel sounds. No intra-abdominal masses. No rebound. Oropharynx: the patient has been complaining of intermittent sore throat, he has multiple white, vesicular lesions throughout the oropharynx. No significant cervical adenopathy detected. CT and MRI were personally reviewed with the radiology. While this imaging provided limited examinations of the abdomen and pelvis, there was no obvious intra-abdominal or pelvic pathology, no noted retroperitoneal lymphadenopathy. No significant bowel findings. Impression: right hip and leg pain of uncertain etiology. 3 phase bone scan pending. Recommendation: throat cultures ?viral/oral herpes, otherwise, nothing else to offer from General Surgical viewpoint, but will follow with you. Past Med Surg Social Fam HX - Past Medical History Medical history: kidney stones, SVT, other (Avascular necrosis right hip s/p right THR) Psychiatric history: no psych history - Past Surgical History Surgical History: appendectomy, cholecystectomy, hip replacement, other (Left foot great toe arthrotomy) - Social History Smoking Status: Never smoker Smokeless Tobacco Status: No Alcohol use: none Drug use: none - Family History Mother History Unknown: Yes Adopted: [place]: naomi Age: 74 Family Member Ethnicity: Non- Living Status: Still Living Hx Family Cardiac Disorders: Yes (htn) Hx Family Respiratory Disorders: No Hx Family Cancer: No Hx Family GI Disorders: No Hx Family Endocrine Disorder: Yes (hypothyroid) Hx Family Neuromuscular Disorders: No Hx Family Neurologic Disorders: No Hx Family HEENT Disorders: No Hx Family Autoimmune Disorders: No Father Family Member Ethnicity: Non- Living Status: Still Living Hx Family Cardiac Disorders: Yes (cardiac stent, htn) Hx Family Respiratory Disorders: Yes (sleep apnea) Hx Family Cancer: No Hx Family GI Disorders: No Hx Family Endocrine Disorder: Yes (DM type 2 insulin dependent) Hx Family Neuromuscular Disorders: No Hx Family Neurologic Disorders: No Hx Family HEENT Disorders: No Hx Family Autoimmune Disorders: No Medications and Allergies Febuxostat [Uloric] 40 mg PO DAILY 08/30/16 [History] Ondansetron ODT [Zofran ODT] 4 mg SL Q6HR #20 tab.rapdis 09/03/16 [Rx] Sertraline [Zoloft] 50 mg PO DAILY 02/12/17 [History] 3 Allergy/AdvReac Type Severity Reaction Status Date / Time cefepime Allergy Hives Verified 02/11/17 16:56 Erythromycin Base Allergy Hives Verified 02/11/17 16:56 morphine Allergy Hives Verified 02/11/17 16:56 piperacillin [From Zosyn] Allergy Hives Verified 02/11/17 16:56 propoxyphene Allergy Hives Verified 02/11/17 16:56 [From Darvocet-N] shellfish derived Allergy Anaphylaxis Verified 02/11/17 16:56 tazobactam [From Zosyn] Allergy Hives Verified 02/11/17 16:56 ciprofloxacin [From Cipro] AdvReac Hives Verified 02/11/17 16:56 metoclopramide [From Reglan] AdvReac Hives Verified 02/11/17 16:56 Review of Systems All systems PM: A 10-system review of systems was performed and is negative for pertinent findings except as documented above in the HPI. General Surgery Exam Initial Vital Signs Temp Pulse Resp BP Pulse Ox 99.4 F 91 18 159/100 99 02/11/17 16:56 02/11/17 16:56 02/11/17 16:56 02/11/17 16:56 02/11/17 16:56 Exam Initial Vital Signs Temp Pulse Resp BP Pulse Ox 99.4 F 91 18 159/100 99 02/11/17 16:56 02/11/17 16:56 02/11/17 16:56 02/11/17 16:56 02/11/17 16:56 Results - Labs 02/13/17 03:53 02/13/17 03:53 Abnormal lab results RBC 3.79 M/mcL (4.19-5.50) L 02/13/17 03:53 Hgb 12.7 g/dL (12.9-16.9) L 02/13/17 03:53 Hct 35.7 % (37.5-50.1) L 02/13/17 03:53 MCH 33.5 pg (28.0-33.3) H 02/13/17 03:53 MCHC 35.6 g/dL (31.6-35.5) H 02/13/17 03:53 Plt Count 135 K/mcL (140-400) L 02/13/17 03:53 Glucose 100 mg/dL (70-99) H 02/13/17 03:53 Uric Acid 7.9 mg/dL (3.5-7.2) H 02/12/17 05:04 Iron 49 mcg/dL (65-175) L 02/13/17 13:13 % Saturation 15 % (20-55) L 02/13/17 13:13 AST 69 Units/L (5-34) H 02/13/17 03:53 ALT 66 Units/L (0-55) H 02/13/17 03:53 Diabetes panel 02/13/17 Range/Units 03:53 Sodium 141 (136-145) mEq/L Potassium 3.8 (3.5-4.5) mEq/L Chloride 109 (98-109) mEq/L Carbon Dioxide 23 (19-29) mEq/L BUN 10 (8-26) mg/dL Creatinine 1.03 (0.72-1.25) mg/dL Glucose 100 H (70-99) mg/dL Calcium 8.7 (8.6-10.8) mg/dL AST 69 H (5-34) Units/L ALT 66 H (0-55) Units/L Calcium panel 02/13/17 Range/Units 03:53 Calcium 8.7 (8.6-10.8) mg/dL Pituitary panel 02/13/17 Range/Units 03:53 Sodium 141 (136-145) mEq/L Potassium 3.8 (3.5-4.5) mEq/L Chloride 109 (98-109) mEq/L Carbon Dioxide 23 (19-29) mEq/L BUN 10 (8-26) mg/dL Creatinine 1.03 (0.72-1.25) mg/dL Glucose 100 H (70-99) mg/dL Calcium 8.7 (8.6-10.8) mg/dL Adrenal panel 02/13/17 Range/Units 03:53 Sodium 141 (136-145) mEq/L Potassium 3.8 (3.5-4.5) mEq/L Chloride 109 (98-109) mEq/L Carbon Dioxide 23 (19-29) mEq/L BUN 10 (8-26) mg/dL Creatinine 1.03 (0.72-1.25) mg/dL Glucose 100 H (70-99) mg/dL Calcium 8.7 (8.6-10.8) mg/dL AST 69 H (5-34) Units/L ALT 66 H (0-55) Units/L All other labs normal. Consult Discharge Plan - Plan Referrals: Keri De Santiago MD [Primary Care Provider] -
[2017-02-14] MEDS: Ampicillin/Sulbactam 3,000 MG in 0.9 % Sodium Chloride Mini Bag 100 ML IVPB SCH ×3 (01:04→14:44)
[2017-02-14] MEDS: Ketorolac 30 MG/ML VIAL IVP PRN (01:05)
[2017-02-14] MEDS: *HR* HYDROmorphone (PF) 1 MG/ML SYRINGE IVP PRN ×2 (02:42→08:50)
[2017-02-14 03:46] LABS: BUN/Creatinine Ratio 9 (6-26); Blood Urea Nitrogen 11 mg/dL (8-26); Calcium 8.7 mg/dL (8.6-10.8); Carbon Dioxide 25 mEq/L (19-29); Chloride 107 mEq/L (98-109); Glucose 86 mg/dL (70-99); Osmolality,Calculated 291 (280-300); Potassium 3.7 mEq/L (3.5-4.5); Sodium 141 mEq/L (136-145); eGFR For African Americans > 60 (> 60); eGFR For Non-African Americans > 60 (> 60)
[2017-02-14 03:51] LABS: Basophils % 0.5 %; Eosinophils # 0.2 K/mcL (0.0-0.6); Immature Granulocytes % 0.3 % (0-4); Lymphocytes # 1.8 K/mcL (0.6-4.6); Lymphocytes % 30.9 %; Mean Corpuscular HGB Conc 36.1 g/dL (31.6-35.5); Mean Corpuscular Hemoglobin 33.5 pg (28.0-33.3); Mean Corpuscular Volume 92.8 fL (83.0-100.0); Mean Platelet Volume 10.1 fL (9.4-12.4); Monocytes # 0.5 K/mcL (0.0-1.3); Monocytes % 8.5 %; Neutrophils # 3.2 K/mcL (1.6-8.9); Red Blood Count 3.88 M/mcL (4.19-5.50); Red Cell Distribution Width 12.7 % (11.5-14.5); Segmented Neutrophils % 55.8 %
[2017-02-14 05:22] LABS: Platelet Count 171 K/mcL (140-400)
--- NOTE | 2017-02-14 07:45 | Orthopedics Progress Note ---
Date of Encounter: 02/14/17 Time of Encounter: 07:43 Subjective Principal diagnosis: Painful toe #2 right foot Interval history: Patient evaluated for pain in right hip. Patient seen in nuclear medicine while getting bone scan. Patient admitted with toe infection, developed hip pain recently. Patient status post total hip replacement in the past. On exam no erythema no significant swelling virtually pain-free motion of the right hip. CT scan and MRI were reviewed and show some minimal fluid collections but nothing concerning. Patient x-rays reviewed show components well aligned and well fixed. The patient is scheduled for a right hip aspiration today, we will also await the findings on the bone scan. Patient also being worked up for multiple myeloma. Patient was evaluated by general surgery Dr. Torres for groin adenopathy. Consult reviewed no further treatment required Objective Vital signs: Vital Signs Temp Pulse Resp BP Pulse Ox 02/14/17 07:31 97.8 F 81 17 136/94 95 02/14/17 04:29 99.2 F 91 18 141/91 96 02/13/17 23:36 156/96 02/13/17 23:31 98.3 F 96 18 159/103 97 02/13/17 18:56 99.2 F 91 16 151/91 95 02/13/17 16:17 99.2 F 94 16 151/95 99 02/13/17 15:43 99.0 F 103 18 160/103 97 02/13/17 15:29 102 164/124 02/13/17 12:07 98.6 F 84 16 162/102 95 Intake and Output 02/13/17 02/13/17 02/14/17 15:59 23:59 07:59 Intake Total 450 / 450 340 / 340 200 / 200 Balance 450 / 450 340 / 340 200 / 200 Intake: IV Fluids 450 / 450 100 / 100 200 / 200 Unasyn 3,000 MG In 0.9 % Sodium 200 / 200 100 / 100 100 / 100 Chloride (Mini-Bag +) 100 ML @ 200 mls/hr IVPB Q6HR [facility] Rx#: [id number] Vancocin 1,500 MG In Dextrose 5 250 / 250 100 / 100 % 250 ML @ 166.67 mls/hr IVPB Q12H [facility] Rx#:[id number] Oral 240 / 240 Other: Meal NPO Dinner Percent of Meal Consumed 90% # Voids 1 2 # Bowel Movements 1 Weight 100.062 kg Patient Weight 02/14/17 23:59 Weight 100.062 kg - Labs CBC & BMP: 02/14/17 02:38 02/14/17 02:38 Labs: Abnormal lab results RBC 3.88 M/mcL (4.19-5.50) L 02/14/17 02:38 Hct 36.0 % (37.5-50.1) L 02/14/17 02:38 MCH 33.5 pg (28.0-33.3) H 02/14/17 02:38 MCHC 36.1 g/dL (31.6-35.5) H 02/14/17 02:38 Uric Acid 7.9 mg/dL (3.5-7.2) H 02/12/17 05:04 Iron 49 mcg/dL (65-175) L 02/13/17 13:13 % Saturation 15 % (20-55) L 02/13/17 13:13 AST 69 Units/L (5-34) H 02/13/17 03:53 ALT 66 Units/L (0-55) H 02/13/17 03:53 Consult Discharge Plan - Plan Referrals: Keri De Santiago MD [Primary Care Provider] -
[2017-02-14] MEDS: *HR* Promethazine 25 MG/ML VIAL IVP PRN (08:50)
[2017-02-14] MEDS: ULORIC 80MG PO SCH (08:52)
[2017-02-14] MEDS: ULORIC 40MG PO SCH (08:52)
[2017-02-14] MEDS: Magic Mouthwash 10 ML UD Cup PO PRN (09:16)
[2017-02-14] MEDS ORDERED: *HR* FentaNYL (PF) 100 MCG/2 ML VIAL IVP PRN ×2 (10:30→10:31)
[2017-02-14] MEDS ORDERED: *HR* Midazolam HCl 2 MG/2 ML VIAL IVP PRN ×2 (10:30→10:31)
[2017-02-14] MEDS ORDERED: 0.9 % Sodium Chloride 500 ML ONE (10:35)
--- NOTE | 2017-02-14 10:53 | Infectious Disease Progress No ---
Date of Encounter: 02/14/17 Time of Encounter: 10:51 - Assessment and Plan (1) Cellulitis of foot Current Visit: Yes Status: Acute Cellulitis vs. gout flare vs. other. Mildly improved since exam yesterday. Uric acid mildly elevated at 7.9. Location: Right foot distal second toe and right dorsal foot. Foot x-ray negative for acute bony abnormality, but does show some soft tissue swelling. The patient has no SIRS criteria. ESR and CRP are normal. Blood cultures drawn 02/11/17 are NGTD x 2 sets. Podiatry consulted and following. Await further recommendations. Continue Vancomycin IV for now (day 4). Pharmacy to dose. Goal trough ~15. Continue Unasyn 3 grams IV Q6H (day 4). Consider covering for both infection and gout flare, but will defer the ordering of steroids to the primary and podiatry teams. Duration of treatment depends on the clinical picture. Monitor renal function and for drug toxicity and dose-adjust antibiotics. (2) Right hip pain Current Visit: Yes Status: Acute Etiology not entirely clear, but low index of suspicion for infectious etiology. Imaging not conclusive for infection, but the MRI showed fluid decompressing into the iliopsoas tendon sheath and iliacus muscle. Additionally, a small seroma was noted adjacent to the surgical scar. IR consulted. States seroma is too small to aspirate, but will attempt aspiration of the hip joint later today. Please send fluid for cell count with differential, protein, LDH, and culture (aerobic and anaerobic). Ortho has been consulted. Recommended bone scan, which is pending. Continue antibiotics as above for now. Pain management per the primary team. (3) Lymphadenopathy Current Visit: Yes Status: Acute Location: Right groin. Very small, mobile lymph palpable lymph nodes noted to the right inguinal area this morning. No lymphadenopathy noted on imaging. General surgery consulted but no indication for surgical intervention at this time. Continue to monitor. (4) Oral lesion Current Visit: Yes Status: Acute Etiology unclear, but clinically looks like canker sores. Continue magic mouthwash for now. (5) Pain of toe of right foot Current Visit: Yes Status: Acute (6) AIP (acute intermittent porphyria) Current Visit: Yes Status: Chronic (7) Diarrhea Current Visit: Yes Status: Resolved Qualifiers: Diarrhea type: unspecified type Qualified Code(s): R19.7 - Diarrhea, unspecified - Subjective Interval history: Patient seen and examined. No acute events noted overnight. The patient is awaiting his second half of his bone scan this morning. The pain in his toe is a little bit better, but still continues to complain of pain in the right hip that is unchanged. States he still feels fatigued and overall generally unwell. He denies any fevers or chills or rigors. He denies any chest pain, shortness of breath, or cough. He does report some right upper quadrant abdominal pain, but no nausea or vomiting or diarrhea. He reports a bowel movement this morning. He denies any urinary complaints. He states the pain in his foot continues to radiate up the forefoot to the midfoot, but denies any ankle, calf , or knee pain today. Infect Dis PN-Objective Data - Labs CBC & Chem 7: 02/14/17 02:38 02/14/17 02:38 Labs: Laboratory Results - last 24 hr 02/13/17 02/13/17 02/13/17 13:13 13:13 22:30 WBC RBC Hgb Hct MCV MCH MCHC RDW Plt Count MPV Immature Gran % Seg Neutrophils % Lymphocytes % Monocytes % Eosinophils % Basophils % Neutrophils # Lymphocytes # Monocytes # Eosinophils # Basophils # Sodium Potassium Chloride Carbon Dioxide BUN Creatinine Est GFR ( Amer) Est GFR (Non-Af Amer) BUN/Creatinine Ratio Glucose Calculated Osmolality Calcium Iron 49 L % Saturation 15 L Transferrin 241 Vitamin B12 370 Folate 10.5 Stool Occult Blood Negative 02/14/17 02/14/17 02:38 02:38 WBC 5.8 RBC 3.88 L Hgb 13.0 Hct 36.0 L MCV 92.8 MCH 33.5 H MCHC 36.1 H RDW 12.7 Plt Count 171 MPV 10.1 Immature Gran % 0.3 Seg Neutrophils % 55.8 Lymphocytes % 30.9 Monocytes % 8.5 Eosinophils % 4.0 Basophils % 0.5 Neutrophils # 3.2 Lymphocytes # 1.8 Monocytes # 0.5 Eosinophils # 0.2 Basophils # 0.0 Sodium 141 Potassium 3.7 Chloride 107 Carbon Dioxide 25 BUN 11 Creatinine 1.19 Est GFR ( Amer) > 60 Est GFR (Non-Af Amer) > 60 BUN/Creatinine Ratio 9 Glucose 86 Calculated Osmolality 291 Calcium 8.7 Iron % Saturation Transferrin Vitamin B12 Folate Stool Occult Blood Cultures: Serology 02/13/17 Range/Units 22:30 Stool Occult Blood Negative (Negative) - Impressions Impressions Guidance Needle Placement Ultrasound 02/13/17 00:00 IMPRESSION: No fluid collection seen on the ultrasound evaluation. Aspiration could not be performed. D/ / 02/13/2017 15:21:18 Cookie Mcfadden MD / rosa Interpreting Provider: Cookie Mcfadden MD Exam - Constitutional Vitals: Temp Pulse Resp BP Pulse Ox 97.8 F 77 12 154/92 100 02/14/17 07:31 02/14/17 10:44 02/14/17 10:44 02/14/17 10:44 02/14/17 10:44 General appearance: average body habitus, cooperative, no acute distress - Head Head exam: Present: atraumatic, normal inspection, normocephalic - Eye Eye exam: Present: EOMI, normal appearance, PERRL Pupils: Present: normal accommodation - ENT ENT exam: Present: mucous membranes moist Additional comments: Oral lesions noted, consistent with canker sores. - Neck Neck exam: Present: normal inspection. Absent: lymphadenopathy - Respiratory Respiratory exam: Present: CTAB. Absent: rales, respiratory distress, rhonchi, wheezes - Cardiovascular Cardiovascular exam: Present: RRR, +S1, +S2 - GI/Abdominal GI/Abdominal exam: Present: normal bowel sounds, soft, tenderness (RUQ, epigastric). Absent: distended - Extremities Exam Extremities exam: Present: pedal edema (1+ RLE, non-pitting), tenderness (Right foot, second toe; right anterior and lateral hip/IT band). Absent: joint swelling Additional comments: Right hip surgical scar well-healed without redness, warmth, or tenderness. Abduction of the right hip limited due to pain. Tenderness noted with palpation of the right groin to the iliac crest and IT band. No tenderness posteriorly. Two small, mobile inguinal lymph nodes noted in the right groin that are non- tender. Right foot distal second toe with erythema to the dorsal aspect, improved plantarly. Remains tender, but improved. No fluctuance. Trace erythema noted to the dorsal aspect of the right forefoot. - Expanded Lower Extremity Exam Foot/Toe exam: Present: erythema (Right foot, distal second toe, improved since previous exam.) 1 - Erythema, tenderness, no warmth or fluctuance. 1 - Tenderness, no fluctuance. - Neurological Exam Neurological exam: Present: alert, oriented X3, no focal deficits - Psychiatric Psychiatric exam: Present: normal affect, normal mood - Skin Skin exam: Present: dry, intact, normal color, warm Consult Discharge Plan - Plan Referrals: Keri De Santiago MD [Primary Care Provider] -
[2017-02-14 10:57] VITALS: BP 148/95
[2017-02-14 12:18] LABS: C-Reactive Protein 51 mg/L (Less than 5)
--- NOTE | 2017-02-14 12:18 | Orthopedics Progress Note ---
Date of Encounter: 02/14/17 Time of Encounter: 12:17 Subjective Principal diagnosis: Painful toe #2 right foot Interval history: Bone scan reviewed with radiologist read as normal with relation to the right hip. I are unable to aspirate any fluid from the right hip joint. Patient's physical exam today was benign for infection. Low suspicion of right hip infection. No orthopedic surgical intervention needed at this time. Objective Vital signs: Vital Signs Temp Pulse Resp BP Pulse Ox 02/14/17 10:54 84 14 148/95 100 02/14/17 10:49 78 16 143/102 98 02/14/17 10:44 77 12 154/92 100 02/14/17 07:31 97.8 F 81 17 136/94 95 02/14/17 04:29 99.2 F 91 18 141/91 96 02/13/17 23:36 156/96 02/13/17 23:31 98.3 F 96 18 159/103 97 02/13/17 18:56 99.2 F 91 16 151/91 95 02/13/17 16:17 99.2 F 94 16 151/95 99 02/13/17 15:43 99.0 F 103 18 160/103 97 02/13/17 15:29 102 164/124 Intake and Output 02/13/17 02/14/17 02/14/17 23:59 07:59 15:59 Intake Total 340 / 340 200 / 200 Balance 340 / 340 200 / 200 Intake: IV Fluids 100 / 100 200 / 200 Unasyn 3,000 MG In 0.9 % Sodium 100 / 100 100 / 100 Chloride (Mini-Bag +) 100 ML @ 200 mls/hr IVPB Q6HR [facility] Rx#: [id number] Vancocin 1,500 MG In Dextrose 5 100 / 100 % 250 ML @ 166.67 mls/hr IVPB Q12H [facility] Rx#:[id number] Oral 240 / 240 Other: Meal Dinner Percent of Meal Consumed 90% # Voids 1 2 # Bowel Movements 1 Weight 100.062 kg Patient Weight 02/14/17 23:59 Weight 100.062 kg - Labs CBC & BMP: 02/14/17 02:38 02/14/17 02:38 Labs: Abnormal lab results RBC 3.88 M/mcL (4.19-5.50) L 02/14/17 02:38 Hct 36.0 % (37.5-50.1) L 02/14/17 02:38 MCH 33.5 pg (28.0-33.3) H 02/14/17 02:38 MCHC 36.1 g/dL (31.6-35.5) H 02/14/17 02:38 Uric Acid 7.9 mg/dL (3.5-7.2) H 02/12/17 05:04 Iron 49 mcg/dL (65-175) L 02/13/17 13:13 % Saturation 15 % (20-55) L 02/13/17 13:13 AST 69 Units/L (5-34) H 02/13/17 03:53 ALT 66 Units/L (0-55) H 02/13/17 03:53 Consult Discharge Plan - Plan Referrals: Keri De Santiago MD [Primary Care Provider] -
[2017-02-14] MEDS: Vancomycin 1,500 MG in D5% in Water 250 ML IVPB SCH (12:26)
--- NOTE | 2017-02-14 15:20 | Discharge Summary ---
Date of Encounter: 02/14/17 Time of Encounter: 11:00 - Discharge Diagnosis (1) Gout attack Priority: Primary Status: Acute Qualifiers: Gout site: foot Laterality: left Qualified Code(s): M10.9 - Gout, unspecified - Discharge Medications Prescriptions: HYDROcodone/Acet 10/325 mg [[place] 10-325 mg] 1 tab PO BID PRN #10 tab PRN Reason: Pain Home Medications: Febuxostat [Uloric] 40 mg PO DAILY 08/30/16 [History] Ondansetron ODT [Zofran ODT] 4 mg SL Q6HR #20 tab.rapdis 09/03/16 [Rx] Sertraline [Zoloft] 50 mg PO DAILY 02/12/17 [History] HYDROcodone/Acet 10/325 mg [[place] 10-325 mg] 1 tab PO BID PRN #10 tab 02/14/17 [ Rx] Allergies/Adverse Reactions: 3 Allergy/AdvReac Type Severity Reaction Status Date / Time cefepime Allergy Hives Verified 02/11/17 16:56 Erythromycin Base Allergy Hives Verified 02/11/17 16:56 morphine Allergy Hives Verified 02/11/17 16:56 piperacillin [From Zosyn] Allergy Hives Verified 02/11/17 16:56 propoxyphene Allergy Hives Verified 02/11/17 16:56 [From Darvocet-N] shellfish derived Allergy Anaphylaxis Verified 02/11/17 16:56 tazobactam [From Zosyn] Allergy Hives Verified 02/11/17 16:56 ciprofloxacin [From Cipro] AdvReac Hives Verified 02/11/17 16:56 metoclopramide [From Reglan] AdvReac Hives Verified 02/11/17 16:56 Procedures/tests Complete & Pending: Procedures Performed prior 72 hours Category Date Time Status CT hip RT wo con [CT] Routine Cat Scan 02/12/17 09:30 Completed IR asp puncture [IR] Routine Exams 02/14/17 Taken NM bone 3 phase [NM] Routine Exams 02/13/17 17:57 Completed IR us guide needle place [IR] Routine IR 02/13/17 Completed MR hip RT wo con [MR] Routine MRI 02/12/17 10:58 Completed EV venous imaging LE RT Routine Y 02/12/17 08:22 Completed Date of admission: 02/11/17 23:25 Primary care physician: Keri De Santiago Consults: 02/12/17 08:24 Consult to Orthopedic Surgery [CONS] Routine Consulting Provider: Zbigniew Caldwell Reason for Consult: R 2nd toe cellulitis, pain Time Notified: 08:25 Call Completed: Yes 02/12/17 18:26 Consult to Orthopedic Surgery [CONS] Routine Consulting Provider: [facility] Reason for Consult: abnormal MRI, discussed with Dr. Piper Time Notified: 18:27 Call Completed: Yes 02/13/17 07:19 Consult to Interventional Radiology [CONS] Routine Consulting Provider: Radiology Interventional [facility] Reason for Consult: r hip aspiration Time Notified: 07:19 Call Completed: Yes 02/13/17 11:05 Consult to Infectious Diseases [CONS] Routine Consulting Provider: Infectious Disease Josephine Reason for Consult: cellulitis right 2nd toe, redness, edema increasing to right foot. L hip aspiration today. Pt with "sores" in oral mucosa overnight. Pt getting Unasyn and Vanco. Podiatry is on board. Time Notified: 11:09 Call Completed: Yes 02/13/17 17:57 Consult to Physician [CONS] Routine Consulting Provider: Jeffrey Torres Reason for Consult: Patient with unprovoked right hip pain with fluid collections and swollen lymph nodes as well as patient concern for multiple myeloma Time Notified: 18:03 Call Completed: Yes 02/13/17 18:12 Consult to Interventional Radiology [CONS] Routine Consulting Provider: Radiology [facility] Reason for Consult: Right hip pain with fluid on MRI - right hip joint arthrocentesis. Time Notified: 18:13 Call Completed: Yes - Patient Status Disposition: Home, Self-Care Condition: Fair - Discharge Instructions Follow Up With: Keri De Santiago MD [Primary Care Provider] - Hospital course: Patient is a 46 year old male with a past medical history significant for acute intermittent porphyria and gout who presented to the ER on 02/11/17 with left toe and right hip pain. Patient reported that his symptoms of throbbing/achy/stabbing pain started approximately 2 days prior to admission. He also reported associated swelling and redness of the toe. Patient rated the severity of his pain a 10 out of 10 and also described intermittent burning/stabbing pain that radiated up the proximal foot. In addition, patient also reported of fever/chills that started the day of admission. He denied toe trauma. Patient thought that he might of had a gout flare-up and tried to see his safety specialist but could not get in so he came to the ER. Patient was admitted to the medical floor for further workup. During patients hospital stay, podiatry was consulted and suspected patients toe pain secondary to acute gouty arthritis. He was not suspected to have an infection therefore IV antibiotics were discontinued. Recommendations for patient to be discharged to take colchicine. Orthopedics was also consulted for evaluation of right hip pain and no signs of infection was identified. Patient will be discharged to follow-up a safety specialist. - Time Spent with Patient Total time spent providing and/or coordinating discharge services: - Constitutional Vitals: Temp Pulse Resp BP Pulse Ox 97.8 F 84 14 148/95 100 02/14/17 07:31 02/14/17 10:54 02/14/17 10:54 02/14/17 10:54 02/14/17 10:54 General appearance: Present: cooperative, A&O X 3, pleasant, no acute distress, answers questions appropriately - Respiratory Respiratory exam: Present: CTAB. Absent: accessory muscle use, rales, rhonchi, wheezes - Cardiovascular Cardiovascular exam: Present: RRR, +S1, +S2. Absent: diastolic murmur, gallop, rubs, systolic murmur - Expanded Lower Extremities Exam Foot/Toe exam: Present: erythema (Decreased erythema)
[2017-02-14] MEDS ORDERED: Aminoglycoside Consult 1 EACH MC ONE (16:05)
--- NOTE | 2017-02-14 16:34 | IR Procedure Note ---
Date of procedure: 02/14/17 Consent Obtained: Written consent Timeout: Correct patient and procedure verified, Correct site verified, Time out performed, Skin prep completed Local anesthetic: Lidocaine 1% Indications: Right hip prothesis, concern for infection Procedure Performed: Hip aspiration Site/Technique: 22g needle placed in several areas within hip joint over the hardware Results/Findings: Minimal fluid obtained, lightly serosanguinous Estimated blood loss (cc): 1 Complications: None; Tolerated procedure well Post Procedure Treatment Plan: Monitoring on the floor.
[2017-02-16 02:01] LABS: Kappa Qnt Free Light Chains 1.6 mg/dL (0.33-1.94); Lambda Qnt Free Light Chains 1.66 mg/dL (0.57-2.63)
[2017-02-16 03:40] LABS: Alpha 2 Globulin (PEP) 0.71 g/dL (0.48-1.05); Beta Globulin (PEP) 0.94 g/dL (0.48-1.10)
[2017-02-17 09:58] LABS: IFE Reflexed NOT DONE
== END 2017-02-14 16:06 | disposition home or self-care (01) ==
LOC: EMEROO 16:49 → 3BNU 16:49 → SUATTDRO 23:25 → 3BNU 23:45
PROVIDERS: ADMIT Internal Medicine; ATTEND Hospitalist
PROC: IRFLUID (2017-02-14 12:00)

== ENCOUNTER 2020-04-04 08:13 | Observation (INO) ==
[2020-04-04] MEDS ORDERED: Aspirin 325 MG TABLET PO ONE (08:23)
[2020-04-04] MEDS: Nitroglycerin 0.4 MG TAB.SUBL SL PRN ×4 (08:42→15:37)
[2020-04-04] MEDS ORDERED: Ondansetron 4 MG/2 ML VIAL IVP ONE (08:46)
[2020-04-04] MEDS ORDERED: Ondansetron 4 MG/2 ML VIAL ONE (08:47)
[2020-04-04 08:59] LABS: Basophils % 0.7 %; Eosinophils # 0.2 K/mcL (0.0-0.6); Eosinophils % 3.6 %; Hematocrit 42.2 % (37.5-50.1); Hemoglobin 15.2 g/dL (12.9-16.9); Immature Granulocytes % 0.2 % (0-4); Lymphocytes # 1.5 K/mcL (0.6-4.6); Mean Corpuscular Hemoglobin 32.8 pg (28.0-33.3); Mean Corpuscular Volume 91.1 fL (83.0-100.0); Monocytes # 0.4 K/mcL (0.0-1.3); Monocytes % 9.8 %; Neutrophils # 2.3 K/mcL (1.6-8.9); Platelet Count 106 K/mcL (140-400); Red Blood Count 4.63 M/mcL (4.19-5.50); Red Cell Distribution Width 13.6 % (11.5-14.5); Segmented Neutrophils % 52.7 %; White Blood Count 4.4 K/mcL (4.3-11.1)
[2020-04-04 09:09] LABS: Prothrombin Time 11.8 Seconds (9.4-12.1)
[2020-04-04 09:19] LABS: Alanine Aminotransferase 43 Units/L (7-52); Albumin 4.4 g/dL (3.5-5.7); Albumin/Globulin Ratio 1.5 (1.1-2.2); Alkaline Phosphatase 87 Units/L (34-104); Aspartate Amino Transferase 58 Units/L (13-39); BUN/Creatinine Ratio 10 (6-26); Bilirubin,Total 1.7 mg/dL (0.3-1.0); Blood Urea Nitrogen 13 mg/dL (6-20); Calcium 9.2 mg/dL (8.6-10.3); Carbon Dioxide 25 mEq/L (23-29); Chloride 105 mEq/L (98-107); Globulin 2.9 g/dL (2.4-3.5); Glucose 106 mg/dL (70-105); Osmolality,Calculated 291 (280-300); Potassium 3.2 mEq/L (3.5-5.1); Sodium 140 mEq/L (136-145); Total Protein 7.3 g/dL (6.4-8.9); Troponin I < 0.03 ng/mL (< 0.04); eGFR For African Americans > 60 (> 60); eGFR For Non-African Americans 59 (> 60)
[2020-04-04] MEDS ORDERED: Isovue-370 500 ML BOTTLE IVP ONE (09:32)
[2020-04-04] MEDS ORDERED: *HR* HYDROmorphone (PF) 1 MG/ML SYRINGE IVP ONE (09:48)
[2020-04-04] MEDS ORDERED: Naloxone 0.4 MG/ML INJ IVP PRN (13:15)
[2020-04-04] MEDS ORDERED: Potassium Chloride Elixir 20 MEQ/15 ML UDC PO ONE (13:17)
[2020-04-04] MEDS: Famotidine 20 MG TABLET PO SCH ×2 (15:27→21:23)
[2020-04-04] MEDS: *HR* Heparin 5,000 UNIT/ML VIAL SQ SCH ×2 (15:28→21:23)
[2020-04-04] MEDS ORDERED: Acetaminophen 325 MG TABLET PO ONE (16:07)
[2020-04-04] MEDS ORDERED: Morphine Sulfate 2 MG/ML SYRINGE IVP ONE (16:18)
[2020-04-04] MEDS: *HR* OxyCODONE Immed Rel 5 MG TABLET PO PRN (19:33)
[2020-04-04] MEDS: Ondansetron 4 MG/2 ML VIAL IVP PRN (21:23)
[2020-04-05] MEDS: *HR* OxyCODONE Immed Rel 5 MG TABLET PO PRN (01:29)
[2020-04-05] MEDS: *HR* Heparin 5,000 UNIT/ML VIAL SQ SCH ×2 (05:20→13:55)
[2020-04-05] MEDS ORDERED: Regadenoson 0.4 MG/5 ML SYRINGE IVP ONE (06:17)
[2020-04-05 07:52] LABS: Hematocrit 38.3 % (37.5-50.1); Mean Corpuscular Hemoglobin 33.3 pg (28.0-33.3); Mean Corpuscular Volume 95.3 fL (83.0-100.0); Mean Platelet Volume 9.5 fL (9.4-12.4); Platelet Count 101 K/mcL (140-400); Red Blood Count 4.02 M/mcL (4.19-5.50); Red Cell Distribution Width 13.4 % (11.5-14.5); White Blood Count 4.1 K/mcL (4.3-11.1)
[2020-04-05 07:53] LABS: BUN/Creatinine Ratio 14 (6-26); Blood Urea Nitrogen 17 mg/dL (6-20); Calcium 8.5 mg/dL (8.6-10.3); Carbon Dioxide 24 mEq/L (23-29); Chloride 108 mEq/L (98-107); Glucose 103 mg/dL (70-105); Osmolality,Calculated 292 (280-300); Phosphorous 3.6 mg/dL (2.7-4.5); Potassium 3.5 mEq/L (3.5-5.1); Sodium 140 mEq/L (136-145); eGFR For African Americans > 60 (> 60); eGFR For Non-African Americans > 60 (> 60)
[2020-04-05 08:02] LABS: Hemoglobin 13.4 g/dL (12.9-16.9)
[2020-04-05 08:24] LABS: Hepatitis B Surface Antigen Nonreactive (Nonreactive)
[2020-04-05 08:53] LABS: Hepatitis C Virus Antibody Nonreactive (Nonreactive)
[2020-04-05 08:54] LABS: Alanine Aminotransferase 39 Units/L (7-52); Albumin 3.7 g/dL (3.5-5.7); Albumin/Globulin Ratio 1.5 (1.1-2.2); Alkaline Phosphatase 70 Units/L (34-104); Aspartate Amino Transferase 51 Units/L (13-39); Bilirubin,Direct 0.1 mg/dL (0.0-0.2); Bilirubin,Indirect 0.5 mg/dL (0.0-1.0); Bilirubin,Total 0.6 mg/dL (0.3-1.0); Globulin 2.4 g/dL (2.4-3.5); Total Protein 6.1 g/dL (6.4-8.9)
[2020-04-05 08:55] LABS: Hepatitis B Core IgM Nonreactive (Nonreactive)
[2020-04-05 08:56] LABS: Hepatitis A Antibody IgM Nonreactive (Nonreactive)
[2020-04-05] MEDS ORDERED: Metoprolol XL (24 HR) Succ 50 MG TAB.ER.24H PO SCH (09:00)
[2020-04-05] MEDS ORDERED: hydroCHLOROthiazide 25 MG TABLET PO SCH (09:00)
[2020-04-05] MEDS ORDERED: Aspirin Enteric Coated 81 MG Tablet PO SCH (09:00)
[2020-04-05] MEDS: Gabapentin 300 MG CAPSULE PO SCH ×2 (09:43→16:45)
[2020-04-05] MEDS: Famotidine 20 MG TABLET PO SCH (09:43)
[2020-04-05] MEDS: Ondansetron 4 MG/2 ML VIAL IVP PRN (09:46)
[2020-04-05] MEDS ORDERED: Perflutren Lipid Microsphere 1.3 ML in 0.9 % Sodium Chloride 8.7 ML IVP PRN (09:55)
[2020-04-05] MEDS ORDERED: *HR* Heparin 10,000 UNIT/10 ML VIAL ONE (12:53)
[2020-04-05] MEDS ORDERED: 0.9 % Sodium Chloride 1,000 ML ONE (12:53)
[2020-04-05] MEDS ORDERED: Heparin 1,000 UNITS/500 mL 500 ML ONE (12:53)
[2020-04-05] MEDS ORDERED: Nitroglycerin 1,000 MCG/10 ML VIAL IV ONE (12:53)
[2020-04-05] MEDS ORDERED: ISOVUE-370 200 ML INFUS..BTL ONE (12:53)
[2020-04-05] MEDS ORDERED: *HR* FentaNYL (PF) 100 MCG/2 ML VIAL ONE (14:19)
[2020-04-05] MEDS ORDERED: *HR* Midazolam HCl 2 MG/2 ML VIAL ONE (14:19)
[2020-04-05] MEDS ORDERED: *HR* Dextrose 50 % in Water (Vial) 50 ML VIAL ONE (14:25)
[2020-04-05] MEDS ORDERED: amLODIPine 5 MG TABLET PO SCH (14:30)
[2020-04-05 17:02] VITALS: BP 142/84
== END 2020-04-05 18:02 | disposition home or self-care (01) ==
LOC: EMEROOARM 08:13 → 3BNU 08:13 → SUATTDRO 13:18 → 3BNU 15:39
PROVIDERS: ADMIT Internal Medicine; ATTEND Internal Medicine

== ENCOUNTER 2021-11-20 12:57 | Inpatient (IN) ==
[2021-11-20] MEDS ORDERED: levoFLOXacin 750 MG/150 ML 750 MG/150 ML BAG IVPB ONE (13:50)
[2021-11-20] MEDS ORDERED: Ondansetron 4 MG/2 ML VIAL IVP ONE (13:50)
[2021-11-20] MEDS ORDERED: *HR* HYDROmorphone (PF) 1 MG/ML SYRINGE IVP ONE (13:50)
[2021-11-20] MEDS ORDERED: Clindamycin 600 MG/50 ML 600 MG/50 ML IV.SOLN IVPB ONE (13:51)
[2021-11-20] MEDS ORDERED: Ketorolac 30 MG/ML VIAL IVP ONE (14:14)
[2021-11-20] MEDS: Ringers Solution, Lactated 1,000 ML IVC SCH ×2 (14:42→17:05)
[2021-11-20 14:50] LABS: Basophils % 0.3 %; Eosinophils # 0.1 K/mcL (0.0-0.6); Hematocrit 34.2 % (37.5-50.1); Hemoglobin 11.9 g/dL (12.9-16.9); Immature Granulocytes % 0.5 % (0-4); Lymphocytes # 0.8 K/mcL (0.6-4.6); Lymphocytes % 13.7 %; Mean Corpuscular HGB Conc 34.8 g/dL (31.6-35.5); Mean Corpuscular Hemoglobin 32.9 pg (28.0-33.3); Mean Corpuscular Volume 94.5 fL (83.0-100.0); Mean Platelet Volume 9.7 fL (9.4-12.4); Monocytes # 0.5 K/mcL (0.0-1.3); Monocytes % 7.8 %; Neutrophils # 4.5 K/mcL (1.6-8.9); Platelet Count 124 K/mcL (140-400); Red Blood Count 3.62 M/mcL (4.19-5.50); Red Cell Distribution Width 14.2 % (11.5-14.5); Segmented Neutrophils % 76.7 %; White Blood Count 5.9 K/mcL (4.3-11.1)
[2021-11-20 14:58] LABS: INR 1.1; Prothrombin Time 12.5 Seconds (9.4-12.1)
[2021-11-20 15:00] LABS: Activated Partial Thrombo Time 32.7 Seconds (26.0-36.0)
[2021-11-20 15:06] LABS: Alanine Aminotransferase 12 Units/L (7-52); Albumin 3.7 g/dL (3.5-5.7); Albumin/Globulin Ratio 1.2 (1.1-2.2); Alkaline Phosphatase 52 Units/L (34-104); Aspartate Amino Transferase 12 Units/L (13-39); BUN/Creatinine Ratio 10 (6-26); Bilirubin,Direct 0.2 mg/dL (0.0-0.2); Bilirubin,Indirect 0.8 mg/dL (0.0-1.0); Blood Urea Nitrogen 10 mg/dL (6-20); C-Reactive Protein 203 mg/L (Less than 10); Carbon Dioxide 25 mEq/L (23-29); Chloride 106 mEq/L (98-107); Glucose 91 mg/dL (70-105); Magnesium 1.9 mg/dL (1.6-2.6); Osmolality,Calculated 287 (280-300); Potassium 3.4 mEq/L (3.5-5.1); Sodium 139 mEq/L (136-145); Total Protein 6.7 g/dL (6.4-8.9); Troponin I < 0.03 ng/mL (< 0.04); eGFR For African Americans > 60 (> 60); eGFR For Non-African Americans > 60 (> 60)
[2021-11-20] MEDS ORDERED: Acetaminophen 325 MG TABLET PO PRN (15:20)
[2021-11-20] MEDS ORDERED: Naloxone 0.4 MG/ML INJ IVP PRN (15:20)
[2021-11-20] MEDS ORDERED: Ringers Solution, Lactated 1,000 ML IVC SCH (15:30)
[2021-11-20 15:40] LABS: Bilirubin,Urine Negative (Negative); Blood,Urine Negative (Negative); Clarity,Urine Clear (Clear); Color,Urine Yellow (Yellow); Glucose,Urine (UA) Normal (Normal); Ketones,Urine 20 mg/dL (Negative); Leukocyte Esterase,Urine Negative (Negative); Mucus,Urine Few per lpf (None-Few); Nitrite,Urine Negative (Negative); PH,Urine 5.5 pH Units (5.0-8.0); Protein,Urine 30 mg/dL (Neg-Trace); RBC,Urine 0-3 per hpf (0-3); Specific Gravity,Urine 1.021 (1.010-1.025); Squamous Epithelial Cell,Urine Few per hpf (None-Few); Urobilinogen,Urine Normal (Normal); WBC,Urine 0-3 per hpf (0-3)
[2021-11-20] MEDS ORDERED: *HR* HYDROmorphone (PF) 1 MG/ML SYRINGE IM ONE (15:50)
[2021-11-20] MEDS ORDERED: Iopamidol - 370 500 ML MLS IVP ONE (15:54)
[2021-11-20 16:40] LABS: Influenza A PCR Negative (Negative); Influenza B PCR Negative (Negative); Resp. Syncytial Virus PCR Negative (Negative)
[2021-11-20 16:42] LABS: SARS-CoV-2 by PCR (In House) Negative (Negative)
[2021-11-20] MEDS ORDERED: *HR* OxyCODONE/APAP 5/325 TABLET PO PRN (16:44)
[2021-11-20] MEDS: *HR* OxyCODONE/APAP 10/325 TABLET PO PRN (20:45)
[2021-11-20] MEDS: Gabapentin 300 MG CAPSULE PO SCH (22:59)
[2021-11-20] MEDS: Metoprolol XL (24 HR) Succ 50 MG TAB.ER.24H PO SCH (22:59)
[2021-11-21] MEDS: *HR* OxyCODONE/APAP 10/325 TABLET PO PRN ×2 (00:50→07:59)
[2021-11-21] MEDS: Ringers Solution, Lactated 1,000 ML IVC SCH ×2 (01:26→23:06)
[2021-11-21] MEDS ORDERED: *HR* HYDROmorphone (PF) 1 MG/ML SYRINGE IVP ONE (01:49)
[2021-11-21] MEDS ORDERED: Ibuprofen 800 MG TABLET PO ONE (02:54)
[2021-11-21] MEDS ORDERED: 0.9 % Sodium Chloride 1,000 ML IVC ONE (02:56)
[2021-11-21 04:01] LABS: Basophils % 0.4 %; Eosinophils # 0.1 K/mcL (0.0-0.6); Eosinophils % 1.7 %; Hematocrit 31.9 % (37.5-50.1); Hemoglobin 10.8 g/dL (12.9-16.9); Immature Granulocytes % 0.4 % (0-4); Lymphocytes # 1.3 K/mcL (0.6-4.6); Lymphocytes % 24.1 %; Mean Corpuscular HGB Conc 33.9 g/dL (31.6-35.5); Mean Corpuscular Volume 97.6 fL (83.0-100.0); Mean Platelet Volume 9.6 fL (9.4-12.4); Monocytes # 0.7 K/mcL (0.0-1.3); Monocytes % 12.7 %; Neutrophils # 3.2 K/mcL (1.6-8.9); Platelet Count 118 K/mcL (140-400); Red Blood Count 3.27 M/mcL (4.19-5.50); Segmented Neutrophils % 60.7 %; White Blood Count 5.3 K/mcL (4.3-11.1)
[2021-11-21 04:13] LABS: BUN/Creatinine Ratio 8 (6-26); Blood Urea Nitrogen 10 mg/dL (6-20); Calcium 8.8 mg/dL (8.6-10.3); Carbon Dioxide 27 mEq/L (23-29); Chloride 106 mEq/L (98-107); Glucose 98 mg/dL (70-105); Magnesium 1.8 mg/dL (1.6-2.6); Osmolality,Calculated 293 (280-300); Phosphorous 2.7 mg/dL (2.7-4.5); Potassium 4.1 mEq/L (3.5-5.1); Sodium 142 mEq/L (136-145); Uric Acid 7.7 mg/dL (2.3-7.6); eGFR For African Americans > 60 (> 60); eGFR For Non-African Americans > 60 (> 60)
[2021-11-21] MEDS: Metoprolol XL (24 HR) Succ 50 MG TAB.ER.24H PO SCH ×2 (07:59→20:08)
[2021-11-21] MEDS: allopurinoL 300 MG TABLET PO SCH (07:59)
[2021-11-21] MEDS: Gabapentin 300 MG CAPSULE PO SCH ×3 (07:59→20:10)
[2021-11-21] MEDS: levoFLOXacin 750 MG/150 ML 750 MG/150 ML BAG IVPB SCH (08:00)
[2021-11-21] MEDS ORDERED: *HR* Midazolam HCl 2 MG/2 ML VIAL ONE (11:14)
[2021-11-21] MEDS ORDERED: *HR* Propofol 200 MG/20 ML VIAL IVP ONE (11:14)
[2021-11-21] MEDS ORDERED: *HR* FentaNYL (PF) 100 MCG/2 ML VIAL ONE (11:14)
[2021-11-21] MEDS ORDERED: Lidocaine -MPF 2% 5 ML VIAL ONE (11:16)
[2021-11-21] MEDS ORDERED: Ondansetron 4 MG/2 ML VIAL ONE (11:16)
[2021-11-21] MEDS ORDERED: Vancomycin 1,000 MG VIAL ONE (11:54)
[2021-11-21] MEDS ORDERED: CeFAZolin Syr 2,000MG/20 ML 2,000 MG/20 ML SYRINGE IVPB ONE (12:16)
[2021-11-21] MEDS ORDERED: *HR* Dextrose 50 % in Water (Syg) 50 ML SYRINGE IVP ONE (12:24)
[2021-11-21] MEDS ORDERED: TOTAL JOINT MIXTURE (100ML) INTRAART ONE (12:30)
[2021-11-21] MEDS ORDERED: *HR* OxyCODONE Immed Rel 5 MG TABLET PO PRN (12:36)
[2021-11-21] MEDS ORDERED: Acetaminophen IV 1,000 MG/100 ML BAG IVPB PRN (12:36)
[2021-11-21] MEDS ORDERED: *HR* Labetalol 20 MG/4 ML SYRINGE IVP PRN (12:36)
[2021-11-21] MEDS ORDERED: Ondansetron 4 MG/2 ML VIAL IVP PRN (12:36)
[2021-11-21] MEDS ORDERED: Ketorolac 30 MG/ML VIAL IVP PRN (12:36)
[2021-11-21] MEDS ORDERED: Ringers Solution, Lactated 500 ML IVC ONE (12:45)
[2021-11-21] MEDS: *HR* HYDROmorphone PF 0.5 MG/0.5 ML SYRINGE IVP PRN ×2 (14:29→15:29)
[2021-11-21] MEDS ORDERED: Naloxone 0.4 MG/ML INJ IVP PRN (15:20)
[2021-11-21 15:43] LABS: Creatine Kinase 69 Units/L (30-223)
[2021-11-21] MEDS: Ascorbic Acid 500 MG TABLET PO SCH (18:48)
[2021-11-21] MEDS: Ketorolac 30 MG/ML VIAL IVP SCH (18:48)
[2021-11-21] MEDS: DAPTOmycin 500 MG in 0.9 % Sodium Chloride 100 ML IVPB SCH (18:50)
[2021-11-21] MEDS: *HR* OxyCODONE Immed Rel 5 MG TABLET PO PRN ×2 (18:55→23:04)
[2021-11-22] MEDS: Ketorolac 30 MG/ML VIAL IVP SCH ×4 (01:19→19:29)
[2021-11-22 04:57] LABS: Basophils % 0.2 %; Hematocrit 30.9 % (37.5-50.1); Hemoglobin 10.6 g/dL (12.9-16.9); Immature Granulocytes % 0.4 % (0-4); Lymphocytes # 0.5 K/mcL (0.6-4.6); Lymphocytes % 9.6 %; Mean Corpuscular HGB Conc 34.3 g/dL (31.6-35.5); Mean Corpuscular Hemoglobin 32.9 pg (28.0-33.3); Mean Platelet Volume 9.5 fL (9.4-12.4); Monocytes # 0.3 K/mcL (0.0-1.3); Monocytes % 6.9 %; Neutrophils # 4.1 K/mcL (1.6-8.9); Platelet Count 158 K/mcL (140-400); Red Blood Count 3.22 M/mcL (4.19-5.50); Red Cell Distribution Width 13.6 % (11.5-14.5); Segmented Neutrophils % 82.9 %; White Blood Count 4.9 K/mcL (4.3-11.1)
[2021-11-22] MEDS: *HR* OxyCODONE Immed Rel 5 MG TABLET PO PRN ×5 (05:10→23:51)
[2021-11-22 05:22] LABS: BUN/Creatinine Ratio 14 (6-26); Blood Urea Nitrogen 15 mg/dL (6-20); Calcium 8.5 mg/dL (8.6-10.3); Carbon Dioxide 22 mEq/L (23-29); Chloride 109 mEq/L (98-107); Glucose 168 mg/dL (70-105); Magnesium 2.1 mg/dL (1.6-2.6); Osmolality,Calculated 293 (280-300); Phosphorous 2.4 mg/dL (2.7-4.5); Potassium 3.8 mEq/L (3.5-5.1); Sodium 139 mEq/L (136-145); eGFR For African Americans > 60 (> 60); eGFR For Non-African Americans > 60 (> 60)
[2021-11-22] MEDS: Multivit/Ca/Min/Fe/FA 1 TAB TABLET PO SCH (08:39)
[2021-11-22] MEDS: Aspirin Enteric Coated 81 MG Tablet PO SCH ×2 (08:39→19:30)
[2021-11-22] MEDS: Gabapentin 300 MG CAPSULE PO SCH ×3 (08:39→19:30)
[2021-11-22] MEDS: Ascorbic Acid 500 MG TABLET PO SCH ×2 (08:39→15:31)
[2021-11-22] MEDS: allopurinoL 300 MG TABLET PO SCH (08:39)
[2021-11-22] MEDS: Metoprolol XL (24 HR) Succ 50 MG TAB.ER.24H PO SCH ×2 (08:39→19:30)
[2021-11-22] MEDS: levoFLOXacin 750 MG/150 ML 750 MG/150 ML BAG IVPB SCH (08:40)
[2021-11-22] MEDS: Ringers Solution, Lactated 1,000 ML IVC SCH (14:29)
[2021-11-22] MEDS: DAPTOmycin 500 MG in 0.9 % Sodium Chloride 100 ML IVPB SCH (15:32)
[2021-11-22 22:03] LABS: Chlamydia Trachomatis DNA Ur NOT DETECTED (Not Detect)
[2021-11-22] MEDS: Lactobacillus 1 EACH CAP.SPRINK PO SCH (23:51)
[2021-11-23] MEDS: Ketorolac 30 MG/ML VIAL IVP SCH ×3 (02:52→17:30)
[2021-11-23] MEDS ORDERED: *HR* HYDROmorphone (PF) 1 MG/ML SYRINGE IVP ONE (03:21)
[2021-11-23] MEDS: *HR* OxyCODONE Immed Rel 5 MG TABLET PO PRN ×3 (04:29→21:45)
[2021-11-23 05:18] LABS: BUN/Creatinine Ratio 14 (6-26); Blood Urea Nitrogen 16 mg/dL (6-20); Calcium 8.4 mg/dL (8.6-10.3); Carbon Dioxide 27 mEq/L (23-29); Chloride 111 mEq/L (98-107); Glucose 97 mg/dL (70-105); Osmolality,Calculated 299 (280-300); Phosphorous 3.7 mg/dL (2.7-4.5); Potassium 3.4 mEq/L (3.5-5.1); Sodium 144 mEq/L (136-145); eGFR For African Americans > 60 (> 60); eGFR For Non-African Americans > 60 (> 60)
[2021-11-23 05:22] LABS: Basophils % 0.5 %; Eosinophils # 0.1 K/mcL (0.0-0.6); Eosinophils % 2.3 %; Hematocrit 31.6 % (37.5-50.1); Hemoglobin 10.4 g/dL (12.9-16.9); Immature Granulocytes % 0.3 % (0-4); Lymphocytes # 1.6 K/mcL (0.6-4.6); Lymphocytes % 27.2 %; Mean Corpuscular HGB Conc 32.9 g/dL (31.6-35.5); Mean Corpuscular Hemoglobin 31.9 pg (28.0-33.3); Mean Corpuscular Volume 96.9 fL (83.0-100.0); Mean Platelet Volume 9.7 fL (9.4-12.4); Monocytes # 0.4 K/mcL (0.0-1.3); Monocytes % 6.3 %; Neutrophils # 3.6 K/mcL (1.6-8.9); Platelet Count 187 K/mcL (140-400); Red Blood Count 3.26 M/mcL (4.19-5.50); Red Cell Distribution Width 13.9 % (11.5-14.5); Segmented Neutrophils % 63.4 %; White Blood Count 5.7 K/mcL (4.3-11.1)
[2021-11-23] MEDS: levoFLOXacin 750 MG/150 ML 750 MG/150 ML BAG IVPB SCH (08:57)
[2021-11-23] MEDS: Ascorbic Acid 500 MG TABLET PO SCH ×2 (09:02→15:13)
[2021-11-23] MEDS: Aspirin Enteric Coated 81 MG Tablet PO SCH ×2 (09:02→21:46)
[2021-11-23] MEDS: Multivit/Ca/Min/Fe/FA 1 TAB TABLET PO SCH (09:02)
[2021-11-23] MEDS: Lactobacillus 1 EACH CAP.SPRINK PO SCH ×2 (09:02→21:46)
[2021-11-23] MEDS: Gabapentin 300 MG CAPSULE PO SCH ×3 (09:02→21:45)
[2021-11-23] MEDS: Metoprolol XL (24 HR) Succ 50 MG TAB.ER.24H PO SCH ×2 (09:02→21:45)
[2021-11-23] MEDS: allopurinoL 300 MG TABLET PO SCH (09:02)
[2021-11-23] MEDS: *HR* HYDROmorphone (PF) 1 MG/ML SYRINGE IVP PRN ×2 (13:59→23:00)
[2021-11-23] MEDS: DAPTOmycin 500 MG in 0.9 % Sodium Chloride 100 ML IVPB SCH (15:08)
[2021-11-23] MEDS ORDERED: Ibuprofen 800 MG TABLET PO ONE (22:54)
[2021-11-24] MEDS: Ketorolac 30 MG/ML VIAL IVP SCH (00:04)
[2021-11-24] MEDS: *HR* OxyCODONE Immed Rel 5 MG TABLET PO PRN ×3 (04:38→15:15)
[2021-11-24] MEDS: *HR* HYDROmorphone (PF) 1 MG/ML SYRINGE IVP PRN (07:31)
[2021-11-24] MEDS ORDERED: Ketorolac 30 MG/ML VIAL IVP PRN (08:18)
[2021-11-24] MEDS ORDERED: *HR* HYDROmorphone (PF) 1 MG/ML SYRINGE IVP PRN (08:21)
[2021-11-24 08:24] LABS: Basophils % 0.5 %; Eosinophils # 0.2 K/mcL (0.0-0.6); Eosinophils % 3.8 %; Hematocrit 32.4 % (37.5-50.1); Hemoglobin 10.7 g/dL (12.9-16.9); Immature Granulocytes % 0.2 % (0-4); Lymphocytes # 1.2 K/mcL (0.6-4.6); Lymphocytes % 20.5 %; Mean Corpuscular Hemoglobin 32.6 pg (28.0-33.3); Mean Corpuscular Volume 98.8 fL (83.0-100.0); Mean Platelet Volume 9.1 fL (9.4-12.4); Monocytes # 0.5 K/mcL (0.0-1.3); Monocytes % 8.4 %; Platelet Count 168 K/mcL (140-400); Red Blood Count 3.28 M/mcL (4.19-5.50); Red Cell Distribution Width 13.8 % (11.5-14.5); Segmented Neutrophils % 66.6 %
[2021-11-24] MEDS: allopurinoL 300 MG TABLET PO SCH (08:31)
[2021-11-24] MEDS: Lactobacillus 1 EACH CAP.SPRINK PO SCH ×2 (08:31→21:04)
[2021-11-24] MEDS: Metoprolol XL (24 HR) Succ 50 MG TAB.ER.24H PO SCH ×2 (08:31→21:04)
[2021-11-24] MEDS: Gabapentin 300 MG CAPSULE PO SCH ×3 (08:31→21:04)
[2021-11-24] MEDS: Aspirin Enteric Coated 81 MG Tablet PO SCH ×2 (08:32→21:05)
[2021-11-24] MEDS: Ascorbic Acid 500 MG TABLET PO SCH ×2 (08:32→15:14)
[2021-11-24] MEDS: Multivit/Ca/Min/Fe/FA 1 TAB TABLET PO SCH (08:33)
[2021-11-24] MEDS: levoFLOXacin 750 MG/150 ML 750 MG/150 ML BAG IVPB SCH (08:34)
[2021-11-24 08:44] LABS: % Iron Saturation 4 % (20-55); BUN/Creatinine Ratio 12 (6-26); Blood Urea Nitrogen 12 mg/dL (6-20); Calcium 8.5 mg/dL (8.6-10.3); Carbon Dioxide 26 mEq/L (23-29); Chloride 110 mEq/L (98-107); Glucose 79 mg/dL (70-105); Iron 14 mcg/dL (65-175); Lactate Dehydrogenase 183 Units/L (140-271); Osmolality,Calculated 295 (280-300); Potassium 3.7 mEq/L (3.5-5.1); Sodium 143 mEq/L (136-145); Transferrin 223 mg/dL (203-362); eGFR For African Americans > 60 (> 60); eGFR For Non-African Americans > 60 (> 60)
[2021-11-24 09:02] LABS: Ferritin 196 ng/mL (20-250)
[2021-11-24 09:07] LABS: Folate 11.2 ng/mL (3.0-16.0)
[2021-11-24 10:30] LABS: Adenovirus Not Detected (Not Detect); Bordetella Pertussis Not Detected (Not Detect); Chlamydophila pneumoniae Not Detected (Not Detect); Coronavirus 229E Not Detected (Not Detect); Coronavirus HKU1 Not Detected (Not Detect); Coronavirus NL63 Not Detected (Not Detect); Coronavirus OC43 Not Detected (Not Detect); Human Metapneumovirus Not Detected (Not Detect); Human Rhinovirus/Enterovirus Not Detected (Not Detect); Influenza A Subtype 2009 H1 Not Detected (Not Detect); Influenza B Not Detected (Not Detect); Mycoplasma pneumoniae Not Detected (Not Detect); Parainfluenza Virus 1 Not Detected (Not Detect); Parainfluenza Virus 2 Not Detected (Not Detect); Parainfluenza Virus 3 Not Detected (Not Detect); Parainfluenza Virus 4 Not Detected (Not Detect); Respiratory Syncytial Virus Not Detected (Not Detect); SARS-CoV-2 Not Detected (Not Detect)
[2021-11-24] MEDS: Cyanocobalamin (B-12) 1,000 MCG TABLET PO SCH (15:14)
[2021-11-24] MEDS: Menthol 1 EACH LOZENGE PO PRN (15:15)
[2021-11-24] MEDS: DAPTOmycin 500 MG in 0.9 % Sodium Chloride 100 ML IVPB SCH (18:29)
[2021-11-24] MEDS ORDERED: Ketorolac 30 MG/ML VIAL IVP ONE (18:32)
[2021-11-24] MEDS ORDERED: Prochlorperazine 10 MG/2 ML VIAL IVP ONE (18:45)
[2021-11-24] MEDS: Ibuprofen 400 MG TABLET PO PRN (21:04)
[2021-11-25 03:13] LABS: Basophils % 0.4 %; Eosinophils # 0.2 K/mcL (0.0-0.6); Eosinophils % 2.2 %; Hematocrit 31.5 % (37.5-50.1); Hemoglobin 10.6 g/dL (12.9-16.9); Immature Granulocytes % 0.1 % (0-4); Lymphocytes # 1.2 K/mcL (0.6-4.6); Lymphocytes % 17.4 %; Mean Corpuscular HGB Conc 33.7 g/dL (31.6-35.5); Mean Corpuscular Hemoglobin 32.1 pg (28.0-33.3); Mean Corpuscular Volume 95.5 fL (83.0-100.0); Mean Platelet Volume 8.8 fL (9.4-12.4); Monocytes # 0.6 K/mcL (0.0-1.3); Monocytes % 8.5 %; Platelet Count 183 K/mcL (140-400); Red Cell Distribution Width 13.2 % (11.5-14.5); Segmented Neutrophils % 71.4 %; White Blood Count 6.9 K/mcL (4.3-11.1)
[2021-11-25 03:36] LABS: BUN/Creatinine Ratio 11 (6-26); Blood Urea Nitrogen 10 mg/dL (6-20); Calcium 8.7 mg/dL (8.6-10.3); Carbon Dioxide 29 mEq/L (23-29); Chloride 106 mEq/L (98-107); Glucose 92 mg/dL (70-105); Osmolality,Calculated 289 (280-300); Potassium 3.7 mEq/L (3.5-5.1); Sodium 140 mEq/L (136-145); eGFR For African Americans > 60 (> 60); eGFR For Non-African Americans > 60 (> 60)
[2021-11-25] MEDS: *HR* OxyCODONE Immed Rel 5 MG TABLET PO PRN ×4 (05:41→21:09)
[2021-11-25] MEDS: levoFLOXacin 750 MG/150 ML 750 MG/150 ML BAG IVPB SCH (11:02)
[2021-11-25] MEDS: Metoprolol XL (24 HR) Succ 50 MG TAB.ER.24H PO SCH ×2 (11:03→21:09)
[2021-11-25] MEDS: Gabapentin 300 MG CAPSULE PO SCH ×3 (11:03→21:09)
[2021-11-25] MEDS: Ascorbic Acid 500 MG TABLET PO SCH ×2 (11:03→17:59)
[2021-11-25] MEDS: Cyanocobalamin (B-12) 1,000 MCG TABLET PO SCH (11:04)
[2021-11-25] MEDS: Multivit/Ca/Min/Fe/FA 1 TAB TABLET PO SCH (11:04)
[2021-11-25] MEDS: Aspirin Enteric Coated 81 MG Tablet PO SCH ×2 (11:04→21:09)
[2021-11-25] MEDS: allopurinoL 300 MG TABLET PO SCH (11:04)
[2021-11-25] MEDS: Lactobacillus 1 EACH CAP.SPRINK PO SCH ×2 (11:04→21:09)
[2021-11-25] MEDS: tiZANidine 4 MG TABLET PO PRN (15:27)
[2021-11-25] MEDS: DAPTOmycin 500 MG in 0.9 % Sodium Chloride 100 ML IVPB SCH (17:58)
[2021-11-25] MEDS: Menthol 1 EACH LOZENGE PO PRN (21:41)
[2021-11-26] MEDS: Ibuprofen 400 MG TABLET PO PRN ×2 (00:11→16:17)
[2021-11-26 04:40] LABS: Basophils % 0.6 %; Eosinophils # 0.2 K/mcL (0.0-0.6); Eosinophils % 2.9 %; Hematocrit 31.3 % (37.5-50.1); Hemoglobin 10.5 g/dL (12.9-16.9); Immature Granulocytes % 0.6 % (0-4); Lymphocytes # 1.4 K/mcL (0.6-4.6); Mean Corpuscular HGB Conc 33.5 g/dL (31.6-35.5); Mean Corpuscular Hemoglobin 31.9 pg (28.0-33.3); Mean Corpuscular Volume 95.1 fL (83.0-100.0); Monocytes # 0.8 K/mcL (0.0-1.3); Monocytes % 11.4 %; Neutrophils # 4.5 K/mcL (1.6-8.9); Platelet Count 215 K/mcL (140-400); Red Blood Count 3.29 M/mcL (4.19-5.50); Red Cell Distribution Width 13.2 % (11.5-14.5); Segmented Neutrophils % 64.5 %; White Blood Count 6.9 K/mcL (4.3-11.1)
[2021-11-26 04:56] LABS: BUN/Creatinine Ratio 10 (6-26); Blood Urea Nitrogen 10 mg/dL (6-20); Calcium 8.2 mg/dL (8.6-10.3); Carbon Dioxide 27 mEq/L (23-29); Chloride 106 mEq/L (98-107); Glucose 97 mg/dL (70-105); Osmolality,Calculated 287 (280-300); Potassium 3.6 mEq/L (3.5-5.1); Sodium 139 mEq/L (136-145); eGFR For African Americans > 60 (> 60); eGFR For Non-African Americans > 60 (> 60)
[2021-11-26] MEDS: *HR* OxyCODONE Immed Rel 5 MG TABLET PO PRN ×4 (06:20→23:38)
[2021-11-26] MEDS: Lactobacillus 1 EACH CAP.SPRINK PO SCH ×2 (07:57→20:14)
[2021-11-26] MEDS: Gabapentin 300 MG CAPSULE PO SCH ×3 (07:57→20:13)
[2021-11-26] MEDS: Cyanocobalamin (B-12) 1,000 MCG TABLET PO SCH (07:58)
[2021-11-26] MEDS: Multivit/Ca/Min/Fe/FA 1 TAB TABLET PO SCH (07:58)
[2021-11-26] MEDS: Aspirin Enteric Coated 81 MG Tablet PO SCH ×2 (07:58→20:13)
[2021-11-26] MEDS: Metoprolol XL (24 HR) Succ 50 MG TAB.ER.24H PO SCH ×2 (07:58→20:14)
[2021-11-26] MEDS: levoFLOXacin 750 MG/150 ML 750 MG/150 ML BAG IVPB SCH (07:58)
[2021-11-26] MEDS: Ascorbic Acid 500 MG TABLET PO SCH ×2 (07:58→16:19)
[2021-11-26] MEDS: allopurinoL 300 MG TABLET PO SCH (07:59)
[2021-11-26] MEDS: tiZANidine 4 MG TABLET PO PRN ×2 (11:32→23:39)
[2021-11-26 14:40] LABS: Adenovirus Not Detected (Not Detect); Coronavirus 229E Not Detected (Not Detect); Coronavirus HKU1 Not Detected (Not Detect); Coronavirus NL63 Not Detected (Not Detect); Coronavirus OC43 Not Detected (Not Detect); Human Metapneumovirus Not Detected (Not Detect); Human Rhinovirus/Enterovirus Not Detected (Not Detect); Influenza A Subtype 2009 H1 Not Detected (Not Detect); Influenza B Not Detected (Not Detect); Parainfluenza Virus 1 Not Detected (Not Detect); Parainfluenza Virus 2 Not Detected (Not Detect); Parainfluenza Virus 3 Not Detected (Not Detect); Parainfluenza Virus 4 Not Detected (Not Detect); SARS-CoV-2 Not Detected (Not Detect)
[2021-11-26 14:41] LABS: Bordetella Pertussis Not Detected (Not Detect); Chlamydophila pneumoniae Not Detected (Not Detect); Mycoplasma pneumoniae Not Detected (Not Detect); Respiratory Syncytial Virus Not Detected (Not Detect)
[2021-11-26] MEDS: predniSONE 20 MG TABLET PO SCH (16:16)
[2021-11-26] MEDS: DAPTOmycin 500 MG in 0.9 % Sodium Chloride 100 ML IVPB SCH (16:18)
[2021-11-26 17:28] LABS: Bilirubin,Urine Negative (Negative); Blood,Urine Negative (Negative); Clarity,Urine Clear (Clear); Color,Urine Light-Yellow (Yellow); Glucose,Urine (UA) Normal (Normal); Ketones,Urine Negative (Negative); Leukocyte Esterase,Urine Negative (Negative); Nitrite,Urine Negative (Negative); PH,Urine 7.5 pH Units (5.0-8.0); Protein,Urine Trace mg/dL (Neg-Trace); Specific Gravity,Urine 1.016 (1.010-1.025); Urobilinogen,Urine Normal (Normal)
[2021-11-27 03:27] VITALS: PULSE 73
[2021-11-27 07:55] VITALS: BP 112/73; TEMP 97.8; O2SAT 100
[2021-11-27] MEDS: Gabapentin 300 MG CAPSULE PO SCH (08:24)
[2021-11-27] MEDS: Cyanocobalamin (B-12) 1,000 MCG TABLET PO SCH (08:24)
[2021-11-27] MEDS: allopurinoL 300 MG TABLET PO SCH (08:24)
[2021-11-27] MEDS: Aspirin Enteric Coated 81 MG Tablet PO SCH (08:24)
[2021-11-27] MEDS: *HR* OxyCODONE Immed Rel 5 MG TABLET PO PRN (08:24)
[2021-11-27] MEDS: Metoprolol XL (24 HR) Succ 50 MG TAB.ER.24H PO SCH (08:24)
[2021-11-27] MEDS: Ascorbic Acid 500 MG TABLET PO SCH (08:24)
[2021-11-27] MEDS: predniSONE 20 MG TABLET PO SCH (08:24)
[2021-11-27] MEDS: Lactobacillus 1 EACH CAP.SPRINK PO SCH (08:25)
[2021-11-27] MEDS: Multivit/Ca/Min/Fe/FA 1 TAB TABLET PO SCH (08:25)
[2021-11-27] MEDS: levoFLOXacin 750 MG/150 ML 750 MG/150 ML BAG IVPB SCH (08:25)
[2021-11-27] MEDS ORDERED: DAPTOmycin 500 MG in 0.9 % Sodium Chloride 100 ML IVPB SCH (14:00)
== END 2021-11-27 15:12 | disposition home health service (06) | DRG 854 ==
LOC: EMEROOARM 12:57 → 3ANU 12:57 → SUATTDRO 11-21 12:18 → 4WAOSI 11-21 16:23
PROVIDERS: ADMIT Internal Medicine; ATTEND Internal Medicine

== ENCOUNTER 2021-12-04 19:43 | Inpatient (IN) ==
[2021-12-04] MEDS ORDERED: Iopamidol - 370 500 ML MLS IVP ONE (20:56)
[2021-12-04] MEDS ORDERED: *HR* HYDROmorphone (PF) 1 MG/ML SYRINGE IVP ONE ×2 (20:57→23:47)
[2021-12-04] MEDS ORDERED: methylPREDNISolone 125 MG/2 ML VIAL IVP ONE (21:10)
[2021-12-04] MEDS ORDERED: Vancomycin 1,500 MG/265 ML IV.SOLN IVPB ONE ×2 (21:14→22:00)
[2021-12-04 22:43] LABS: Basophils # 0.1 K/mcL (0.0-0.2); Basophils % 0.8 %; Eosinophils # 0.2 K/mcL (0.0-0.6); Eosinophils % 1.2 %; Hematocrit 34.5 % (37.5-50.1); Hemoglobin 11.8 g/dL (12.9-16.9); Immature Granulocytes % 1.7 % (0-4); Mean Corpuscular HGB Conc 34.2 g/dL (31.6-35.5); Mean Corpuscular Hemoglobin 32.2 pg (28.0-33.3); Mean Platelet Volume 8.9 fL (9.4-12.4); Monocytes # 0.8 K/mcL (0.0-1.3); Monocytes % 5.9 %; Neutrophils # 9.9 K/mcL (1.6-8.9); Platelet Count 371 K/mcL (140-400); Red Blood Count 3.67 M/mcL (4.19-5.50); Red Cell Distribution Width 13.4 % (11.5-14.5); Segmented Neutrophils % 75.4 %; White Blood Count 13.2 K/mcL (4.3-11.1)
[2021-12-04 22:59] LABS: Albumin 3.7 g/dL (3.5-5.7); Albumin/Globulin Ratio 1.1 (1.1-2.2); Bilirubin,Total 0.6 mg/dL (0.3-1.0); Calcium 9.2 mg/dL (8.6-10.3); Globulin 3.4 g/dL (2.4-3.5); Potassium 3.6 mEq/L (3.5-5.1); Total Protein 7.1 g/dL (6.4-8.9)
[2021-12-05] MEDS ORDERED: *HR* HYDROmorphone (PF) 1 MG/ML SYRINGE IVP ONE (03:40)
[2021-12-05] MEDS ORDERED: *HR* Promethazine 25 MG/ML VIAL IM PRN (03:44)
[2021-12-05] MEDS ORDERED: Ondansetron 4 MG/2 ML VIAL IVP PRN (03:44)
[2021-12-05] MEDS ORDERED: Naloxone 0.4 MG/ML INJ IVP PRN (03:44)
[2021-12-05] MEDS ORDERED: Melatonin 3 MG TABLET PO PRN (03:44)
[2021-12-05] MEDS: Ringers Solution, Lactated 1,000 ML IVC SCH ×2 (05:16→11:56)
[2021-12-05] MEDS: *HR* OxyCODONE Immed Rel 5 MG TABLET PO PRN ×3 (05:30→21:15)
[2021-12-05] MEDS ORDERED: rifAMPin 150 MG CAPSULE PO SCH (07:30)
[2021-12-05] MEDS: *HR* HYDROcodone/Acet 5/325 mg TABLET PO PRN ×2 (08:28→18:12)
[2021-12-05] MEDS: *HR* Heparin 5,000 UNIT/ML VIAL SQ SCH ×3 (08:29→23:19)
[2021-12-05 08:37] LABS: Basophils % 0.3 %; Hematocrit 36.7 % (37.5-50.1); Hemoglobin 12.4 g/dL (12.9-16.9); Immature Granulocytes % 1.2 % (0-4); Lymphocytes # 0.9 K/mcL (0.6-4.6); Lymphocytes % 6.4 %; Mean Corpuscular HGB Conc 33.8 g/dL (31.6-35.5); Mean Corpuscular Hemoglobin 31.7 pg (28.0-33.3); Mean Corpuscular Volume 93.9 fL (83.0-100.0); Mean Platelet Volume 9.1 fL (9.4-12.4); Monocytes # 0.2 K/mcL (0.0-1.3); Monocytes % 1.8 %; Neutrophils # 12.2 K/mcL (1.6-8.9); Platelet Count 452 K/mcL (140-400); Red Blood Count 3.91 M/mcL (4.19-5.50); Red Cell Distribution Width 13.1 % (11.5-14.5); Segmented Neutrophils % 90.3 %; White Blood Count 13.5 K/mcL (4.3-11.1)
[2021-12-05 08:53] LABS: BUN/Creatinine Ratio 21 (6-26); Blood Urea Nitrogen 20 mg/dL (6-20); Calcium 9.6 mg/dL (8.6-10.3); Carbon Dioxide 25 mEq/L (23-29); Chloride 100 mEq/L (98-107); Creatine Kinase 22 Units/L (30-223); Glucose 157 mg/dL (70-105); Osmolality,Calculated 286 (280-300); Potassium 4.3 mEq/L (3.5-5.1); Sodium 135 mEq/L (136-145)
[2021-12-05 08:56] LABS: INR 1.1; Prothrombin Time 12.7 Seconds (9.4-12.1)
[2021-12-05] MEDS: Meropenem 1,000 MG in 0.9 % Sodium Chloride Mini Bag 100 ML IVPB SCH ×3 (10:35→23:19)
[2021-12-05] MEDS: Vancomycin 1,250 MG/262.5 ML IV.SOLN IVPB SCH ×2 (10:41→21:20)
[2021-12-05] MEDS: Ketorolac 30 MG/ML VIAL IVP PRN (11:17)
[2021-12-05 11:40] LABS: Source,Synovial Fluid Right knee
[2021-12-05 13:27] LABS: Appearance,Synovial Fluid Cloudy (Clear-Hazy); Color,Synovial Fluid Red (Straw)
[2021-12-05] MEDS: Lactobacillus 1 EACH CAP.SPRINK PO SCH ×2 (15:08→21:15)
[2021-12-05] MEDS: Gabapentin 300 MG CAPSULE PO SCH ×2 (15:08→21:15)
[2021-12-05] MEDS: Metoprolol XL (24 HR) Succ 50 MG TAB.ER.24H PO SCH (21:15)
[2021-12-05] MEDS: Aspirin Enteric Coated 81 MG Tablet PO SCH (21:15)
[2021-12-05] MEDS: Nystatin POWDER 30 GM BOTTLE TP SCH (21:19)
[2021-12-06] MEDS: *HR* OxyCODONE Immed Rel 5 MG TABLET PO PRN ×3 (03:32→20:51)
[2021-12-06 05:20] LABS: Basophils # 0.1 K/mcL (0.0-0.2); Basophils % 0.5 %; Eosinophils # 0.1 K/mcL (0.0-0.6); Eosinophils % 0.7 %; Hematocrit 36.9 % (37.5-50.1); Lymphocytes # 2.4 K/mcL (0.6-4.6); Lymphocytes % 19.1 %; Mean Corpuscular HGB Conc 32.5 g/dL (31.6-35.5); Mean Corpuscular Hemoglobin 31.5 pg (28.0-33.3); Mean Corpuscular Volume 96.9 fL (83.0-100.0); Mean Platelet Volume 9.3 fL (9.4-12.4); Monocytes # 0.6 K/mcL (0.0-1.3); Monocytes % 4.7 %; Neutrophils # 9.3 K/mcL (1.6-8.9); Platelet Count 379 K/mcL (140-400); Red Blood Count 3.81 M/mcL (4.19-5.50); Red Cell Distribution Width 13.5 % (11.5-14.5); White Blood Count 12.6 K/mcL (4.3-11.1)
[2021-12-06 06:46] LABS: BUN/Creatinine Ratio 30 (6-26); Blood Urea Nitrogen 29 mg/dL (6-20); Calcium 9.1 mg/dL (8.6-10.3); Carbon Dioxide 25 mEq/L (23-29); Chloride 105 mEq/L (98-107); Glucose 111 mg/dL (70-105); Magnesium 2.2 mg/dL (1.6-2.6); Osmolality,Calculated 291 (280-300); Sodium 137 mEq/L (136-145)
[2021-12-06] MEDS: allopurinoL 300 MG TABLET PO SCH (08:12)
[2021-12-06] MEDS: Aspirin Enteric Coated 81 MG Tablet PO SCH ×2 (08:12→20:51)
[2021-12-06] MEDS: Cyanocobalamin (B-12) 1,000 MCG TABLET PO SCH (08:12)
[2021-12-06] MEDS: Lactobacillus 1 EACH CAP.SPRINK PO SCH ×3 (08:12→20:50)
[2021-12-06] MEDS: Meropenem 1,000 MG in 0.9 % Sodium Chloride Mini Bag 100 ML IVPB SCH ×3 (08:13→23:56)
[2021-12-06] MEDS: Metoprolol XL (24 HR) Succ 50 MG TAB.ER.24H PO SCH ×2 (08:13→20:50)
[2021-12-06] MEDS: Gabapentin 300 MG CAPSULE PO SCH ×3 (08:13→20:52)
[2021-12-06] MEDS: *HR* Heparin 5,000 UNIT/ML VIAL SQ SCH ×3 (08:13→23:57)
[2021-12-06] MEDS: Nystatin POWDER 30 GM BOTTLE TP SCH ×2 (08:56→20:52)
[2021-12-06] MEDS: *HR* HYDROcodone/Acet 5/325 mg TABLET PO PRN ×2 (10:46→23:56)
[2021-12-06] MEDS: Vancomycin 1,250 MG/262.5 ML IV.SOLN IVPB SCH ×2 (10:48→19:11)
[2021-12-06] MEDS: Ketorolac 30 MG/ML VIAL IVP PRN (20:53)
[2021-12-06] MEDS: tiZANidine 4 MG TABLET PO PRN (23:56)
[2021-12-07] MEDS: *HR* OxyCODONE Immed Rel 5 MG TABLET PO PRN ×3 (06:30→20:16)
[2021-12-07 07:13] LABS: Basophils # 0.1 K/mcL (0.0-0.2); Basophils % 1.1 %; Eosinophils # 0.2 K/mcL (0.0-0.6); Eosinophils % 2.3 %; Hematocrit 32.7 % (37.5-50.1); Immature Granulocytes % 1.7 % (0-4); Lymphocytes # 2.3 K/mcL (0.6-4.6); Mean Corpuscular HGB Conc 31.8 g/dL (31.6-35.5); Mean Corpuscular Hemoglobin 31.8 pg (28.0-33.3); Mean Platelet Volume 9.4 fL (9.4-12.4); Monocytes # 0.5 K/mcL (0.0-1.3); Monocytes % 7.5 %; Neutrophils # 3.9 K/mcL (1.6-8.9); Platelet Count 286 K/mcL (140-400); Red Blood Count 3.27 M/mcL (4.19-5.50); Red Cell Distribution Width 13.6 % (11.5-14.5); Segmented Neutrophils % 55.4 %; White Blood Count 7.1 K/mcL (4.3-11.1)
[2021-12-07 07:18] LABS: BUN/Creatinine Ratio 23 (6-26); Blood Urea Nitrogen 23 mg/dL (6-20); Calcium 8.5 mg/dL (8.6-10.3); Carbon Dioxide 28 mEq/L (23-29); Chloride 109 mEq/L (98-107); Glucose 85 mg/dL (70-105); Magnesium 2.1 mg/dL (1.6-2.6); Osmolality,Calculated 295 (280-300); Sodium 141 mEq/L (136-145)
[2021-12-07] MEDS: Vancomycin 1,250 MG/262.5 ML IV.SOLN IVPB SCH ×2 (07:39→18:37)
[2021-12-07] MEDS: Meropenem 1,000 MG in 0.9 % Sodium Chloride Mini Bag 100 ML IVPB SCH ×2 (08:18→16:32)
[2021-12-07] MEDS: *HR* Heparin 5,000 UNIT/ML VIAL SQ SCH ×2 (08:18→16:32)
[2021-12-07] MEDS: Aspirin Enteric Coated 81 MG Tablet PO SCH ×2 (08:19→19:52)
[2021-12-07] MEDS: Cyanocobalamin (B-12) 1,000 MCG TABLET PO SCH (08:19)
[2021-12-07] MEDS: allopurinoL 300 MG TABLET PO SCH (08:19)
[2021-12-07] MEDS: Lactobacillus 1 EACH CAP.SPRINK PO SCH ×3 (08:19→19:52)
[2021-12-07] MEDS: Metoprolol XL (24 HR) Succ 50 MG TAB.ER.24H PO SCH ×2 (08:19→19:52)
[2021-12-07] MEDS: Gabapentin 300 MG CAPSULE PO SCH ×3 (08:19→19:52)
[2021-12-07 08:28] LABS: Hemoglobin 10.4 g/dL (12.9-16.9)
[2021-12-07] MEDS: tiZANidine 4 MG TABLET PO PRN ×2 (08:37→20:16)
[2021-12-07] MEDS: Nystatin POWDER 30 GM BOTTLE TP SCH ×2 (10:14→19:54)
[2021-12-07] MEDS ORDERED: Tdap (Boostrix) Vaccine 0.5 ML SYRINGE IM ONE (13:18)
[2021-12-07] MEDS: Acetaminophen 325 MG TABLET PO PRN (19:52)
[2021-12-08] MEDS: *HR* Heparin 5,000 UNIT/ML VIAL SQ SCH ×2 (00:33→08:31)
[2021-12-08] MEDS: Meropenem 1,000 MG in 0.9 % Sodium Chloride Mini Bag 100 ML IVPB SCH ×3 (00:33→15:58)
[2021-12-08] MEDS: *HR* OxyCODONE Immed Rel 5 MG TABLET PO PRN ×2 (06:10→15:59)
[2021-12-08] MEDS: Vancomycin 1,250 MG/262.5 ML IV.SOLN IVPB SCH (06:11)
[2021-12-08 06:31] LABS: Basophils # 0.1 K/mcL (0.0-0.2); Basophils % 1.1 %; Eosinophils # 0.2 K/mcL (0.0-0.6); Eosinophils % 2.2 %; Hematocrit 32.5 % (37.5-50.1); Hemoglobin 10.8 g/dL (12.9-16.9); Immature Granulocytes % 0.8 % (0-4); Lymphocytes # 2.4 K/mcL (0.6-4.6); Lymphocytes % 27.9 %; Mean Corpuscular HGB Conc 33.2 g/dL (31.6-35.5); Mean Corpuscular Hemoglobin 32.5 pg (28.0-33.3); Mean Corpuscular Volume 97.9 fL (83.0-100.0); Mean Platelet Volume 8.8 fL (9.4-12.4); Monocytes # 0.7 K/mcL (0.0-1.3); Monocytes % 8.4 %; Neutrophils # 5.1 K/mcL (1.6-8.9); Platelet Count 240 K/mcL (140-400); Red Blood Count 3.32 M/mcL (4.19-5.50); Red Cell Distribution Width 13.3 % (11.5-14.5); Segmented Neutrophils % 59.6 %; White Blood Count 8.5 K/mcL (4.3-11.1)
[2021-12-08 06:51] LABS: Calcium 8.9 mg/dL (8.6-10.3); Magnesium 2.1 mg/dL (1.6-2.6); Potassium 4.2 mEq/L (3.5-5.1)
[2021-12-08] MEDS: Metoprolol XL (24 HR) Succ 50 MG TAB.ER.24H PO SCH (08:12)
[2021-12-08] MEDS: Cyanocobalamin (B-12) 1,000 MCG TABLET PO SCH (08:12)
[2021-12-08] MEDS: Aspirin Enteric Coated 81 MG Tablet PO SCH (08:12)
[2021-12-08] MEDS: allopurinoL 300 MG TABLET PO SCH (08:12)
[2021-12-08] MEDS: Gabapentin 300 MG CAPSULE PO SCH ×2 (08:12→15:59)
[2021-12-08] MEDS: Lactobacillus 1 EACH CAP.SPRINK PO SCH ×2 (08:13→15:59)
[2021-12-08] MEDS: Ketorolac 30 MG/ML VIAL IVP PRN (08:30)
[2021-12-08] MEDS: Nystatin POWDER 30 GM BOTTLE TP SCH (13:20)
[2021-12-08 15:22] VITALS: BP 147/85; PULSE 85; TEMP 100; O2SAT 100
[2021-12-08] MEDS: Acetaminophen 325 MG TABLET PO PRN (15:59)
== END 2021-12-08 17:10 | disposition home health service (06) | DRG 559 ==
LOC: EMEROOARM 19:43 → SUATTDRO 12-05 04:09 → 4WAOSI 12-05 04:09
PROVIDERS: ADMIT Internal Medicine; ATTEND Pharmacist

== ENCOUNTER 2021-12-18 16:27 | Inpatient (IN) ==
[2021-12-18 18:50] LABS: Basophils % 0.5 %; Eosinophils # 0.2 K/mcL (0.0-0.6); Eosinophils % 2.7 %; Hematocrit 29.4 % (37.5-50.1); Hemoglobin 9.7 g/dL (12.9-16.9); Immature Granulocytes % 0.4 % (0-4); Lymphocytes # 1.2 K/mcL (0.6-4.6); Lymphocytes % 15.7 %; Mean Corpuscular Hemoglobin 30.7 pg (28.0-33.3); Mean Platelet Volume 9.7 fL (9.4-12.4); Monocytes # 0.5 K/mcL (0.0-1.3); Monocytes % 6.8 %; Neutrophils # 5.5 K/mcL (1.6-8.9); Platelet Count 258 K/mcL (140-400); Red Blood Count 3.16 M/mcL (4.19-5.50); Red Cell Distribution Width 12.7 % (11.5-14.5); Segmented Neutrophils % 73.9 %; White Blood Count 7.5 K/mcL (4.3-11.1)
[2021-12-18] MEDS ORDERED: Ondansetron 4 MG/2 ML VIAL IVP ONE (19:46)
[2021-12-18] MEDS ORDERED: 0.9 % Sodium Chloride 1,000 ML IV ONE (19:46)
[2021-12-18] MEDS ORDERED: *HR* FentaNYL (PF) 100 MCG/2 ML VIAL IVP ONE (19:46)
[2021-12-18] MEDS ORDERED: 0.9 % Sodium Chloride 1,000 ML ONE (19:51)
[2021-12-18] MEDS ORDERED: Ondansetron 4 MG/2 ML VIAL ONE (19:51)
[2021-12-18] MEDS ORDERED: *HR* FentaNYL (PF) 100 MCG/2 ML VIAL ONE (19:51)
[2021-12-18 20:13] LABS: Bacteria,Urine Few per hpf (None-Few); Bilirubin,Urine Negative (Negative); Blood,Urine Negative (Negative); Clarity,Urine Clear (Clear); Color,Urine Light-Yellow (Yellow); Glucose,Urine (UA) Normal (Normal); Hyaline Casts,Urine Moderate per lpf (None Seen); Ketones,Urine 10 mg/dL (Negative); Leukocyte Esterase,Urine Negative (Negative); Mucus,Urine Few per lpf (None-Few); Nitrite,Urine Negative (Negative); PH,Urine 5.5 pH Units (5.0-8.0); Protein,Urine 30 mg/dL (Neg-Trace); RBC,Urine 0-3 per hpf (0-3); Specific Gravity,Urine 1.016 (1.010-1.025); Squamous Epithelial Cell,Urine Few per hpf (None-Few); Urobilinogen,Urine Normal (Normal)
[2021-12-18 20:21] LABS: Calcium 9.3 mg/dL (8.6-10.3); Potassium 3.9 mEq/L (3.5-5.1)
[2021-12-18] MEDS ORDERED: Naloxone 0.4 MG/ML INJ IVP PRN (20:56)
[2021-12-18] MEDS ORDERED: Melatonin 3 MG TABLET PO PRN (20:56)
[2021-12-18] MEDS ORDERED: Acetaminophen 325 MG TABLET PO PRN (20:56)
[2021-12-18 21:22] LABS: Sodium, Urine 43.5 mEq/L
[2021-12-18] MEDS ORDERED: 0.9 % Sodium Chloride 1,000 ML IVC SCH (23:00)
[2021-12-19] MEDS ORDERED: Ringers Solution, Lactated 1,000 ML IVC SCH ×2 (00:45→11:00)
[2021-12-19] MEDS: Sennosides/Docusate Sodium TABLET PO SCH ×3 (01:00→20:51)
[2021-12-19] MEDS: *HR* HYDROcodone/Acet 5/325 mg TABLET PO PRN ×2 (01:07→18:29)
[2021-12-19 04:32] LABS: Basophils % 0.5 %; Eosinophils # 0.2 K/mcL (0.0-0.6); Eosinophils % 3.7 %; Hematocrit 25.8 % (37.5-50.1); Hemoglobin 8.6 g/dL (12.9-16.9); Immature Granulocytes % 0.3 % (0-4); Lymphocytes # 1.4 K/mcL (0.6-4.6); Lymphocytes % 23.1 %; Mean Corpuscular HGB Conc 33.3 g/dL (31.6-35.5); Mean Corpuscular Hemoglobin 31.3 pg (28.0-33.3); Mean Corpuscular Volume 93.8 fL (83.0-100.0); Mean Platelet Volume 9.6 fL (9.4-12.4); Monocytes # 0.6 K/mcL (0.0-1.3); Neutrophils # 3.7 K/mcL (1.6-8.9); Platelet Count 203 K/mcL (140-400); Red Blood Count 2.75 M/mcL (4.19-5.50); Segmented Neutrophils % 62.4 %
[2021-12-19 04:37] LABS: INR 1.4; Prothrombin Time 15.5 Seconds (9.4-12.1)
[2021-12-19 04:40] LABS: Activated Partial Thrombo Time 32.2 Seconds (26.0-36.0)
[2021-12-19 04:49] LABS: Albumin 3.2 g/dL (3.5-5.7); Albumin/Globulin Ratio 1.1 (1.1-2.2); Bilirubin,Total 0.4 mg/dL (0.3-1.0); Calcium 8.3 mg/dL (8.6-10.3); Globulin 2.9 g/dL (2.4-3.5); Magnesium 2.2 mg/dL (1.6-2.6); Phosphorous 4.8 mg/dL (2.7-4.5); Potassium 3.8 mEq/L (3.5-5.1); Total Protein 6.1 g/dL (6.4-8.9)
[2021-12-19] MEDS ORDERED: Metoprolol XL (24 HR) Succ 25 MG TAB.ER.24H PO ONE ×2 (09:00→09:30)
[2021-12-19] MEDS ORDERED: *HR* Midazolam HCl 2 MG/2 ML VIAL ONE (09:03)
[2021-12-19] MEDS ORDERED: *HR* FentaNYL (PF) 100 MCG/2 ML VIAL ONE (09:03)
[2021-12-19] MEDS ORDERED: *HR* Propofol 200 MG/20 ML VIAL IVP ONE (09:04)
[2021-12-19] MEDS ORDERED: Ropivacaine/PF 0.5% 30 ML VIAL ONE (09:14)
[2021-12-19] MEDS ORDERED: Ondansetron 4 MG/2 ML VIAL ONE (09:24)
[2021-12-19] MEDS ORDERED: Lidocaine -MPF 2% 5 ML VIAL ONE (09:26)
[2021-12-19] MEDS ORDERED: *HR* Dextrose 50 % in Water (Syg) 50 ML SYRINGE ONE (09:41)
[2021-12-19] MEDS ORDERED: *HR* HYDROMORPHONE 2 MG/ML VIAL ONE (10:11)
[2021-12-19] MEDS ORDERED: *HR* Metoprolol 5 MG/5 ML VIAL IVP ONE (10:17)
[2021-12-19] MEDS ORDERED: Naloxone 0.4 MG/ML INJ IVP PRN (10:55)
[2021-12-19] MEDS ORDERED: Ketorolac 30 MG/ML VIAL IVP PRN (11:27)
[2021-12-19] MEDS ORDERED: *HR* OxyCODONE Immed Rel 5 MG TABLET PO PRN (11:27)
[2021-12-19] MEDS: tiZANidine 4 MG TABLET PO SCH ×2 (15:04→20:51)
[2021-12-19] MEDS: Metoprolol XL (24 HR) Succ 50 MG TAB.ER.24H PO SCH (20:51)
[2021-12-19] MEDS: Aspirin Enteric Coated 81 MG Tablet PO SCH (20:51)
[2021-12-19] MEDS ORDERED: *HR* OxyCODONE Immed Rel 5 MG TABLET PO ONE (21:52)
[2021-12-20] MEDS: *HR* HYDROcodone/Acet 5/325 mg TABLET PO PRN (06:14)
[2021-12-20 07:19] LABS: Potassium 4.7 mEq/L (3.5-5.1)
[2021-12-20 08:05] LABS: Basophils % 0.2 %; Hemoglobin 9.6 g/dL (12.9-16.9); Red Cell Distribution Width 12.7 % (11.5-14.5)
[2021-12-20 08:07] LABS: Eosinophils % 0.2 %; Hematocrit 28.1 % (37.5-50.1); Immature Granulocytes % 0.3 % (0-4); Immature Platelets 2.5 % (1.1-6.1); Lymphocytes # 0.6 K/mcL (0.6-4.6); Mean Corpuscular HGB Conc 34.2 g/dL (31.6-35.5); Mean Corpuscular Hemoglobin 31.4 pg (28.0-33.3); Mean Corpuscular Volume 91.8 fL (83.0-100.0); Mean Platelet Volume 10.5 fL (9.4-12.4); Monocytes # 0.3 K/mcL (0.0-1.3); Monocytes % 5.2 %; Neutrophils # 5.2 K/mcL (1.6-8.9); Platelet Count 171 K/mcL (140-400); Red Blood Count 3.06 M/mcL (4.19-5.50); Segmented Neutrophils % 84.1 %; White Blood Count 6.2 K/mcL (4.3-11.1)
[2021-12-20] MEDS ORDERED: allopurinoL 300 MG TABLET PO SCH (09:00)
[2021-12-20] MEDS ORDERED: Cyanocobalamin (B-12) 1,000 MCG TABLET PO SCH (09:00)
[2021-12-20 09:13] LABS: Platelet Estimate Normal (Normal)
[2021-12-20] MEDS ORDERED: 0.9 % Sodium Chloride 1,000 ML IVC SCH (09:30)
[2021-12-20] MEDS: Aspirin Enteric Coated 81 MG Tablet PO SCH (10:58)
[2021-12-20] MEDS: Metoprolol XL (24 HR) Succ 50 MG TAB.ER.24H PO SCH (10:58)
[2021-12-20] MEDS: Sennosides/Docusate Sodium TABLET PO SCH (10:58)
[2021-12-20] MEDS: tiZANidine 4 MG TABLET PO SCH (10:58)
[2021-12-20] MEDS ORDERED: Iron Sucrose Complex 250 MG in 0.9 % Sodium Chloride 250 ML IVPB ONE (11:00)
[2021-12-20 12:05] VITALS: BP 115/79; PULSE 78; TEMP 98; O2SAT 97
== END 2021-12-20 16:30 | disposition home or self-care (01) | DRG 486 ==
LOC: EMEROOARM 16:27 → 4WAOSI 20:58 → SUATTDRO 20:58 → 4WAOSI 23:53
PROVIDERS: ADMIT Internal Medicine; ATTEND Internal Medicine

== ENCOUNTER 2022-01-22 17:20 | Inpatient (IN) ==
[2022-01-22] MEDS ORDERED: Ertapenem 1,000 MG in 0.9 % Sodium Chloride Mini Bag 100 ML IVPB ONE (19:23)
[2022-01-22] MEDS ORDERED: Vancomycin 1,500 MG/265 ML IV.SOLN IVPB ONE (19:30)
[2022-01-22] MEDS ORDERED: *HR* HYDROmorphone (PF) 1 MG/ML SYRINGE IVP ONE ×2 (19:49→23:23)
[2022-01-22 19:52] LABS: Basophils # 0.1 K/mcL (0.0-0.2); Basophils % 0.7 %; Eosinophils # 0.3 K/mcL (0.0-0.6); Eosinophils % 3.1 %; Hematocrit 39.5 % (37.5-50.1); Immature Granulocytes % 0.5 % (0-4); Lymphocytes # 1.7 K/mcL (0.6-4.6); Lymphocytes % 19.8 %; Mean Corpuscular HGB Conc 34.2 g/dL (31.6-35.5); Mean Corpuscular Volume 90.8 fL (83.0-100.0); Mean Platelet Volume 9.4 fL (9.4-12.4); Monocytes # 0.8 K/mcL (0.0-1.3); Monocytes % 8.7 %; Neutrophils # 5.9 K/mcL (1.6-8.9); Platelet Count 172 K/mcL (140-400); Red Blood Count 4.35 M/mcL (4.19-5.50); Red Cell Distribution Width 14.3 % (11.5-14.5); Segmented Neutrophils % 67.2 %
[2022-01-22 19:58] LABS: Hemoglobin 13.5 g/dL (12.9-16.9); White Blood Count 8.8 K/mcL (4.3-11.1)
[2022-01-22] MEDS ORDERED: Ondansetron 4 MG/2 ML VIAL IVP ONE (20:03)
[2022-01-22 20:21] LABS: Adenovirus Not Detected (Not Detect); Bordetella Pertussis Not Detected (Not Detect); Chlamydophila pneumoniae Not Detected (Not Detect); Coronavirus 229E Not Detected (Not Detect); Coronavirus HKU1 Not Detected (Not Detect); Coronavirus NL63 Not Detected (Not Detect); Coronavirus OC43 Not Detected (Not Detect); Human Metapneumovirus Not Detected (Not Detect); Human Rhinovirus/Enterovirus DETECTED (Not Detect); Influenza A Subtype 2009 H1 Not Detected (Not Detect); Influenza B Not Detected (Not Detect); Mycoplasma pneumoniae Not Detected (Not Detect); Parainfluenza Virus 1 Not Detected (Not Detect); Parainfluenza Virus 2 Not Detected (Not Detect); Parainfluenza Virus 3 Not Detected (Not Detect); Parainfluenza Virus 4 Not Detected (Not Detect); Respiratory Syncytial Virus Not Detected (Not Detect); SARS-CoV-2 Not Detected (Not Detect)
[2022-01-22 20:24] LABS: Albumin 4.4 g/dL (3.5-5.7); Albumin/Globulin Ratio 1.4 (1.1-2.2); Bilirubin,Direct 0.2 mg/dL (0.0-0.2); Bilirubin,Indirect 0.9 mg/dL (0.0-1.0); Bilirubin,Total 1.1 mg/dL (0.3-1.0); Globulin 3.1 g/dL (2.4-3.5); Total Protein 7.5 g/dL (6.4-8.9)
[2022-01-22 20:25] LABS: BUN/Creatinine Ratio 16 (6-26); Blood Urea Nitrogen 24 mg/dL (6-20); Calcium 9.7 mg/dL (8.6-10.3); Carbon Dioxide 23 mEq/L (23-29); Chloride 103 mEq/L (98-107); Glucose 78 mg/dL (70-105); Osmolality,Calculated 293 (280-300); Potassium 3.2 mEq/L (3.5-5.1); Sodium 140 mEq/L (136-145); Troponin I < 0.03 ng/mL (< 0.04)
[2022-01-22 20:28] LABS: C-Reactive Protein 61 mg/L (Less than 10)
[2022-01-22] MEDS ORDERED: 0.9 % Sodium Chloride 1,000 ML IVC ONE (20:29)
[2022-01-22] MEDS ORDERED: Iopamidol - 370 500 ML MLS IVP ONE (21:18)
[2022-01-22] MEDS ORDERED: Acetaminophen 325 MG TABLET PO PRN (21:33)
[2022-01-22] MEDS ORDERED: Naloxone 0.4 MG/ML INJ IVP PRN (21:33)
[2022-01-22 21:40] LABS: Bilirubin,Urine Negative (Negative); Blood,Urine Negative (Negative); Clarity,Urine Clear (Clear); Color,Urine Yellow (Yellow); Glucose,Urine (UA) Normal (Normal); Ketones,Urine 20 mg/dL (Negative); Leukocyte Esterase,Urine Negative (Negative); Nitrite,Urine Negative (Negative); PH,Urine 5.5 pH Units (5.0-8.0); Protein,Urine Trace mg/dL (Neg-Trace); Specific Gravity,Urine 1.022 (1.010-1.025)
[2022-01-22] MEDS ORDERED: 0.9 % Sodium Chloride 1,000 ML IVC SCH (21:45)
[2022-01-23] MEDS ORDERED: *HR* HYDROmorphone 2 MG/ML SYRINGE IVP PRN (00:33)
[2022-01-23] MEDS: Metoprolol XL (24 HR) Succ 50 MG TAB.ER.24H PO SCH ×3 (01:12→21:53)
[2022-01-23] MEDS: Potassium Chloride Elixir 20 MEQ/15 ML UDC PO ONE ×2 (01:13→01:14)
[2022-01-23] MEDS ORDERED: Potassium Chloride Elixir 20 MEQ/15 ML UDC PO ONE (01:15)
[2022-01-23] MEDS: Ondansetron 4 MG/2 ML VIAL IVP PRN (05:54)
[2022-01-23] MEDS: *HR* HYDROmorphone (PF) 1 MG/ML SYRINGE IVP PRN ×2 (05:54→14:58)
[2022-01-23 06:35] LABS: Hematocrit 34.8 % (37.5-50.1); Mean Corpuscular HGB Conc 34.2 g/dL (31.6-35.5); Mean Corpuscular Hemoglobin 31.2 pg (28.0-33.3); Mean Corpuscular Volume 91.1 fL (83.0-100.0); Mean Platelet Volume 10.1 fL (9.4-12.4); Platelet Count 161 K/mcL (140-400); Red Blood Count 3.82 M/mcL (4.19-5.50); Red Cell Distribution Width 14.6 % (11.5-14.5); White Blood Count 7.9 K/mcL (4.3-11.1)
[2022-01-23 06:37] LABS: Hemoglobin 11.9 g/dL (12.9-16.9)
[2022-01-23 06:55] LABS: Calcium 8.9 mg/dL (8.6-10.3); Potassium 3.6 mEq/L (3.5-5.1)
[2022-01-23] MEDS: Vancomycin 1,250 MG/262.5 ML IV.SOLN IVPB SCH ×2 (08:51→21:53)
[2022-01-23] MEDS: Nystatin SUSP 5 ML UD.LIQ PO SCH ×3 (12:01→21:52)
[2022-01-23] MEDS: Magic Mouthwash 10 ML UD Cup PO SCH ×2 (13:21→18:17)
[2022-01-23] MEDS ORDERED: 0.9 % Sodium Chloride 500 ML IVC ONE (13:36)
[2022-01-23] MEDS ORDERED: tiZANidine 4 MG TABLET PO PRN (15:10)
[2022-01-23] MEDS: Ertapenem 1,000 MG in 0.9 % Sodium Chloride Mini Bag 100 ML IVPB SCH (18:17)
[2022-01-23] MEDS: *HR* Heparin 5,000 UNIT/ML VIAL SQ SCH (18:17)
[2022-01-23] MEDS: Gabapentin 300 MG CAPSULE PO SCH (21:53)
[2022-01-24] MEDS ORDERED: Ringers Solution, Lactated 500 ML IVC ONE (00:01)
[2022-01-24] MEDS: *HR* HYDROmorphone (PF) 1 MG/ML SYRINGE IVP PRN ×2 (01:19→21:33)
[2022-01-24] MEDS: *HR* Heparin 5,000 UNIT/ML VIAL SQ SCH (05:26)
[2022-01-24] MEDS: Nystatin SUSP 5 ML UD.LIQ PO SCH ×4 (08:56→21:32)
[2022-01-24] MEDS: Colchicine 0.6 MG TABLET PO SCH (08:56)
[2022-01-24] MEDS: Magic Mouthwash 10 ML UD Cup PO SCH ×3 (08:56→17:24)
[2022-01-24] MEDS: allopurinoL 100 MG TABLET PO SCH (08:57)
[2022-01-24] MEDS: Cyanocobalamin (B-12) 1,000 MCG TABLET PO SCH (08:57)
[2022-01-24] MEDS: Metoprolol XL (24 HR) Succ 50 MG TAB.ER.24H PO SCH (09:01)
[2022-01-24] MEDS: Gabapentin 300 MG CAPSULE PO SCH ×3 (09:01→21:32)
[2022-01-24] MEDS ORDERED: 0.9 % Sodium Chloride 1,000 ML IVC ONE (09:24)
[2022-01-24 10:24] LABS: Basophils % 0.6 %; Eosinophils # 0.3 K/mcL (0.0-0.6); Eosinophils % 4.8 %; Hematocrit 30.8 % (37.5-50.1); Hemoglobin 10.3 g/dL (12.9-16.9); Immature Granulocytes % 0.2 % (0-4); Lymphocytes # 1.8 K/mcL (0.6-4.6); Lymphocytes % 34.5 %; Mean Corpuscular HGB Conc 33.4 g/dL (31.6-35.5); Mean Corpuscular Hemoglobin 31.1 pg (28.0-33.3); Mean Corpuscular Volume 93.1 fL (83.0-100.0); Mean Platelet Volume 9.7 fL (9.4-12.4); Monocytes # 0.4 K/mcL (0.0-1.3); Monocytes % 7.5 %; Neutrophils # 2.7 K/mcL (1.6-8.9); Platelet Count 148 K/mcL (140-400); Red Blood Count 3.31 M/mcL (4.19-5.50); Red Cell Distribution Width 14.3 % (11.5-14.5); Segmented Neutrophils % 52.4 %; White Blood Count 5.2 K/mcL (4.3-11.1)
[2022-01-24 10:45] LABS: Calcium 8.8 mg/dL (8.6-10.3); Magnesium 2.1 mg/dL (1.6-2.6); Phosphorous 3.1 mg/dL (2.7-4.5); Potassium 3.5 mEq/L (3.5-5.1)
[2022-01-24] MEDS: Apixaban 5 MG TABLET PO SCH ×2 (17:21→21:00)
[2022-01-24] MEDS: Vancomycin 1,250 MG/262.5 ML IV.SOLN IVPB SCH ×2 (17:22→21:38)
[2022-01-24] MEDS: Ertapenem 1,000 MG in 0.9 % Sodium Chloride Mini Bag 100 ML IVPB SCH (21:07)
[2022-01-25] MEDS: Metoprolol XL (24 HR) Succ 50 MG TAB.ER.24H PO SCH ×3 (00:20→21:39)
[2022-01-25] MEDS: *HR* HYDROmorphone (PF) 1 MG/ML SYRINGE IVP PRN ×4 (02:06→21:40)
[2022-01-25] MEDS: Magic Mouthwash 10 ML UD Cup PO SCH ×3 (08:21→17:35)
[2022-01-25] MEDS: Lactobacillus 1 EACH CAP.SPRINK PO SCH ×2 (08:21→21:38)
[2022-01-25] MEDS: Nystatin SUSP 5 ML UD.LIQ PO SCH ×4 (08:21→21:38)
[2022-01-25] MEDS: allopurinoL 100 MG TABLET PO SCH (08:21)
[2022-01-25] MEDS: Colchicine 0.6 MG TABLET PO SCH (08:21)
[2022-01-25] MEDS: Apixaban 5 MG TABLET PO SCH ×2 (08:22→17:35)
[2022-01-25] MEDS: Cyanocobalamin (B-12) 1,000 MCG TABLET PO SCH (08:22)
[2022-01-25] MEDS: Gabapentin 300 MG CAPSULE PO SCH ×3 (08:22→21:38)
[2022-01-25] MEDS: Ondansetron 4 MG/2 ML VIAL IVP PRN (08:34)
[2022-01-25] MEDS: Vancomycin 1,250 MG/262.5 ML IV.SOLN IVPB SCH ×2 (09:38→21:39)
[2022-01-25] MEDS ORDERED: Lidocaine/EPI 1:100k 1% 50 ML VIAL ONE (11:25)
[2022-01-25] MEDS ORDERED: Heparin 1,000 UNITS/500 mL 500 ML ONE (11:25)
[2022-01-25 11:35] LABS: Uric Acid 8.3 mg/dL (2.3-7.6)
[2022-01-25 18:14] LABS: Hematocrit 32.6 % (37.5-50.1); Hemoglobin 10.9 g/dL (12.9-16.9); Immature Granulocytes % 0.2 % (0-4); Lymphocytes % 28.8 %; Mean Corpuscular HGB Conc 33.4 g/dL (31.6-35.5); Mean Corpuscular Hemoglobin 31.1 pg (28.0-33.3); Mean Corpuscular Volume 92.9 fL (83.0-100.0); Mean Platelet Volume 9.6 fL (9.4-12.4); Monocytes % 7.9 %; Platelet Count 182 K/mcL (140-400); Red Blood Count 3.51 M/mcL (4.19-5.50); Red Cell Distribution Width 13.9 % (11.5-14.5); Segmented Neutrophils % 57.3 %; White Blood Count 4.8 K/mcL (4.3-11.1)
[2022-01-25 18:15] LABS: Basophils % 0.8 %; Eosinophils # 0.2 K/mcL (0.0-0.6); Lymphocytes # 1.4 K/mcL (0.6-4.6); Monocytes # 0.4 K/mcL (0.0-1.3); Neutrophils # 2.7 K/mcL (1.6-8.9)
[2022-01-25 18:33] LABS: Calcium 8.7 mg/dL (8.6-10.3); Phosphorous 3.7 mg/dL (2.7-4.5); Potassium 3.7 mEq/L (3.5-5.1)
[2022-01-25] MEDS: Ertapenem 1,000 MG in 0.9 % Sodium Chloride Mini Bag 100 ML IVPB SCH (19:22)
[2022-01-26] MEDS: *HR* HYDROmorphone (PF) 1 MG/ML SYRINGE IVP PRN (04:18)
[2022-01-26] MEDS: Ondansetron 4 MG/2 ML VIAL IVP PRN (04:19)
[2022-01-26 04:48] LABS: Eosinophils # 0.2 K/mcL (0.0-0.6); Eosinophils % 5.7 %; Hematocrit 32.6 % (37.5-50.1); Hemoglobin 10.7 g/dL (12.9-16.9); Immature Granulocytes % 0.3 % (0-4); Lymphocytes # 1.6 K/mcL (0.6-4.6); Lymphocytes % 41.2 %; Mean Corpuscular HGB Conc 32.8 g/dL (31.6-35.5); Mean Corpuscular Hemoglobin 30.1 pg (28.0-33.3); Mean Corpuscular Volume 91.8 fL (83.0-100.0); Mean Platelet Volume 9.6 fL (9.4-12.4); Monocytes # 0.3 K/mcL (0.0-1.3); Monocytes % 8.5 %; Neutrophils # 1.7 K/mcL (1.6-8.9); Platelet Count 170 K/mcL (140-400); Red Blood Count 3.55 M/mcL (4.19-5.50); Red Cell Distribution Width 13.6 % (11.5-14.5); Segmented Neutrophils % 43.3 %; White Blood Count 3.9 K/mcL (4.3-11.1)
[2022-01-26 05:05] LABS: BUN/Creatinine Ratio 8 (6-26); Blood Urea Nitrogen 8 mg/dL (6-20); Calcium 8.7 mg/dL (8.6-10.3); Carbon Dioxide 27 mEq/L (23-29); Chloride 109 mEq/L (98-107); Glucose 82 mg/dL (70-105); Magnesium 1.9 mg/dL (1.6-2.6); Osmolality,Calculated 289 (280-300); Phosphorous 3.3 mg/dL (2.7-4.5); Potassium 3.5 mEq/L (3.5-5.1); Sodium 141 mEq/L (136-145)
[2022-01-26 07:18] VITALS: O2SAT 99
[2022-01-26] MEDS: Vancomycin 1,250 MG/262.5 ML IV.SOLN IVPB SCH (09:16)
[2022-01-26] MEDS: Gabapentin 300 MG CAPSULE PO SCH (09:17)
[2022-01-26] MEDS: Metoprolol XL (24 HR) Succ 50 MG TAB.ER.24H PO SCH (09:17)
[2022-01-26] MEDS: allopurinoL 100 MG TABLET PO SCH (09:17)
[2022-01-26] MEDS: Cyanocobalamin (B-12) 1,000 MCG TABLET PO SCH (09:18)
[2022-01-26] MEDS: Lactobacillus 1 EACH CAP.SPRINK PO SCH (09:18)
[2022-01-26] MEDS: Apixaban 5 MG TABLET PO SCH (09:18)
[2022-01-26] MEDS: Nystatin SUSP 5 ML UD.LIQ PO SCH (09:19)
[2022-01-26] MEDS: Magic Mouthwash 10 ML UD Cup PO SCH ×2 (09:30→11:53)
[2022-01-26] MEDS: Colchicine 0.6 MG TABLET PO SCH (09:30)
[2022-01-26 11:35] VITALS: PULSE 97; TEMP 98
[2022-01-26 11:50] VITALS: BP 132/62
== END 2022-01-26 14:14 | disposition home or self-care (01) | DRG 872 ==
LOC: 4WAOSI 17:20 → EMEROOARM 17:20 → 4WAOSI 22:17
PROVIDERS: ADMIT Internal Medicine; ATTEND Internal Medicine